=== PATIENT | male | born 1950 | race Two or more races ===

== ENCOUNTER 2016-11-15 20:04 | Inpatient (IN) | payer MEDICARE, OTHER ==
[~2016-11-15] VITALS: Ht 170.2 cm; Wt 90.7 kg
[~2016-11-15 20:04] MED LIST: ADVAIR 500-501 EACH INH; ASPIR 8181 MG ORAL; ASPIRIN81 MG ORAL; BROMFENAC 0.07%; CARVEDILOL25 MG ORAL; CLONAZEPAM2 MG PO; CLOPIDOGREL75 MG ORAL; DORZOLAMIDE HCL10 M1 OP; FISH OIL300 M1 PO; LISINOPRIL20 MG ORAL; LISINOPRIL5 MG ORAL; LOSARTAN POTASS50 MG ORAL; METOPROLOL TART50 M1 ORAL; NORVASC10 MG ORAL; OXYCODONE HCL10 MG ORAL; PANTOPRAZOLE SO20 MG ORAL; PLAVIX75 MG ORAL; PROTONIX40 MG ORAL; PROVENTIL HFA6.7 G1 IH; RENVELA800 MG ORAL; SENSIPAR90 MG PO; SPIRIVA INHALE1 PUF1 INH
[2016-11-15 20:12] VITALS: BP 145/78
[2016-11-15] MEDS ORDERED: Famotidine 20 MG/ 2ML VIAL IVP ONE (20:15)
[2016-11-15] MEDS ORDERED: Nitroglycerin 2% oint pkt TOPIC ONE (20:15)
[2016-11-15 20:59] LABS: BASOPHILS % (AUTO) 1.3 % (0.0-2.0); EOSINOPHILS % (AUTO) 14.3 % (0.0-3.0); LYMPHOCYTES % (AUTO) 22.1 % (20.0-45.0); MEAN CORPUSCULAR HEMOGLOBIN 29.5 PG (27.0-31.0); MEAN CORPUSCULAR VOLUME 92 FL (80-99); MEAN PLATELET VOLUME 5.7 FL (6.5-10.1); MONOCYTES % (AUTO) 5.8 % (1.0-10.0); NEUTROPHILS % (AUTO) 56.5 % (45.0-75.0); PLATELET COUNT 260 K/UL (150-450); RED BLOOD COUNT 4.16 M/UL (4.70-6.10); RED CELL DISTRIBUTION WIDTH 19.1 % (11.6-14.8); WHITE BLOOD COUNT 6.7 K/UL (4.8-10.8)
[2016-11-15 21:00] LABS: INR 0.9 (0.9-1.1); PROTHROMBIN TIME 9.5 SEC (9.30-11.50)
[2016-11-15 21:08] LABS: ALANINE AMINOTRANSFERASE 9 U/L (3-41); ALBUMIN/GLOBULIN RATIO 1.1 (1.0-2.7); ALCOHOL 107 mg/dL; ANION GAP 20 (5-15); ASPARTATE AMINO TRANSFERASE 14 U/L (5-40); CARBON DIOXIDE 25 mEQ/L (20-30); CHLORIDE 93 mEQ/L (98-107); CREATININE 7.5 mg/dL (0.7-1.2); GLOMERULAR FILTRATION RATE 7.3 mL/min (>60); HEMOLYSIS 3; POTASSIUM 4.7 mEQ/L (3.4-4.9); SODIUM 138 mEQ/L (135-145); TOTAL PROTEIN 8.5 g/dL (6.6-8.7)
[2016-11-15 21:11] LABS: TROPONIN I < 0.30 ng/mL (<=0.30)
[2016-11-15] MEDS ORDERED: Morphine Sulfate 4mg/ml Inj IVP ONE (21:15)
[2016-11-15 22:46] VITALS: BP 119/64
--- NOTE | 2016-11-15 22:53 | Emergency Room Report ---
History of Present Illness General Chief Complaint: Chest Pain Source: Patient Present Illness HPI Patient presents with left-sided chest pain. It's pressure. He states it's been for several days now ever since a revision of his last dialysis fistula in his left upper arm. Denies any cough or fever. Pain is 7/10, constant, radiates to shoulders, pressure. Not take aspirin today (on plavix). EKG field , ST PVCs, no STEMI. He has CAD and post CABG. Recent treadmill 06/2016. Prior stents. Patient with pain from neuropathy. No NVD, dysuria. No rashes. Slight headahce. No change vision. Diabetic on oral meds. Admits to drinking alcohol. Dialysis , , Sat. Allergies: Coded Allergies: ASPIRIN (Verified Allergy, Unknown, 11/15/16) Patient History Past Medical History: see triage record Past Surgical History: CABG, PTCA, other - fistula, metatarsal amputations Social History: Denies: smoking Social History Narrative home Reviewed Nursing Documentation: PMH: Agreed, PSxH: Agreed Nursing Documentation-PMH Hx Cardiac Problems: Yes - Carotid stent Hx Hypertension: Yes Hx COPD: Yes Hx Diabetes: Yes Hx Cancer: No Hx Gastrointestinal Problems: No Hx Dialysis: Yes Hx Neurological Problems: No Hx Peripheral Neuropathy: Yes Review of Systems All Other Systems: negative except mentioned in HPI Physical Exam Vital Signs Date Time Temp Pulse Resp B/P Pulse Ox O2 Delivery O2 Flow Rate FiO2 11/15/16 20:08 98.4 103 18 145/78 98 Room Air Sp02 EP Interpretation: reviewed, normal General Appearance: well appearing, no apparent distress, GCS 15, other - smells of alcohol Head: normocephalic Eyes: bilateral eye PERRL, bilateral eye normal inspection ENT: moist mucus membranes Neck: supple Respiratory: chest non-tender, lungs clear, normal breath sounds Cardiovascular #1: regular rate, rhythm, no edema Cardiovascular #2: 2+ radial (L) - fistula LUE with thrill Gastrointestinal: normal inspection, normal bowel sounds, non tender, no mass, non-distended Musculoskeletal: back normal, gait/station normal, normal range of motion, other - post metatarsal amputations Neurologic: alert, oriented x3, grossly normal Psychiatric: mood/affect normal Skin: normal inspection, warm/dry Medical Decision Making Diagnostic Impression: Primary Impression: ACS (acute coronary syndrome) Additional Impressions: ESRD (end stage renal disease) on dialysis Alcohol intoxication Qualified Codes: F10.129 - Alcohol abuse with intoxication, unspecified ER Course Patient with risk factors for ACS with CP. DDx: ami, acs, chest wall pain, CHF , occult infection amongst others. Immediate evaluation with labs, EKG, CXR. Treatment with aspirin and nitrates. Patient with pain and given analgesics. EKG not normal but not STEMI. CXR as below. Labs with negative troponin. BA + and significant. BNP high, will need dialysis, but NAD. Needs observation for possible ACS. Requiring significant doses of analgesia. Apparent h/o chronic pain. Admit tele Dr. Darden. Laboratory Tests Test 11/15/16 20:30 White Blood Count 6.7 K/UL (4.8-10.8) Red Blood Count 4.16 M/UL (4.70-6.10) L Hemoglobin 12.3 G/DL (14.2-18.0) L Hematocrit 38.4 % (42.0-52.0) L Mean Corpuscular Volume 92 FL (80-99) Mean Corpuscular Hemoglobin 29.5 PG (27.0-31.0) Mean Corpuscular Hemoglobin Concent 32.0 G/DL (32.0-36.0) Red Cell Distribution Width 19.1 % (11.6-14.8) H Platelet Count 260 K/UL (150-450) Mean Platelet Volume 5.7 FL (6.5-10.1) L Neutrophils (%) (Auto) 56.5 % (45.0-75.0) Lymphocytes (%) (Auto) 22.1 % (20.0-45.0) Monocytes (%) (Auto) 5.8 % (1.0-10.0) Eosinophils (%) (Auto) 14.3 % (0.0-3.0) H Basophils (%) (Auto) 1.3 % (0.0-2.0) Prothrombin Time 9.5 SEC (9.30-11.50) Prothrombin Time INR 0.9 (0.9-1.1) PTT 28 SEC (23-33) Sodium Level 138 mEQ/L (135-145) Potassium Level 4.7 mEQ/L (3.4-4.9) Chloride Level 93 mEQ/L (98-107) L Carbon Dioxide Level 25 mEQ/L (20-30) Anion Gap 20 (5-15) H Blood Urea Nitrogen 31 mg/dL (7-23) H Creatinine 7.5 mg/dL (0.7-1.2) H Estimate Glomerular Filtration Rate 7.3 mL/min (>60) Glucose Level 141 mg/dL (74-106) H Calcium Level 9.0 mg/dL (8.6-10.2) Total Bilirubin 0.3 mg/dL (0.0-1.2) Aspartate Amino Transferase (AST) 14 U/L (5-40) Alanine Aminotransferase (ALT) 9 U/L (3-41) Alkaline Phosphatase 124 U/L (40-129) Total Creatine Kinase 70 U/L (38-174) Troponin I < 0.30 ng/mL (<=0.30) Pro-B-Type Natriuretic Peptide 6369 pg/mL (0-125) H Total Protein 8.5 g/dL (6.6-8.7) Albumin 4.5 g/dL (3.5-5.2) Globulin 4.0 g/dL Albumin/Globulin Ratio 1.1 (1.0-2.7) Serum Alcohol 107 mg/dL EKG Diagnostic Results Rate: tachycardiac ST Segments: no acute changes - NSSTTW changes ASA given to the pt in ED: Yes Rhythm Strip Diag. Results EP Interpretation: yes Rhythm: no PVC's, no ectopy, other - ST Chest X-Ray Diagnostic Results EP Interpretation: Yes Findings: no pneumothorax, other - pulm HTN and possible L effusion Number of Views: 1 Last Vital Signs Date Time Temp Pulse Resp B/P Pulse Ox O2 Delivery O2 Flow Rate FiO2 11/16/16 04:13 97.9 99 20 152/87 97 Room Air Status: improved Disposition: ADMITTED INPATIENT Condition: Serious Referrals: Baldev Darden MD (PCP) Robert Barone M.D. Nov 15, 2016 22:53
[2016-11-15] MEDS ORDERED: HYDROmorphone 1mg/ml Carpuject IVP ONE (23:00)
[2016-11-16] VITALS: BP 156/91
[2016-11-16] MEDS ORDERED: LIPITOR80 MG ORAL (02:09)
[2016-11-16] MEDS ORDERED: VITAMIN D400 UNI2 PO (02:09)
[2016-11-16] MEDS: Hydromorphone 0.5mg/0.5ml inj IVP PRN ×2 (03:44→08:53)
[2016-11-16 04:13] VITALS: BP 152/87
[2016-11-16] MEDS: NovoLOG Insulin Flexpen SUBQ SCH ×4 (06:22→21:00)
[2016-11-16] MEDS: Heparin 5000 units/ml inj SUBQ SCH ×3 (06:23→21:16)
[2016-11-16 07:29] LABS: ALBUMIN/GLOBULIN RATIO 1.2 (1.0-2.7); CALCIUM 8.6 mg/dL (8.6-10.2); CREATININE 8.5 mg/dL (0.7-1.2); GLOMERULAR FILTRATION RATE 6.3 mL/min (>60); MAGNESIUM 2.2 mg/dL (1.7-2.5); TOTAL PROTEIN 6.8 g/dL (6.6-8.7)
[2016-11-16 07:40] LABS: BASOPHILS % (AUTO) 1.3 % (0.0-2.0); EOSINOPHILS % (AUTO) 14.4 % (0.0-3.0); LYMPHOCYTES % (AUTO) 21.5 % (20.0-45.0); MEAN CORPUSCULAR HEMOGLOBIN 29.7 PG (27.0-31.0); MEAN CORPUSCULAR HGB CONC 32.9 G/DL (32.0-36.0); MEAN CORPUSCULAR VOLUME 90 FL (80-99); MEAN PLATELET VOLUME 5.9 FL (6.5-10.1); MONOCYTES % (AUTO) 7.5 % (1.0-10.0); NEUTROPHILS % (AUTO) 55.3 % (45.0-75.0); PLATELET COUNT 256 K/UL (150-450); RED CELL DISTRIBUTION WIDTH 19.2 % (11.6-14.8); WHITE BLOOD COUNT 6.4 K/UL (4.8-10.8)
[2016-11-16 07:43] LABS: TROPONIN I < 0.30 ng/mL (<=0.30)
[2016-11-16 07:59] LABS: POTASSIUM 6.9 mEQ/L (3.4-4.9)
[2016-11-16] MEDS ORDERED: Sodium Polystyrene Sulfonate 15gm Powder ORAL ONE (08:30)
[2016-11-16] MEDS: Losartan 25mg tab ORAL SCH (08:54)
[2016-11-16] MEDS: Carvedilol 25mg Tab ORAL SCH (08:54)
[2016-11-16] MEDS: Metoprolol 50mg tab ORAL SCH ×2 (08:54→18:51)
[2016-11-16] MEDS ORDERED: Losartan 50mg tab ORAL SCH (09:00)
[2016-11-16] MEDS ORDERED: Sensipar 30mg Tab ORAL SCH ×2 (09:00)
[2016-11-16 09:30] VITALS: BP 184/93
--- NOTE | 2016-11-16 11:24 | History & Physical ---
History and Physical History & Physicial Dictated for Int Med-Dr Darden no. [id number]. VINCENT ROBERSON Nov 16, 2016 11:24
--- NOTE | 2016-11-16 11:52 | Diagnostic Imaging Report ---
Indication: Chest pain Technique: One view of the chest Comparison: 06/15/2016 Findings: Power pack again overlies the heart, demonstrated on prior CT represent a subcutaneous power pack. There is now a left-sided pleural effusion, [id number]. No definite congestion or infiltrate. Right pleural space is clear. The heart is borderline enlarged. Evidence of prior CABG Impression: Left pleural effusion, new since 06/15/2016 Other findings as noted This represents a discrepancy from the ER preliminary report. Discrepant findings were phoned to Dr. Darden at the time of interpretation
--- NOTE | 2016-11-16 11:54 | Consultation ---
Consult Note Consult Note 66 YO M with significant cardiac history BIBEMS Patient presents with left-sided chest pain. It's pressure. He states it's been for several days now ever since a revision of his last dialysis fistula in his left upper arm. Denies any cough or fever. i was asked to evaluate the patient at the request of Dr Darden for dialysis management PH: 1. Coronary artery disease, status post stent placement in 2013 and coronary artery bypass graft in 2015. 2. Diabetes type 2. 3. Hypertension. 4. End-stage renal disease, on hemodialysis every Wednesday, , and Wednesday. The patient's last dialysis was 06/13/16 5. Diabetic peripheral neuropathy. 6. Peripheral vascular disease. 7. Diabetic nephropathy. Patient interviewed, Examined, Labs reviewed . Assessment/Plan ESRD with high K ACS Plan: Dialysis [facility]A for high K Per cardiology GUNNER BARRERA Nov 16, 2016 11:54
--- NOTE | 2016-11-16 12:14 | Cardiology Report ---
APPROVED REPORT EKG Measurement Heart [id number] [id number] Sinus tachycardia Anteroseptal infarct, age undetermined Abnormal ECG
[2016-11-16 13:01] VITALS: BP 123/50
--- NOTE | 2016-11-16 14:02 | Cardiac Electrophysiology PN ---
Subjective Subjective [id number]. CP in a patient with CABG and no ischemia on stress test 06/2016. Repeat stress test. Objective Last 24 Hour Vital Signs Date Time Temp Pulse Resp B/P Pulse Ox O2 Delivery O2 Flow Rate FiO2 11/16/16 13:01 97.2 98 18 123/50 96 Room Air 11/16/16 13:00 Room Air 11/16/16 12:00 102 11/16/16 10:02 Room Air 11/16/16 09:30 98.0 96 20 184/93 Room Air 11/16/16 08:54 153/85 11/16/16 08:54 94 153/85 11/16/16 08:54 94 153/85 11/16/16 08:54 94 153/85 11/16/16 08:53 96 18 99 Room Air 21 11/16/16 08:53 96 18 99 Room Air 21 11/16/16 08:00 99 11/16/16 04:13 97.9 99 20 152/87 97 Room Air 11/16/16 03:55 99 11/16/16 00:13 99 11/16/16 00:00 98.1 103 20 156/91 95 Room Air 11/15/16 23:15 98.4 100 22 119/64 98 Room Air 11/15/16 22:46 98.4 100 22 119/64 98 Room Air 11/15/16 21:59 98.4 11/15/16 20:41 121/56 11/15/16 20:12 103 18 Room Air 11/15/16 20:12 98.4 97 18 145/78 98 Room Air 11/15/16 20:08 98.4 103 18 145/78 98 Room Air Intake and Output 11/15/16 11/16/16 19:00 07:00 Intake Total 140 ml Balance 140 ml Intake Oral 140 ml Laboratory Tests Test 11/15/16 20:30 11/16/16 05:15 White Blood Count 6.7 K/UL (4.8-10.8) 6.4 K/UL (4.8-10.8) Red Blood Count 4.16 M/UL (4.70-6.10) L 4.00 M/UL (4.70-6.10) L Hemoglobin 12.3 G/DL (14.2-18.0) L 11.9 G/DL (14.2-18.0) L Hematocrit 38.4 % (42.0-52.0) L 36.1 % (42.0-52.0) L Mean Corpuscular Volume 92 FL (80-99) 90 FL (80-99) Mean Corpuscular Hemoglobin 29.5 PG (27.0-31.0) 29.7 PG (27.0-31.0) Mean Corpuscular Hemoglobin Concent 32.0 G/DL (32.0-36.0) 32.9 G/DL (32.0-36.0) Red Cell Distribution Width 19.1 % (11.6-14.8) H 19.2 % (11.6-14.8) H Platelet Count 260 K/UL (150-450) 256 K/UL (150-450) Mean Platelet Volume 5.7 FL (6.5-10.1) L 5.9 FL (6.5-10.1) L Neutrophils (%) (Auto) 56.5 % (45.0-75.0) 55.3 % (45.0-75.0) Lymphocytes (%) (Auto) 22.1 % (20.0-45.0) 21.5 % (20.0-45.0) Monocytes (%) (Auto) 5.8 % (1.0-10.0) 7.5 % (1.0-10.0) Eosinophils (%) (Auto) 14.3 % (0.0-3.0) H 14.4 % (0.0-3.0) H Basophils (%) (Auto) 1.3 % (0.0-2.0) 1.3 % (0.0-2.0) Prothrombin Time 9.5 SEC (9.30-11.50) Prothromb Time International Ratio 0.9 (0.9-1.1) Activated Partial Thromboplast Time 28 SEC (23-33) Sodium Level 138 mEQ/L (135-145) 140 mEQ/L (135-145) Potassium Level 4.7 mEQ/L (3.4-4.9) 6.9 mEQ/L (3.4-4.9) *H Chloride Level 93 mEQ/L (98-107) L 97 mEQ/L (98-107) L Carbon Dioxide Level 25 mEQ/L (20-30) 26 mEQ/L (20-30) Anion Gap 20 (5-15) H 17 (5-15) H Blood Urea Nitrogen 31 mg/dL (7-23) H 39 mg/dL (7-23) H Creatinine 7.5 mg/dL (0.7-1.2) H 8.5 mg/dL (0.7-1.2) H Estimat Glomerular Filtration Rate 7.3 mL/min (>60) 6.3 mL/min (>60) Glucose Level 141 mg/dL (74-106) H 110 mg/dL (74-106) H Calcium Level 9.0 mg/dL (8.6-10.2) 8.6 mg/dL (8.6-10.2) Total Bilirubin 0.3 mg/dL (0.0-1.2) 0.3 mg/dL (0.0-1.2) Aspartate Amino Transf (AST/SGOT) 14 U/L (5-40) 11 U/L (5-40) Alanine Aminotransferase (ALT/SGPT) 9 U/L (3-41) 5 U/L (3-41) Alkaline Phosphatase 124 U/L (40-129) 114 U/L (40-129) Total Creatine Kinase 70 U/L (38-174) Troponin I < 0.30 ng/mL (<=0.30) < 0.30 ng/mL (<=0.30) Pro-B-Type Natriuretic Peptide 6369 pg/mL (0-125) H Total Protein 8.5 g/dL (6.6-8.7) 6.8 g/dL (6.6-8.7) Albumin 4.5 g/dL (3.5-5.2) 3.8 g/dL (3.5-5.2) Globulin 4.0 g/dL 3.0 g/dL Albumin/Globulin Ratio 1.1 (1.0-2.7) 1.2 (1.0-2.7) Serum Alcohol 107 mg/dL Phosphorus Level 5.0 mg/dL (2.5-4.8) H Magnesium Level 2.2 mg/dL (1.7-2.5) LUISA JHAVERI Nov 16, 2016 14:02
[2016-11-16 14:59] LABS: CALCIUM 8.4 mg/dL (8.6-10.2); CREATININE 5.2 mg/dL (0.7-1.2); GLOMERULAR FILTRATION RATE 11.2 mL/min (>60); POTASSIUM 3.8 mEQ/L (3.4-4.9)
--- NOTE | 2016-11-16 15:10 | Consultation ---
History of Present Illness General Date patient seen: Nov 16, 2016 Chief Complaint: Chest Pain Referring physician: Dr. Marie Reason for Consultation: Pleural effusion Present Illness HPI 66 year old male with hx of HTN, DM, ESRF, on HD T, ,, patient [place] [facility] [place] with cc of left-sided chest pain. It's pressure like . He states it's been for several days now ever since a revision of his last dialysis fistula in his left upper arm. Denies any cough or fever. Her initial cxr showed left pleural effusion. I was asked to evaluate this finding. Allergies: Coded Allergies: ASPIRIN (Verified Allergy, Unknown, 11/15/16) Medication History Scheduled Amlodipine Besylate (Norvasc), 10 MG ORAL DAILY, (Reported) Atorvastatin (Lipitor), 40 MG ORAL BEDTIME, (Reported) Carvedilol* (Carvedilol*), 25 MG ORAL DAILY, (Reported) Clonazepam (Clonazepam), 2 MG PO TID, (Reported) Clopidogrel Bisulfate* (Plavix*), 75 MG ORAL DAILY, (Reported) Losartan Potassium* (Losartan Potassium*), 50 MG ORAL DAILY, (Reported) Metoprolol Tartrate* (Metoprolol Tartrate*), 50 MG ORAL BID, (Reported) Pantoprazole* (Protonix*), 40 MG ORAL DAILY, (Reported) Sevelamer Carbonate (Renvela), 800 MG ORAL THREE TIMES A DAY, (Reported) Tiotropium [place] (Spiriva), 1 PUFF INH DAILY, (Reported) Miscellaneous Medications Cholecalciferol (Vitamin D3) (Vitamin D), 400 UNIT PO, (Reported) Cinacalcet Hcl (Sensipar), 90 MG PO, (Reported) Discontinued Medications Albuterol Sulfate (Proventil Hfa), 6.7 GM IH PRN, (Reported) Discontinued Reason: MD discontinued med Aspirin* (Aspirin*), 81 MG ORAL DAILY, (Reported) Discontinued Reason: MD discontinued med Aspirin* (Aspir 81*), 81 MG ORAL DAILY, (Reported) Discontinued Reason: MD discontinued med Clopidogrel* (Clopidogrel*), 75 MG ORAL DAILY, (Reported) Discontinued Reason: MD discontinued med Dorzolamide Hcl (Dorzolamide Hcl), 10 ML OP, (Reported) Discontinued Reason: MD discontinued med Fluticasone/Salmeterol (Advair 500-50 Diskus), 1 PUFF INH BID, (Reported) Discontinued Reason: MD discontinued med Lisinopril (Lisinopril*), 40 MG ORAL DAILY, (Reported) Discontinued Reason: MD discontinued med Lisinopril (Lisinopril*), 5 MG ORAL DAILY, (Reported) Discontinued Reason: MD discontinued med [place]-3 Fatty Acids (Fish Oil), 800 MG PO BID, (Reported) Discontinued Reason: MD discontinued med Oxycodone Hcl* (Oxycodone Hcl*), 10 MG ORAL BID, (Reported) Discontinued Reason: MD discontinued med Pantoprazole (Pantoprazole), 40 MG ORAL BID, (Reported) Discontinued Reason: MD discontinued med [Prolensa 0.07% Opth], (Reported) Discontinued Reason: MD discontinued med Patient History Healthcare decision maker Resuscitation status Full Code Advanced Directive on File Past Medical/Surgical History Past Medical/Surgical History: (1) Diabetic peripheral neuropathy (2) End stage renal failure on dialysis (3) Chest pain (4) Anemia (5) Diabetes mellitus (6) Hemodialysis patient Review of Systems Cardiovascular: Reports: chest pain All Other Systems: negative except mentioned in HPI Physical Exam General Appearance: WD/WN Lines, tubes and drains: peripheral, dialysis access HEENT: normocephalic, atraumatic Neck: non-tender, supple Respiratory/Chest: chest wall non-tender, lungs clear Cardiovascular/Chest: normal peripheral pulses, normal rate Abdomen: normal bowel sounds, non tender Genitourinary/Rectal: normal genital exam Extremities: normal range of motion, non-tender 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 Last 24 Hour Vital Signs Date Time Temp Pulse Resp B/P Pulse Ox O2 Delivery O2 Flow Rate FiO2 11/16/16 13:01 97.2 98 18 123/50 96 Room Air 11/16/16 13:00 Room Air 11/16/16 12:00 102 11/16/16 10:02 Room Air 11/16/16 09:30 98.0 96 20 184/93 Room Air 11/16/16 08:54 153/85 11/16/16 08:54 94 153/85 11/16/16 08:54 94 153/85 11/16/16 08:54 94 153/85 11/16/16 08:53 96 18 99 Room Air 21 11/16/16 08:53 96 18 99 Room Air 21 11/16/16 08:00 99 11/16/16 04:13 97.9 99 20 152/87 97 Room Air 11/16/16 03:55 99 11/16/16 00:13 99 11/16/16 00:00 98.1 103 20 156/91 95 Room Air 11/15/16 23:15 98.4 100 22 119/64 98 Room Air 11/15/16 22:46 98.4 100 22 119/64 98 Room Air 11/15/16 21:59 98.4 11/15/16 20:41 121/56 11/15/16 20:12 103 18 Room Air 11/15/16 20:12 98.4 97 18 145/78 98 Room Air 11/15/16 20:08 98.4 103 18 145/78 98 Room Air Intake and Output 11/15/16 11/16/16 19:00 07:00 Intake Total 140 ml Balance 140 ml Intake Oral 140 ml Laboratory Tests Test 11/15/16 20:30 11/16/16 05:15 11/16/16 14:30 White Blood Count 6.7 K/UL (4.8-10.8) 6.4 K/UL (4.8-10.8) Red Blood Count 4.16 M/UL (4.70-6.10) L 4.00 M/UL (4.70-6.10) L Hemoglobin 12.3 G/DL (14.2-18.0) L 11.9 G/DL (14.2-18.0) L Hematocrit 38.4 % (42.0-52.0) L 36.1 % (42.0-52.0) L Mean Corpuscular Volume 92 FL (80-99) 90 FL (80-99) Mean Corpuscular Hemoglobin 29.5 PG (27.0-31.0) 29.7 PG (27.0-31.0) Mean Corpuscular Hemoglobin Concent 32.0 G/DL (32.0-36.0) 32.9 G/DL (32.0-36.0) Red Cell Distribution Width 19.1 % (11.6-14.8) H 19.2 % (11.6-14.8) H Platelet Count 260 K/UL (150-450) 256 K/UL (150-450) Mean Platelet Volume 5.7 FL (6.5-10.1) L 5.9 FL (6.5-10.1) L Neutrophils (%) (Auto) 56.5 % (45.0-75.0) 55.3 % (45.0-75.0) Lymphocytes (%) (Auto) 22.1 % (20.0-45.0) 21.5 % (20.0-45.0) Monocytes (%) (Auto) 5.8 % (1.0-10.0) 7.5 % (1.0-10.0) Eosinophils (%) (Auto) 14.3 % (0.0-3.0) H 14.4 % (0.0-3.0) H Basophils (%) (Auto) 1.3 % (0.0-2.0) 1.3 % (0.0-2.0) Prothrombin Time 9.5 SEC (9.30-11.50) Prothromb Time International Ratio 0.9 (0.9-1.1) Activated Partial Thromboplast Time 28 SEC (23-33) Sodium Level 138 mEQ/L (135-145) 140 mEQ/L (135-145) 140 mEQ/L (135-145) Potassium Level 4.7 mEQ/L (3.4-4.9) 6.9 mEQ/L (3.4-4.9) *H 3.8 mEQ/L (3.4-4.9) Chloride Level 93 mEQ/L (98-107) L 97 mEQ/L (98-107) L 92 mEQ/L (98-107) L Carbon Dioxide Level 25 mEQ/L (20-30) 26 mEQ/L (20-30) 33 mEQ/L (20-30) H Anion Gap 20 (5-15) H 17 (5-15) H 15 (5-15) Blood Urea Nitrogen 31 mg/dL (7-23) H 39 mg/dL (7-23) H 19 mg/dL (7-23) Creatinine 7.5 mg/dL (0.7-1.2) H 8.5 mg/dL (0.7-1.2) H 5.2 mg/dL (0.7-1.2) H Estimat Glomerular Filtration Rate 7.3 mL/min (>60) 6.3 mL/min (>60) 11.2 mL/min (>60) Glucose Level 141 mg/dL (74-106) H 110 mg/dL (74-106) H 100 mg/dL (74-106) Calcium Level 9.0 mg/dL (8.6-10.2) 8.6 mg/dL (8.6-10.2) 8.4 mg/dL (8.6-10.2) L Total Bilirubin 0.3 mg/dL (0.0-1.2) 0.3 mg/dL (0.0-1.2) Aspartate Amino Transf (AST/SGOT) 14 U/L (5-40) 11 U/L (5-40) Alanine Aminotransferase (ALT/SGPT) 9 U/L (3-41) 5 U/L (3-41) Alkaline Phosphatase 124 U/L (40-129) 114 U/L (40-129) Total Creatine Kinase 70 U/L (38-174) Troponin I < 0.30 ng/mL (<=0.30) < 0.30 ng/mL (<=0.30) Pro-B-Type Natriuretic Peptide 6369 pg/mL (0-125) H Total Protein 8.5 g/dL (6.6-8.7) 6.8 g/dL (6.6-8.7) Albumin 4.5 g/dL (3.5-5.2) 3.8 g/dL (3.5-5.2) Globulin 4.0 g/dL 3.0 g/dL Albumin/Globulin Ratio 1.1 (1.0-2.7) 1.2 (1.0-2.7) Serum Alcohol 107 mg/dL Phosphorus Level 5.0 mg/dL (2.5-4.8) H Magnesium Level 2.2 mg/dL (1.7-2.5) Height (Feet): 5 Height (Inches): 7.00 Weight (Pounds): 200 Medications Current Medications Medications (Trade) Dose Ordered Sig/Krissy Route PRN Reason Start Time Stop Time Status Last Admin Dose Admin Amlodipine Besylate (Norvasc) 10 mg DAILY ORAL 11/16/16 09:00 12/16/16 08:59 Atorvastatin Calcium (Lipitor) 40 mg BEDTIME ORAL 11/16/16 21:00 12/16/16 20:59 Carvedilol (Coreg) 25 mg DAILY ORAL 11/16/16 09:00 12/16/16 08:59 Clonazepam (KlonoPIN) 2 mg TID ORAL 11/16/16 09:00 11/23/16 08:59 11/16/16 13:08 Clopidogrel Bisulfate (Plavix) 75 mg DAILY ORAL 11/16/16 09:00 12/16/16 08:59 11/16/16 08:52 Dextrose (Dextrose 50%) STAT PRN IV Hypoglycemia 11/16/16 02:00 12/16/16 01:59 Heparin Sodium (Porcine) (Heparin 5000 units/ml) 5,000 units EVERY 8 HOURS SUBQ 11/16/16 06:00 12/16/16 05:59 11/16/16 13:12 Hydromorphone HCl (Dilaudid) 2 mg Q4H PRN IVP PAIN 4-10 11/16/16 12:00 11/23/16 11:59 11/16/16 12:05 Insulin Aspart (NovoLOG) BEFORE MEALS AND HS SUBQ 11/16/16 06:30 12/16/16 06:29 11/16/16 12:11 Losartan Potassium (Cozaar) 25 mg DAILY ORAL 11/16/16 09:00 12/16/16 08:59 Metoprolol Tartrate (Lopressor) 50 mg BID ORAL 11/16/16 09:00 12/16/16 08:59 Pantoprazole (Protonix) 40 mg EVERY 12 HOURS ORAL 11/16/16 09:00 12/16/16 08:59 11/16/16 08:52 Sevelamer Carbonate (Renvela) 2,400 mg THREE TIMES A DAY ORAL 11/16/16 09:00 12/16/16 08:59 11/16/16 13:08 Tiotropium [place] (Spiriva Inhaler) 1 puff DAILY INH 11/16/16 09:00 12/16/16 08:59 11/16/16 08:53 Vitamin D (Vitamin D) 1,000 intlu DAILY ORAL 11/17/16 09:00 12/17/16 08:59 Assessment/Plan Problem List: (1) Pleural effusion ICD Codes: J90 - Pleural effusion, not elsewhere classified SNOMED: 91136260 (2) Acute coronary syndrome ICD Codes: I24.9 - Acute ischemic heart disease, unspecified SNOMED: 995017660 (3) End stage renal failure on dialysis ICD Codes: N18.6 - End stage renal disease; Z99.2 - Dependence on renal dialysis SNOMED: 474699463 (4) Diabetes mellitus ICD Codes: E11.9 - Type 2 diabetes mellitus without complications SNOMED: 69881090 (5) HTN (hypertension) ICD Codes: I10 - Essential (primary) hypertension SNOMED: 48982419 Qualifiers: Qualified Codes: I10 - Essential (primary) hypertension Assessment/Plan serial ekg, troponin, echo symptomatic treatment pleural effusion is most likely secondary to fluid overload, there is no leukocytosis, fever or any other sing of infection or inflammation. suggest to remove more fluid during Hd. F/u cxr in a few days. JUAN SPENCE Nov 16, 2016 15:10
[2016-11-16 16:00] VITALS: BP 156/73
--- NOTE | 2016-11-16 20:39 | History and Physical Report ---
DATE OF ADMISSION: 11/15/2016 CHIEF COMPLAINT: The patient is a 66-year-old male with history of coronary artery disease, who presents with chief complaint of left-sided chest pain. HISTORY OF PRESENT ILLNESS: Began on 11/13/2016. The patient began to experience left-sided chest pain. There is no radiation to the jaw or to the shoulder. The patient has a history of coronary artery disease, status post coronary artery bypass graft. The patient's initial troponin level was within normal limits. The patient is admitted for chest pain to rule out acute coronary syndrome. Of note, the patient's BNP was found to be elevated at 6369. PAST MEDICAL HISTORY: Significant for. 1. Coronary artery disease, status post coronary artery bypass graft. 2. Diabetes type 2. 3. Hypertension. 4. End-stage renal disease, on hemodialysis every Wednesday, , and Wednesday. The patient's last dialysis was on 11/13/2016. 5. Hypertension. 6. Diabetic peripheral neuropathy. 7. Peripheral vascular disease. 8. Diabetic nephropathy. PAST SURGICAL HISTORY: Significant for. 1. Coronary artery bypass graft in 2015. 2. Coronary artery stent placement in 2013. 3. Left arteriovenous graft for dialysis. 4. 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 CURRENT MEDICATIONS: 1. Norvasc 10 mg one tablet p.o. daily. 2. Lipitor 40 mg one tablet p.o. q.h.s. 3. Carvedilol 25 mg one tablet p.o. twice daily. 4. Vitamin D3 400 units p.o. daily. 5. Sensipar 90 mg one tablet p.o. daily. 6. Clonazepam 2 mg one tablet p.o. 3 times daily. 7. Plavix 75 mg one tablet p.o. daily. 8. Losartan 50 mg one tablet p.o. daily. 9. Metoprolol 50 mg one tablet p.o. twice daily. 10. Protonix 40 mg one tablet p.o. daily. 11. Renvela 800 mg one tablet p.o. 3 times daily. 12. Spiriva 18 mcg one puff p.o. daily. ALLERGIES: Aspirin. SOCIAL HISTORY: The patient is . The patient is disabled. The patient denies tobacco use having quit in 2014. The patient admits to rare alcohol use. REVIEW OF SYSTEMS: Constitutional: The patient denies weight loss or weight gain. The patient denies fevers or chills. HEENT: The patient denies ear or throat pain. Cardiovascular: The patient complains of chest pain as above. The patient states chest pain is worse with deep inspiration. The patient denies palpitations. Abdomen: The patient denies nausea, vomiting, diarrhea, or constipation. Genitourinary: The patient denies dysuria or increased frequency of urination. Neuromuscular: The patient denies seizures or generalized weakness. PHYSICAL EXAMINATION: VITAL SIGNS: Temperature 97.9 degrees, pulse 99, respiratory rate 20, and blood pressure 152/87. GENERAL: The patient is a well-developed and well-nourished male, who is currently on dialysis. HEENT: Eyes, pupils are equal and responsive to light and accommodation. Extraocular movements are intact. NECK: Supple without lymphadenopathy. CHEST: Lungs are clear to auscultation bilaterally without wheezes or rales. CARDIOVASCULAR: Regular rhythm and rate. S1 and S2 are normal without murmurs, rubs, or gallops. ABDOMEN: Soft, nontender, and nondistended. Positive bowel sounds. No evidence of hepatosplenomegaly. Currently, no rebound or guarding. EXTREMITIES: Presence of bilateral metatarsal amputations. Otherwise, without clubbing, cyanosis, or edema. RECTAL/GENITAL: Refused. NEUROLOGIC: Cranial nerves II through XII are grossly intact without focal deficits. Motor strength is 5/5 bilaterally. Deep tendon reflexes are 2+ plantar. LABORATORY STUDIES: WBC 6.7, hemoglobin 12.2, hematocrit 30.4, and platelets 216,000. Sodium 138, potassium 4.7, chloride 93, CO2 25, BUN 31, creatinine 7.5, and glucose 141. BNP elevated at 6359. Troponin normal at less than 0.3. Chest x-ray is pending. ASSESSMENT: This is a 66-year-old male. 1. Chest pain. 2. Type 2 diabetes. 3. Uncontrolled hypertension. 4. End-stage renal disease. 5. Diabetic nephropathy. 6. Diabetic peripheral vascular disease. TREATMENT: 1. Chest pain. A Cardiology consultation is pending with Dr. Carlos Springer. An echocardiogram is pending. 2. End-stage renal disease. A Nephrology consultation has been obtained with Dr. Jose Flores. The patient is currently on hemodialysis. We will follow recommendation of Nephrology concerning dialysis. The patient's current potassium level is 6.9. The patient is receiving emergent dialysis. 3. Hypertension. Continue Norvasc and Coreg as above. 4. Diabetic peripheral neuropathy. 5. Diabetic peripheral nephropathy. 6. History of peripheral vascular disease, status post amputation bilateral metatarsal feet. Dima Marie M.D. DR: DMITRI JOB#: [id number] CC:
--- NOTE | 2016-11-16 21:59 | Consultation ---
DATE OF CONSULTATION: 11/16/2016 CARDIOLOGY CONSULTATION CONSULTING PHYSICIAN: Carlos Springer M.D. REFERRING PHYSICIAN: Baldev Darden M.D. REASON FOR CONSULTATION: Chest pain in addition with history of coronary artery bypass graft. HISTORY OF PRESENT ILLNESS: The patient is a very pleasant 66-year-old gentleman under my Cardiology care with history of hypertension, diabetes, coronary artery disease, history of stent in 2013, and coronary artery bypass graft in 01/2006 at [facility]. He also and he is on hemodialysis as of diabetic neuropathy. The patient was last evaluated at [facility] with chest pain. When I evaluate him in 06/2016, at that time, the patient underwent echocardiogram showed ejection fraction of 60% to 65% and underwent a nuclear stress test as well. His stress test of 06/17/2016 show no evidence of ischemia and was consistent with an infarct. At the time of my evaluation, the patient denies any chest pain or shortness of breath. PAST MEDICAL HISTORY: 1. Hypertension. 2. Coronary artery disease. 3. History of coronary artery bypass graft. 4. Diabetes. 5. Anemia. 6. End-stage renal disease. 7. History of blood transfusion. FAMILY HISTORY: Noncontributory. SOCIAL HISTORY: Does not smoke or drink alcohol. REVIEW OF SYSTEMS: Review of systems was performed and was negative other than what was mentioned in history of present illness. PHYSICAL EXAMINATION: VITAL SIGNS: Blood pressure is 122/50, pulse 90, respirations 20, and temperature 98.2 degrees. HEAD AND NECK: Showed no JVD. LUNGS: Clear. CARDIOVASCULAR: Shows a regular S1 and S2 with no gallop or murmur. Sternotomy is intact. ABDOMEN: Soft. EXTREMITIES: No pitting edema. LABORATORY DATA: Show white count of 6.4, hemoglobin 11.9, hematocrit of 36.1, and platelet of 256,000. Sodium was 140, potassium 6.9, BUN 39, creatinine 8.5, and glucose of 110. Troponin is negative x2. BNP is 6900. INR is 0.9. D-dimer is 2. ASSESSMENT AND PLAN: 1. Chest pain. The patient has history of coronary artery bypass graft. The patient was also ruled out for myocardial infarction. His EKG shows sinus tachycardia with anteroseptal infarct with no acute ischemic changes. We will reschedule the patient for nuclear stress test for further evaluation and management. We will repeat echocardiogram to make sure he has not developed a pericardial effusion as he is a dialysis patient. 2. Hypertension. Continue Coreg 25 mg b.i.d. and Norvasc 10 mg daily and Lopressor 50 mg b.i.d. and Cozaar 25 mg daily. 3. Hyperkalemia. The patient will be getting hemodialysis. 4. End-stage renal disease, on hemodialysis. 5. Anemia status post blood transfusion on previous admission. Thank you very much, Dr. Darden, for allowing me to participate in the care of this patient. Please do not hesitate to contact me for any questions regarding my evaluation. Carlos Springer M.D. DR: NUSRAT JOB#: [id number] CC:
[2016-11-17] VITALS: BP 100/69
[2016-11-17 04:00] VITALS: BP 117/79
[2016-11-17] MEDS: NovoLOG Insulin Flexpen SUBQ SCH ×4 (06:30→21:51)
[2016-11-17] MEDS: Heparin 5000 units/ml inj SUBQ SCH ×3 (06:53→21:52)
[2016-11-17 08:02] LABS: BASOPHILS % (AUTO) 1.2 % (0.0-2.0); EOSINOPHILS % (AUTO) 15.5 % (0.0-3.0); LYMPHOCYTES % (AUTO) 22.6 % (20.0-45.0); MEAN CORPUSCULAR HEMOGLOBIN 29.6 PG (27.0-31.0); MEAN CORPUSCULAR HGB CONC 31.6 G/DL (32.0-36.0); MEAN CORPUSCULAR VOLUME 94 FL (80-99); MEAN PLATELET VOLUME 5.8 FL (6.5-10.1); MONOCYTES % (AUTO) 5.2 % (1.0-10.0); NEUTROPHILS % (AUTO) 55.6 % (45.0-75.0); PLATELET COUNT 206 K/UL (150-450); RED BLOOD COUNT 3.88 M/UL (4.70-6.10); RED CELL DISTRIBUTION WIDTH 18.9 % (11.6-14.8)
[2016-11-17 08:25] LABS: CALCIUM 9.1 mg/dL (8.6-10.2); CREATININE 6.9 mg/dL (0.7-1.2); GLOMERULAR FILTRATION RATE 8.1 mL/min (>60); POTASSIUM 4.5 mEQ/L (3.4-4.9); TROPONIN I < 0.30 ng/mL (<=0.30)
[2016-11-17 08:41] VITALS: BP 140/70
[2016-11-17] MEDS: Vitamin D 1000 IU Tab ORAL SCH (08:57)
[2016-11-17] MEDS: Metoprolol 50mg tab ORAL SCH (08:58)
[2016-11-17] MEDS: Losartan 25mg tab ORAL SCH (08:58)
[2016-11-17] MEDS: Carvedilol 25mg Tab ORAL SCH ×2 (08:59→17:24)
[2016-11-17 11:46] VITALS: BP 133/47
--- NOTE | 2016-11-17 12:09 | General Progress Note ---
Assessment/Plan Status: stable Assessment/Plan status: ESRD with high K ACS ETOH abuse HTN Plan: last dialysed yesterday 11/16 Dialysis in am-11/18 Per cardiology Subjective ROS Limited/Unobtainable: No Constitutional: Reports: malaise Allergies: Coded Allergies: ASPIRIN (Verified Allergy, Unknown, 11/15/16) Objective Last 24 Hour Vital Signs Date Time Temp Pulse Resp B/P Pulse Ox O2 Delivery O2 Flow Rate FiO2 11/17/16 11:46 97.5 90 18 133/47 97 Room Air 11/17/16 09:07 94 19 95 Room Air 21 11/17/16 09:07 94 18 95 Room Air 21 11/17/16 08:59 90 140/70 11/17/16 08:58 140/70 11/17/16 08:58 90 140/70 11/17/16 08:58 90 140/70 11/17/16 08:41 97.7 90 18 140/70 97 Room Air 11/17/16 08:00 91 11/17/16 04:00 98.4 96 18 117/79 96 Room Air 11/17/16 04:00 92 11/17/16 00:00 98.4 92 18 100/69 95 Room Air 11/17/16 00:00 91 11/16/16 20:00 104 11/16/16 18:51 95 156/73 11/16/16 16:00 97.9 95 18 156/73 96 Room Air 11/16/16 16:00 97 11/16/16 13:01 97.2 98 18 123/50 96 Room Air 11/16/16 13:00 Room Air Intake and Output 11/16/16 11/17/16 19:00 07:00 Output Total 2300 ml Balance -2300 ml Output Hemodialysis UF 2300 ml Laboratory Tests 11/16/16 14:30: Sodium Level 140, Potassium Level 3.8, Chloride Level 92L, Carbon Dioxide Level 33H, Anion Gap 15, Blood Urea Nitrogen 19, Creatinine 5.2H, Estimat Glomerular Filtration Rate 11.2, Glucose Level 100, Calcium Level 8.4L 11/17/16 06:30: Sodium Level 141, Potassium Level 4.5, Chloride Level 93L, Carbon Dioxide Level 33H, Anion Gap 15, Blood Urea Nitrogen 27H, Creatinine 6.9H, Estimat Glomerular Filtration Rate 8.1, Glucose Level 93, Calcium Level 9.1, White Blood Count 5.0 , Red Blood Count 3.88L, Hemoglobin 11.5L, Hematocrit 36.4L, Mean Corpuscular Volume 94, Mean Corpuscular Hemoglobin 29.6, Mean Corpuscular Hemoglobin Concent 31.6L, Red Cell Distribution Width 18.9H, Platelet Count 206, Mean Platelet Volume 5.8L, Neutrophils (%) (Auto) 55.6, Lymphocytes (%) (Auto) 22.6, Monocytes (%) (Auto) 5.2, Eosinophils (%) (Auto) 15.5H, Basophils (%) (Auto) 1.2 , Troponin I < 0.30, Pro-B-Type Natriuretic Peptide 6860H Height (Feet): 5 Height (Inches): 7.00 Weight (Pounds): 200 General Appearance: no apparent distress Objective PE not changed GUNNER BARRERA Nov 17, 2016 12:09
[2016-11-17 12:34] LABS: BILIRUBIN,DIRECT 0.1 mg/dL (0.1-0.3); PHOSPHORUS 5.8 mg/dL (2.5-4.8); TOTAL PROTEIN 7.7 g/dL (6.6-8.7)
--- NOTE | 2016-11-17 12:51 | Cardiology Report ---
APPROVED REPORT EXAM: Two-dimensional and M-mode echocardiogram with Doppler and color Doppler. INDICATION Chest Pain M-Mode DIMENSIONS IVSd1.6 (0.7-1.1cm)Left Atrium (MM)4.5 (1.6-4.0cm) LVDd3.8 (3.5-5.6cm)Aortic Root3.5 (2.0-3.7cm) PWd1.0 (0.7-1.1cm)Aortic Cusp Exc.2.0 (1.5-2.0cm) LVDs2.0 (2.5-4.0cm) PWs2.2 cm Technically difficult study due to poor acoustic windows. Study quality precludes accurate assessment of regional wall motion. Normal left ventricular chamber size, systolic function and wall motion to extent visualized. Left ventricular ejection fraction estimated to be 50-55 %. Mild left ventricular hypertrophy. No evidence of pericardial effusion. All other cardiac chamber sizes are within normal limits. Mild focal aortic valve sclerosis with adequate cusp excursion. Mildly thickened mitral valve leaflets with normal excursion. Mild mitral annulus and aortic root calcification. Pulmonic valve not well visualized. Normal tricuspid valve structure. IVC dilated at 1.8 cm with physiologic collapse. A color flow and spectral Doppler study was performed and revealed: No aortic regurgitation. Trace mitral regurgitation. Mitral diastolic velocities suggest reduced left ventricular relaxation (Grade I). Trace tricuspid regurgitation. Tricuspid systolic velocities suggests peak right ventricular systolic pressure of 13 mmHg. No pulmonic regurgitation present.
--- NOTE | 2016-11-17 14:35 | Diagnostic Imaging Report ---
Indications: 66-year-old male inpatient presents with chest pain. Technique: The examination was supervised by Dr. Archer. Baseline electrocardiogram was recorded. Dobutamine was administered the patient intravenously per standard protocol for a duration of 12 minutes, exceeding target stress level. Continuous electrocardiography, heart rate, blood pressure monitoring performed. Immediate SPECT imaging of the left ventricular myocardium was performed in multiple planes with the patient in supine position, following intravenous administration of 8.5 mCi 99 M technetium-sestaMIBI. Cinegraphic images were generated for wall motion analysis. Left ventricular ejection fraction was calculated. Similar imaging was performed at rest immediately prior with intravenous administration of 8 mCi 99 M technetium-sestaMIBI. Findings: Comparison: None. Post stress and rest images demonstrate decreased perfusion throughout the septum, most prominent in its apical aspect, without significant improvement on rest images.. Cinegraphic images inadequately reconstructed--wall motion cannot be assessed Ejection fraction is estimated at 58%. The patient developed no acute complaints but ST segment elevation in lead V1 during dobutamine stress. Supervising facilities administrator's conclusions are that clinical response to exercise stress is nonischemic while electrocardiographic response is equivocal. IMPRESSION: No evidence of chemically induced left ventricular myocardial ischemia. Apparent fixed decreased perfusion throughout septum may represent septal thickening or prior infarct. LVEF within normal limits This partially correlates with supervising facilities administrator's conclusions.
--- NOTE | 2016-11-17 14:59 | Pulmonology Progress Note ---
Assessment/Plan Problems: (1) Pleural effusion (2) Acute coronary syndrome (3) End stage renal failure on dialysis (4) Diabetes mellitus (5) HTN (hypertension) Assessment/Plan HD by nephrology check echo keep teli as per cardio tolerating diet sliding scale Subjective Interval Events: no more chest pain, doing better Allergies: Coded Allergies: ASPIRIN (Verified Allergy, Unknown, 11/15/16) Objective Last 24 Hour Vital Signs Date Time Temp Pulse Resp B/P Pulse Ox O2 Delivery O2 Flow Rate FiO2 11/17/16 12:00 93 11/17/16 11:46 97.5 90 18 133/47 97 Room Air 11/17/16 09:07 94 19 95 Room Air 21 11/17/16 09:07 94 18 95 Room Air 21 11/17/16 08:59 90 140/70 11/17/16 08:58 140/70 11/17/16 08:58 90 140/70 11/17/16 08:58 90 140/70 11/17/16 08:41 97.7 90 18 140/70 97 Room Air 11/17/16 08:00 91 11/17/16 04:00 98.4 96 18 117/79 96 Room Air 11/17/16 04:00 92 11/17/16 00:00 98.4 92 18 100/69 95 Room Air 11/17/16 00:00 91 11/16/16 20:00 104 11/16/16 18:51 95 156/73 11/16/16 16:00 97.9 95 18 156/73 96 Room Air 11/16/16 16:00 97 Intake and Output 11/16/16 11/17/16 19:00 07:00 Output Total 2300 ml Balance -2300 ml Output Hemodialysis UF 2300 ml General Appearance: WD/WN HEENT: normocephalic, atraumatic Respiratory/Chest: chest wall non-tender, lungs clear, normal breath sounds Cardiovascular: normal peripheral pulses, normal rate Genitourinary: normal external genitalia Extremities: no cyanosis, no clubbing Skin: no rash Neurologic/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 normal Lymphatic: no neck adenopathy Laboratory Tests 11/17/16 06:30: White Blood Count 5.0, Red Blood Count 3.88L, Hemoglobin 11.5L, Hematocrit 36.4L , Mean Corpuscular Volume 94, Mean Corpuscular Hemoglobin 29.6, Mean Corpuscular Hemoglobin Concent 31.6L, Red Cell Distribution Width 18.9H, Platelet Count 206, Mean Platelet Volume 5.8L, Neutrophils (%) (Auto) 55.6, Lymphocytes (%) (Auto) 22.6, Monocytes (%) (Auto) 5.2, Eosinophils (%) (Auto) 15.5H, Basophils (%) (Auto) 1.2, Sodium Level 141, Potassium Level 4.5, Chloride Level 93L, Carbon Dioxide Level 33H, Anion Gap 15, Blood Urea Nitrogen 27H, Creatinine 6.9H, Estimat Glomerular Filtration Rate 8.1, Glucose Level 93, Uric Acid 5.0, Calcium Level 9.1, Phosphorus Level 5.8H, Total Bilirubin 0.5, Direct Bilirubin 0.1, Aspartate Amino Transf (AST/SGOT) 15, Alanine Aminotransferase (ALT/SGPT) 8, Alkaline Phosphatase 114, Troponin I < 0.30, Pro- B-Type Natriuretic Peptide 6860H, Total Protein 7.7, Albumin 4.1 Current Medications Medications (Trade) Dose Ordered Sig/Krissy Route PRN Reason Start Time Stop Time Status Last Admin Dose Admin Amlodipine Besylate (Norvasc) 10 mg DAILY ORAL 11/16/16 09:00 12/16/16 08:59 11/17/16 08:58 Atorvastatin Calcium (Lipitor) 40 mg BEDTIME ORAL 11/16/16 21:00 12/16/16 20:59 11/16/16 21:14 Carvedilol (Coreg) 25 mg DAILY ORAL 11/16/16 09:00 12/16/16 08:59 Clonazepam (KlonoPIN) 2 mg BEDTIME ORAL 11/18/16 21:00 11/25/16 20:59 Clopidogrel Bisulfate (Plavix) 75 mg DAILY ORAL 11/16/16 09:00 12/16/16 08:59 11/17/16 08:57 Dextrose (Dextrose 50%) STAT PRN IV Hypoglycemia 11/16/16 02:00 12/16/16 01:59 Heparin Sodium (Porcine) (Heparin 5000 units/ml) 5,000 units EVERY 8 HOURS SUBQ 11/16/16 06:00 12/16/16 05:59 11/17/16 14:22 Hydromorphone HCl (Dilaudid) 2 mg Q4H PRN IVP PAIN 4-10 11/16/16 12:00 11/23/16 11:59 11/17/16 13:00 Insulin Aspart (NovoLOG) BEFORE MEALS AND HS SUBQ 11/16/16 06:30 12/16/16 06:29 11/16/16 12:11 Losartan Potassium (Cozaar) 25 mg DAILY ORAL 11/16/16 09:00 12/16/16 08:59 11/17/16 08:58 Metoprolol Tartrate (Lopressor) 50 mg BID ORAL 11/16/16 09:00 12/16/16 08:59 11/16/16 18:51 Pantoprazole (Protonix) 40 mg EVERY 12 HOURS ORAL 11/16/16 09:00 12/16/16 08:59 11/17/16 08:58 Sevelamer Carbonate (Renvela) 2,400 mg THREE TIMES A DAY ORAL 11/16/16 09:00 12/16/16 08:59 11/17/16 13:00 Tiotropium Widen (Spiriva Inhaler) 1 puff DAILY INH 11/16/16 09:00 12/16/16 08:59 11/17/16 09:07 Vitamin D (Vitamin D) 1,000 intlu DAILY ORAL 11/17/16 09:00 12/17/16 08:59 11/17/16 08:57 JUAN SPENCE Nov 17, 2016 14:59
--- NOTE | 2016-11-17 15:38 | Cardiac Electrophysiology PN ---
Assessment/Plan Status Narrative No evidence of chemically induced left ventricular myocardial ischemia. Apparent fixed decreased perfusion throughout septum may represent septal thickening or prior infarct. LVEF within normal limits This partially correlates with supervising data acquisition technician's conclusions. Assessment/Plan 1. Chest pain in a patient with Hx of coronary artery bypass graft. The patient was also ruled out for myocardial infarction. His EKG shows sinus tachycardia with anteroseptal infarct with no acute ischemic changes. Nuclear stress test was done today and showed no ischemia.Echo EF 55%. 2. Hypertension. Continue Coreg 25 mg b.i.d. ,Norvasc 10 mg daily and Cozaar 25 mg daily. DC Lopressor 3. Hyperkalemia. S/P hemodialysis. 4. End-stage renal disease, on hemodialysis. 5. Anemia status post blood transfusion on previous admission. 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 Had nuclear stress test today. Objective Last 24 Hour Vital Signs Date Time Temp Pulse Resp B/P Pulse Ox O2 Delivery O2 Flow Rate FiO2 11/17/16 12:00 93 11/17/16 11:46 97.5 90 18 133/47 97 Room Air 11/17/16 09:07 94 19 95 Room Air 21 11/17/16 09:07 94 18 95 Room Air 21 11/17/16 08:59 90 140/70 11/17/16 08:58 140/70 11/17/16 08:58 90 140/70 11/17/16 08:58 90 140/70 11/17/16 08:41 97.7 90 18 140/70 97 Room Air 11/17/16 08:00 91 11/17/16 04:00 98.4 96 18 117/79 96 Room Air 11/17/16 04:00 92 11/17/16 00:00 98.4 92 18 100/69 95 Room Air 11/17/16 00:00 91 11/16/16 20:00 104 11/16/16 18:51 95 156/73 11/16/16 16:00 97.9 95 18 156/73 96 Room Air 11/16/16 16:00 97 Intake and Output 11/16/16 11/17/16 19:00 07:00 Output Total 2300 ml Balance -2300 ml Output Hemodialysis UF 2300 ml Laboratory Tests Test 11/17/16 06:30 White Blood Count 5.0 K/UL (4.8-10.8) Red Blood Count 3.88 M/UL (4.70-6.10) L Hemoglobin 11.5 G/DL (14.2-18.0) L Hematocrit 36.4 % (42.0-52.0) L Mean Corpuscular Volume 94 FL (80-99) Mean Corpuscular Hemoglobin 29.6 PG (27.0-31.0) Mean Corpuscular Hemoglobin Concent 31.6 G/DL (32.0-36.0) L Red Cell Distribution Width 18.9 % (11.6-14.8) H Platelet Count 206 K/UL (150-450) Mean Platelet Volume 5.8 FL (6.5-10.1) L Neutrophils (%) (Auto) 55.6 % (45.0-75.0) Lymphocytes (%) (Auto) 22.6 % (20.0-45.0) Monocytes (%) (Auto) 5.2 % (1.0-10.0) Eosinophils (%) (Auto) 15.5 % (0.0-3.0) H Basophils (%) (Auto) 1.2 % (0.0-2.0) Sodium Level 141 mEQ/L (135-145) Potassium Level 4.5 mEQ/L (3.4-4.9) Chloride Level 93 mEQ/L (98-107) L Carbon Dioxide Level 33 mEQ/L (20-30) H Anion Gap 15 (5-15) Blood Urea Nitrogen 27 mg/dL (7-23) H Creatinine 6.9 mg/dL (0.7-1.2) H Estimat Glomerular Filtration Rate 8.1 mL/min (>60) Glucose Level 93 mg/dL (74-106) Uric Acid 5.0 mg/dL (3.0-7.5) Calcium Level 9.1 mg/dL (8.6-10.2) Phosphorus Level 5.8 mg/dL (2.5-4.8) H Total Bilirubin 0.5 mg/dL (0.0-1.2) Direct Bilirubin 0.1 mg/dL (0.1-0.3) Aspartate Amino Transf (AST/SGOT) 15 U/L (5-40) Alanine Aminotransferase (ALT/SGPT) 8 U/L (3-41) Alkaline Phosphatase 114 U/L (40-129) Troponin I < 0.30 ng/mL (<=0.30) Pro-B-Type Natriuretic Peptide 6860 pg/mL (0-125) H Total Protein 7.7 g/dL (6.6-8.7) Albumin 4.1 g/dL (3.5-5.2) Objective HEAD AND NECK: Showed no JVD. LUNGS: Clear. CARDIOVASCULAR: Shows a regular S1 and S2 with no gallop or murmur. Sternotomy is intact. ABDOMEN: Soft. EXTREMITIES: No pitting edema. LUISA JHAVERI Nov 17, 2016 15:38
[2016-11-17 16:00] VITALS: BP 114/66
--- NOTE | 2016-11-17 16:45 | Internal Med Progress Note ---
Subjective Date of Service: Nov 17, 2016 Physician Name Dima Roberson Attending Physician Baldev Darden MD Current Medications Medications (Trade) Dose Ordered Sig/Krissy Route PRN Reason Start Time Stop Time Status Last Admin Dose Admin Amlodipine Besylate (Norvasc) 10 mg DAILY ORAL 11/16/16 09:00 12/16/16 08:59 11/17/16 08:58 Atorvastatin Calcium (Lipitor) 40 mg BEDTIME ORAL 11/16/16 21:00 12/16/16 20:59 11/16/16 21:14 Carvedilol (Coreg) 25 mg BID ORAL 11/17/16 18:00 12/17/16 17:59 Clonazepam (KlonoPIN) 2 mg BEDTIME ORAL 11/18/16 21:00 11/25/16 20:59 Clopidogrel Bisulfate (Plavix) 75 mg DAILY ORAL 11/16/16 09:00 12/16/16 08:59 11/17/16 08:57 Dextrose (Dextrose 50%) STAT PRN IV Hypoglycemia 11/16/16 02:00 12/16/16 01:59 Heparin Sodium (Porcine) (Heparin 5000 units/ml) 5,000 units EVERY 8 HOURS SUBQ 11/16/16 06:00 12/16/16 05:59 11/17/16 14:22 Hydromorphone HCl (Dilaudid) 2 mg Q4H PRN IVP PAIN 4-10 11/16/16 12:00 11/23/16 11:59 11/17/16 13:00 Insulin Aspart (NovoLOG) BEFORE MEALS AND HS SUBQ 11/16/16 06:30 12/16/16 06:29 11/16/16 12:11 Losartan Potassium (Cozaar) 25 mg DAILY ORAL 11/16/16 09:00 12/16/16 08:59 11/17/16 08:58 Pantoprazole (Protonix) 40 mg EVERY 12 HOURS ORAL 11/16/16 09:00 12/16/16 08:59 11/17/16 08:58 Sevelamer Carbonate (Renvela) 2,400 mg THREE TIMES A DAY ORAL 11/16/16 09:00 12/16/16 08:59 11/17/16 13:00 Tiotropium [place] (Spiriva Inhaler) 1 puff DAILY INH 11/16/16 09:00 12/16/16 08:59 11/17/16 09:07 Vitamin D (Vitamin D) 1,000 intlu DAILY ORAL 11/17/16 09:00 12/17/16 08:59 11/17/16 08:57 Allergies: Coded Allergies: ASPIRIN (Verified Allergy, Unknown, 11/15/16) ROS Limited/Unobtainable: No Constitutional: Reports: no symptoms HEENT: Reports: no symptoms Cardiovascular: Reports: no symptoms Respiratory: Reports: no symptoms Gastrointestinal/Abdominal: Reports: no symptoms Genitourinary: Reports: no symptoms Neurologic/Psychiatric: Reports: no symptoms Subjective 66 YO M with history of diabetes and end stage renal disease admitted with chest pain. Cover for Int Med - Dr Darden Objective Last Vital Signs Date Time Temp Pulse Resp B/P Pulse Ox O2 Delivery O2 Flow Rate FiO2 11/17/16 16:00 97.0 91 18 114/66 95 Room Air 11/17/16 09:07 21 General Appearance: WD/WN, no apparent distress, alert EENT: PERRL/EOMI, normal ENT inspection Neck: non-tender, normal alignment, supple, normal inspection Cardiovascular: normal peripheral pulses, normal rate, regular rhythm, no gallop/murmur, no JVD Respiratory/Chest: chest wall non-tender, lungs clear, normal breath sounds, no respiratory distress, no accessory muscle use Abdomen: normal bowel sounds, non tender, soft, no organomegaly, no mass Extremities: normal range of motion Neurologic: cube cutter II-XII grossly normal, no motor/sensory deficits Skin: normal pigmentation, warm/dry Laboratory Tests Test 11/17/16 06:30 White Blood Count 5.0 K/UL (4.8-10.8) Red Blood Count 3.88 M/UL (4.70-6.10) L Hemoglobin 11.5 G/DL (14.2-18.0) L Hematocrit 36.4 % (42.0-52.0) L Mean Corpuscular Volume 94 FL (80-99) Mean Corpuscular Hemoglobin 29.6 PG (27.0-31.0) Mean Corpuscular Hemoglobin Concent 31.6 G/DL (32.0-36.0) L Red Cell Distribution Width 18.9 % (11.6-14.8) H Platelet Count 206 K/UL (150-450) Mean Platelet Volume 5.8 FL (6.5-10.1) L Neutrophils (%) (Auto) 55.6 % (45.0-75.0) Lymphocytes (%) (Auto) 22.6 % (20.0-45.0) Monocytes (%) (Auto) 5.2 % (1.0-10.0) Eosinophils (%) (Auto) 15.5 % (0.0-3.0) H Basophils (%) (Auto) 1.2 % (0.0-2.0) Sodium Level 141 mEQ/L (135-145) Potassium Level 4.5 mEQ/L (3.4-4.9) Chloride Level 93 mEQ/L (98-107) L Carbon Dioxide Level 33 mEQ/L (20-30) H Anion Gap 15 (5-15) Blood Urea Nitrogen 27 mg/dL (7-23) H Creatinine 6.9 mg/dL (0.7-1.2) H Estimat Glomerular Filtration Rate 8.1 mL/min (>60) Glucose Level 93 mg/dL (74-106) Uric Acid 5.0 mg/dL (3.0-7.5) Calcium Level 9.1 mg/dL (8.6-10.2) Phosphorus Level 5.8 mg/dL (2.5-4.8) H Total Bilirubin 0.5 mg/dL (0.0-1.2) Direct Bilirubin 0.1 mg/dL (0.1-0.3) Aspartate Amino Transf (AST/SGOT) 15 U/L (5-40) Alanine Aminotransferase (ALT/SGPT) 8 U/L (3-41) Alkaline Phosphatase 114 U/L (40-129) Troponin I < 0.30 ng/mL (<=0.30) Pro-B-Type Natriuretic Peptide 6860 pg/mL (0-125) H Total Protein 7.7 g/dL (6.6-8.7) Albumin 4.1 g/dL (3.5-5.2) Intake and Output 11/16/16 11/17/16 19:00 07:00 Output Total 2300 ml Balance -2300 ml Output Hemodialysis UF 2300 ml Assessment/Plan Problem List: (1) CAD (coronary artery disease) (2) CHF (congestive heart failure), NYHA class II (3) Diabetes mellitus Assessment & Plan: Cont novolog sliding scale. (4) End stage renal failure on dialysis (5) HTN (hypertension) Assessment & Plan: Cont norvasc and coreg. (6) Diabetic peripheral neuropathy (7) PVD (peripheral vascular disease) (8) Chest pain Assessment & Plan: See cardiology note. Await NM myocard perf test result. Status: progressing DIMA ROBERSON Nov 17, 2016 16:45
[2016-11-17 20:00] VITALS: BP 111/62
[2016-11-18] VITALS: BP 102/57
[2016-11-18 04:00] VITALS: BP 114/63
[2016-11-18] MEDS: NovoLOG Insulin Flexpen SUBQ SCH (06:37)
[2016-11-18] MEDS: Heparin 5000 units/ml inj SUBQ SCH (06:38)
[2016-11-18 07:56] LABS: BASOPHILS % (AUTO) 0.7 % (0.0-2.0); EOSINOPHILS % (AUTO) 11.6 % (0.0-3.0); LYMPHOCYTES % (AUTO) 23.2 % (20.0-45.0); MEAN CORPUSCULAR HEMOGLOBIN 29.4 PG (27.0-31.0); MEAN CORPUSCULAR VOLUME 92 FL (80-99); MEAN PLATELET VOLUME 5.8 FL (6.5-10.1); MONOCYTES % (AUTO) 2.8 % (1.0-10.0); NEUTROPHILS % (AUTO) 61.7 % (45.0-75.0); PLATELET COUNT 199 K/UL (150-450); RED BLOOD COUNT 3.62 M/UL (4.70-6.10); RED CELL DISTRIBUTION WIDTH 18.2 % (11.6-14.8); WHITE BLOOD COUNT 4.1 K/UL (4.8-10.8)
[2016-11-18 08:09] LABS: CALCIUM 8.5 mg/dL (8.6-10.2); CREATININE 6.2 mg/dL (0.7-1.2); GLOMERULAR FILTRATION RATE 9.1 mL/min (>60); POTASSIUM 3.5 mEQ/L (3.4-4.9)
[2016-11-18 08:20] VITALS: BP 133/77
[2016-11-18] MEDS: Vitamin D 1000 IU Tab ORAL SCH (08:35)
[2016-11-18] MEDS: Losartan 25mg tab ORAL SCH (09:00)
[2016-11-18] MEDS: Carvedilol 25mg Tab ORAL SCH (09:00)
[2016-11-18] MEDS ORDERED: DOBUTamine 250mg/250ml Premix IV ONE (11:01)
--- NOTE | 2016-11-18 11:16 | Discharge Summary ---
Discharge Summary Hospital Course Date of Admission Nov 15, 2016 at 22:15 Date of Discharge Admitting Diagnosis ACS HPI Forrest Hubbard is a 66 year old male who was admitted on Nov 15, 2016 at 22:15 for Acute Coronary Syndrome Hospital Course Dictated for Int Med-Dr Darden no. [id number]. Discharge Discharge Disposition Patient was discharged to Discharge Diagnoses: VINCENT ROBERSON Nov 18, 2016 11:16
[2016-11-18 11:23] VITALS: BP 115/66
--- NOTE | 2016-11-18 12:39 | General Progress Note ---
Assessment/Plan Status: doing well Status Narrative On HD now tolerating well. Assessment/Plan status: ESRD with high K ACS ETOH abuse HTN Plan: last dialysed yesterday 11/16 Dialysis in am- 11/18 in process Per cardiology Subjective ROS Limited/Unobtainable: No Constitutional: Reports: malaise Allergies: Coded Allergies: ASPIRIN (Verified Allergy, Unknown, 11/15/16) Objective Last 24 Hour Vital Signs Date Time Temp Pulse Resp B/P Pulse Ox O2 Delivery O2 Flow Rate FiO2 11/18/16 11:23 98.1 98 18 115/66 96 Room Air 11/18/16 09:11 97.9 11/18/16 09:00 99 100/75 11/18/16 09:00 100/75 11/18/16 09:00 99 100/75 11/18/16 08:35 Room Air 21 11/18/16 08:31 99 16 98 Room Air 21 11/18/16 08:30 99 18 98 Room Air 21 11/18/16 08:20 97.9 97 18 133/77 100 Room Air 11/18/16 08:00 93 11/18/16 04:30 Room Air 11/18/16 04:00 93 11/18/16 04:00 98.2 86 20 114/63 92 Room Air 11/18/16 00:00 88 11/18/16 00:00 98.4 86 20 102/57 96 Room Air 11/17/16 20:00 91 11/17/16 20:00 97.2 80 16 111/62 94 Room Air 11/17/16 17:24 91 114/66 11/17/16 16:00 97.0 91 18 114/66 95 Room Air 11/17/16 16:00 91 Intake and Output 11/17/16 11/18/16 19:00 07:00 Intake Total 120 ml 180 ml Balance 120 ml 180 ml Intake Oral 120 ml 180 ml # Voids 1 Laboratory Tests 11/18/16 06:15: White Blood Count 4.1L, Red Blood Count 3.62L, Hemoglobin 10.6L, Hematocrit 33.3L, Mean Corpuscular Volume 92, Mean Corpuscular Hemoglobin 29.4, Mean Corpuscular Hemoglobin Concent 32.0, Red Cell Distribution Width 18.2H, Platelet Count 199, Mean Platelet Volume 5.8L, Neutrophils (%) (Auto) 61.7, Lymphocytes (%) (Auto) 23.2, Monocytes (%) (Auto) 2.8, Eosinophils (%) (Auto) 11.6H, Basophils (%) (Auto) 0.7, Sodium Level 138, Potassium Level 3.5, Chloride Level 91L, Carbon Dioxide Level 32H, Anion Gap 15, Blood Urea Nitrogen 29H, Creatinine 6.2H, Estimat Glomerular Filtration Rate 9.1, Glucose Level 116H , Calcium Level 8.5L, Pro-B-Type Natriuretic Peptide 6299H Height (Feet): 5 Height (Inches): 7.00 Weight (Pounds): 200 General Appearance: no apparent distress Objective PE not changed GUNNER BARRERA Nov 18, 2016 12:39
--- NOTE | 2016-11-18 22:29 | Discharge Summary ---
DATE OF ADMISSION: 11/15/2016 DATE OF DISCHARGE: 11/18/2016 ADMITTING DIAGNOSES: 1. Chest pain. 2. Coronary artery disease. 3. Congestive heart failure. 4. Diabetes type 2. 5. Uncontrolled hypertension. 6. End-stage renal disease. 7. Diabetic nephropathy. 8. Diabetic peripheral neuropathy. 9. Diabetic peripheral vascular disease. DISCHARGE DIAGNOSES: 1. Chest pain. 2. Coronary artery disease. 3. Congestive heart failure. 4. Diabetes type 2. 5. Hypertension, uncontrolled. 6. End-stage renal disease. 7. Diabetic nephropathy. 8. Diabetic peripheral neuropathy. 9. Diabetic peripheral vascular disease. HOSPITAL COURSE BY PROBLEM LIST: 1. Chest pain. A Cardiology consultation was obtained with Dr. Carlos Springer. The patient underwent an echocardiogram on 11/16/2016. Echocardiogram revealed a normal ejection fraction of 50% to 55%. The patient underwent a nuclear medicine myocardial perfusion scan on 11/17/2016. This was reported as negative for ischemia. The patient is to follow up with Dr. Carlos Springer in one week. Chest pain is thought to be not due to coronary etiology. 2. Coronary artery disease/congestive heart failure. The patient had an initial BNP elevated. This is thought to be secondary to volume overload. The patient underwent dialysis under the care of Dr. Flores. The patient is to follow up with Dr. Vieira as an outpatient. The patient currently undergoes dialysis every Wednesday, , and Wednesday. 3. Diabetes type 2. The patient remained on a NovoLog sliding scale during the hospitalization. The patient is to continue this as an outpatient. 4. Uncontrolled hypertension. The patient remained on Cozaar 25 mg one tablet p.o. daily and Norvasc 10 mg one tablet p.o. daily. The patient also was placed on Coreg 25 mg one tablet p.o. twice daily. Blood pressure was well controlled during the hospitalization. The patient is to follow up with Dr. Carlos Springer in one week. 5. End-stage renal disease, as above. A Nephrology consultation was obtained with Dr. Flores. The patient underwent dialysis during the hospitalization. The patient is to follow up with his primary smearer, Dr. Vieira as an outpatient. 6. Diabetic nephropathy. 7. Diabetic peripheral neuropathy. 8. Diabetic peripheral vascular disease. DISCHARGE MEDICATIONS: Please refer to discharge medication list. DISCHARGE INSTRUCTIONS: The patient is discharged home today 11/18/2016. Dima Marie M.D. DR: [email or web address] JOB#: [id number] CC:
[2016-11-26] MEDS ORDERED: OXYCODONE HCL15 M1 ORAL (16:29)
[2016-11-26] MEDS ORDERED: NOVOLIN R100 UNIT/1 SUBQ (16:30)
== END 2016-11-18 13:04 | disposition home or self-care (01) | DRG 640 ==
LOC: EDUNIT# 20:04 → EDBD 20:04 → EMR 20:39 → 2E 22:15 → EDBEDREQ 22:58 → EMR 23:30
PROC: 5A1D60Z (ICD-10-PCS; principal; 2016-11-16)
DX: E87.70 Fluid overload, unspecified (principal); N18.6 End stage renal disease; J90 Pleural effusion, not elsewhere classified; E11.21 Type 2 diabetes mellitus with diabetic nephropathy; I12.0 Hypertensive chronic kidney disease with stage 5 chronic kidney disease or end stage renal disease; R07.89 Other chest pain; Z99.2 Dependence on renal dialysis; I25.10 Atherosclerotic heart disease of native coronary artery without angina pectoris; Z95.1 Presence of aortocoronary bypass graft; E11.42 Type 2 diabetes mellitus with diabetic polyneuropathy; I73.9 Peripheral vascular disease, unspecified; I50.9 Heart failure, unspecified; Z95.5 Presence of coronary angioplasty implant and graft; Z88.6 Allergy status to analgesic agent
CPT/HCPCS: 36415; 71010; 78452; 80048; 80053; 80076; 80329; 82550; 82962; 83735; 83880; 84100; 84484; 84550; 85025; 85610; 85730; 87081; 93005; 93017; 93306; 94640; J1815

== ENCOUNTER → 2016-11-27 | Day surgery (SDC) | payer MEDICARE, OTHER ==
--- NOTE | 2016-11-25 16:33 | Pre-Procedure Note/Attestation ---
Pre-Procedure Note/Attestation Complete Prior to Procedure Planned Procedure: right Procedure Narrative: phaco with IOL Indications for Procedure Pre-Operative Diagnosis: cataract Attestation I attest that I discussed the nature of the procedure; its benefits; risks and complications; and alternatives (and the risks and benefits of such alternatives ), prior to the procedure, with the patient (or the patient's legal field service representative). I attest that, if there was a reasonable possibility of needing a blood transfusion, the patient (or the patient's legal field service representative) was given the [facility] standardized written summary, pursuant to the [place] Blood Safety Act ([place] Health and Safety Code # 1645, as amended). I attest that I re-evaluated the patient just prior to the surgery and that there has been no change in the patient's H&P, except as documented below: JENSEN ACNO Nov 25, 2016 16:33
--- NOTE | 2016-11-25 16:34 | Opthalmology H&P ---
Ophthalmology H&P H&P Chief Complaint: decreased vision in right eye HPI Vision Affects Ability to: read, focus/use eyes together, manage personal affairs HPI Narrative blurry vision Exam Visual Acuity: OD: cf OS: 20/160 Tension: OD: 18 OS; 18 Eye Exam: normal OU: anterior chambers, corneas, external exam, levator function, marginal reflex distance, palpebral fissure-width, findings: fundus exam - OU: PDR, lens - OD; ns OS: ns Attestation Attestation The risks and benefits of the surgery as well as alternative procedures were explained to the patient in detail. JENSEN CANO Nov 25, 2016 16:34
[~2016-11-27] VITALS: Ht 170.2 cm; Wt 88.9 kg
[2016-11-27] VITALS (9 sets, daily range): BP systolic 119–162; BP diastolic 72–88
[~2016-11-27] MED LIST changes: +Akten 3.5% 1ml Btl RIGHT EYE ONE; +Alfentanil 2ml Inj ONE; +Atropine Inj 1mg/10ml Syr IV PRN; +BSS 15ml BTL ONE; +BSS 500ml btl ONE; +Bupivacaine 0.75% 30ml vial INJ ONE; +Carbachol 0.01% Op Soln 1.5ml vial ONE; +Dexamethasone 4mg/ml vial ONE; +DiphenhydrAMINE 50mg/ml Inj IVP PRN; +EPINEPHrine 1mg/1ml Amp ONE; +Hydromorphone 0.5mg/0.5ml inj IVP PRN; +Ketorolac 30mg Inj IV PRN; +Ketorolac 60mg Inj IV PRN; +LIPITOR80 MG ORAL; +LORazepam Inj 2mg/ml 1ml IV PRN; +LR 1000ml 1,000 ML IVLG SCH; +Labetalol 5mg/ml 20ml vial IV PRN; +Lidocaine 1% MPF 10mg/ml 5ml ONE; +Lidocaine 2% MPF 5ml Vial INJ ONE; +Lidocaine 4% Amp ONE; +Maxitrol Opth Oint 3.5gm ONE; +Meperidine 25mg/ml Inj IV PRN; +Metoclopramide 10mg/2ml Inj IVP PRN; +Midazolam 2mg/2ml Inj IVP PRN; +Midazolam 2mg/2ml Inj ONE; +NOVOLIN R100 UNIT/1 SUBQ; +NS Irrig 1000ml ONE; +Norco 5mg/325mg tab ORAL PRN; +Norco 7.5mg/325mg tab ORAL PRN; +OXYCODONE HCL15 M1 ORAL; +Oxycodone/Acetaminophen 5-325 ORAL PRN; +Pilocarpine 2% Opth Soln ONE; +Povidone-Iodine 5% opth solution ONE; +Pred Forte 1% Opth Susp 1ml ONE; +Propofol 10mg/ml 20ml IV ONE; +Sodium Hyaluronate 14 mg/ml 0.85ml ONE; +Sterile Water Irrig 1000ml IRRIG ONE; +Tobramycin Op Soln 0.3% ONE; +VITAMIN D400 UNI2 PO; +acetaZOLAMIDE 125mg tab ONE; +fentaNYL 100 mcg/2 mL IV PRN
[2016-11-27] MEDS: Cyclopentolate 1% Opth Sol RIGHT EYE SCH ×3 (06:34→06:56)
[2016-11-27] MEDS: Tropicamide 1% Opth Soln RIGHT EYE SCH ×3 (06:34→06:56)
[2016-11-27] MEDS: Phenylephrine 10% Opth Soln 5ml RIGHT EYE SCH ×3 (06:35→06:56)
--- NOTE | 2016-11-27 07:54 | Anethesia Preoperative Eval ---
Anesthesia Pre-op PMH/ROS General Date of Evaluation: Nov 27, 2016 Time of Evaluation: 07:41 Anesthesiologist: Larissa ASA Score: ASA 3 Mallampati Score Class I : Soft palate, uvula, fauces, pillars visible Class II: Soft palate, uvula, fauces visible Class III: Soft palate, base of uvula visible Class IV: Only hard plate visible Mallampati Classification: Class III Surgeon: Denisse Diagnosis: Cat OS Surgical Procedure: Cat Ext IOL OS Anesthesia History: none Family History: no anesthesia problems Allergies: Coded Allergies: ASPIRIN (Verified Allergy, Unknown, 11/15/16) Medications: see eMAR Past Medical History Cardiovascular: Reports: CAD, HTN, GA, other - HL, PVD, CHF Pulmonary: Reports: COPD Gastrointestinal/Genitourinary: Reports: ESRD - Dialysis, GERD Neurologic/Psychiatric: Reports: depression/anxiety Endocrine: Reports: DM HEENT: Reports: cataract (L), cataract (R) Hematology/Immune: Reports: anemia Other: obesity - BMI 30 PSxH Narrative: CABG, AV Shunt, Toes Amp Anesthesia Pre-op Phys. Exam Physician Exam Last Vital Signs Date Time Temp Pulse Resp B/P Pulse Ox O2 Delivery O2 Flow Rate FiO2 11/27/16 06:41 97.9 83 20 119/72 98 Room Air Constitutional: NAD Neurologic: CN 2-12 intact Cardiovascular: RRR Respiratory: CTA Gastrointestinal: S/NT/ND Airway Exam Mallampati Score: Class III MO: limited ROM: limited Teeth: missing, intact Anesthesia Pre-op A/P Labs Chemistry Test 11/27/16 06:50 Potassium Level 5.0 mEQ/L (3.4-4.9) H Risk Assessment & Plan Assessment: ASA 3 Plan: GA Status Change Before Surgery: No Nilesh Dias MD Nov 27, 2016 07:54
--- NOTE | 2016-11-27 08:13 | Immediate Post-Op Evaluation ---
Immediate Post-Op Evalulation Immediate Post-Op Evalulation Procedure: Cat Ext IOL OD Date of Evaluation: Nov 27, 2016 Time of Evaluation: 09:03 IV Fluids: 200 NS Blood Products: 0 Estimated Blood Loss: 1 Urinary Output: 0 Blood Pressure Systolic: 143 Blood Pressure Diastolic: 78 Pulse Rate: 86 Respiratory Rate: 16 O2 Sat by Pulse Oximetry: 100 Temperature (Fahrenheit): 97.4 Pain Score (1-10): 1 Nausea: No Vomiting: No Complications 0 Patient Status: awake, reacts, patent, extubated, none Hydration Status: adequate Nilesh Dias MD Nov 27, 2016 08:13
--- NOTE | 2016-11-27 08:16 | 48 Hour Post Anesthesia Eval ---
Post Anesthesia Evaluation Procedure: Cat Ext IOL OD Date of Evaluation: Nov 27, 2016 Time of Evaluation: 11:06 Blood Pressure Systolic: 161 0: 87 Pulse Rate: 89 Respiratory Rate: 18 Temperature (Fahrenheit): 98.2 O2 Sat by Pulse Oximetry: 97 Airway: patent Nausea: No Pain Intensity: 1 Hydration Status: adequate Cardiopulmonary Status: Stable Mental Status/LOC: patient returned to baseline Follow-up Care/Observations: 0 Post-Anesthesia Complications: 0 Follow-up care needed: ready to discharge Nilesh Dias MD Nov 27, 2016 08:16
--- NOTE | 2016-11-28 10:12 | Brief Operative Note ---
Immediate Post Operative Note Operative Note Chief Complaint: blurry vision Pre-op Diagnosis: cataract Procedure: phaco with IOL Post-op Diagnosis: pseudophakia Post-op Diagnosis: same as pre-op Findings: consistent w/pre-op dx studies Surgeon: Denisse Anesthesiologist: Goyo Anesthesia: MAC Specimen: none Complications: none Estimated Blood Loss: none Drains: none Implant(s) used?: Yes JENSEN CANO Nov 28, 2016 10:12
--- NOTE | 2016-11-28 10:13 | Operative Note - PDOC ---
Operative Note Operative Note Date of Operation/Procedure: Nov 27, 2016 Chief Complaint: blurry vision Pre-op Diagnosis: cataract Procedure: phaco with IOL Post-op Diagnosis: pseudophakia Post-op Diagnosis: same as pre-op Operative Findings: consistent w/pre-op dx studies Surgeon: Denisse Anesthesiologist: Goyo Anesthesia: MAC Specimen: none Complications: none Estimated Blood Loss: none Drains: none Implant(s) used?: Yes Indications for Procedure cataract Description of Procedure This patient has been complaining visually significant cataract in the affected eye with the best corrected visual acuity under moderate glare conditions worse. The patient complains of difficulties with glare in performing activities of daily living and wants to manage personal affairs with comfort and accuracy and see well enough to move with safety at home and outdoors. ~~~ The risks, benefits and alternatives of the procedure were discussed with the patient in the office prior to scheduling surgery. All questions from the patient were answered after the surgical procedure was explained in detail. The risks of the procedure as explained to the patient include, but are not limited to, pain, infection, bleeding, loss of vision, retinal detachment, need for further surgery, loss of lens nucleus, double vision, etc. Alternative procedures were discussed which include, to do nothing or seek a second opinion. Informed consent for this procedure was obtained from the patient. The patient was referred to a primary care physician for a cardiopulmonary clearance prior to surgery, after proper evaluation was done patient was properly scheduled for outpatient surgery. The patient was brought to the operating room where the anesthesiologist established I.V. lines and cardiac monitoring leads. Mild intravenous sedation was administered.~~ The patient was then prepared with a 5% solution of povidone -iodine to the conjunctival fornix and lashes, and a 10% solution of povidone- iodine to the lids and periorbital skin. The patient was then draped in the usual sterile fashion. A lid speculum was then placed in the operative eye. A keratome blade was then used to create a biplanar incision into the anterior chamber. Viscoelastics was then instilled into the anterior chamber. A capsulorrhexis was then fashioned with an utrata forceps. BSS and a cannula were then used to hydrodissect and hydro delineate the lens. Paracentesis incision was made at 3 o'clock with sharp blade. The phacoemulsification unit, after being properly adjusted~ and tested, was then used to emulsify the nucleus. Residual cortical material was aspirated with the irrigation and aspiration unit. Healon was then instilled into the anterior chamber. The corneal wound was then enlarged to the size of the optic with the willard keratome blade. The intraocular lens was then inspected for right~ power and size~ and thought to be satisfactory. Then the lens was gently placed in the capsular bag. Positioning within the capsular bag was confirmed by direct visualization. Optic centration was accomplished with a Sinskey hook. Viscoelastics~ was removed from the anterior chamber using the irrigation and aspiration unit. The corneal wound was then tested for leaks and none were found. The lid speculum were then removed. Sponge and needle counts were correct. An eye patch and shield were placed over the operative eye. The patient was taken to the recovery room in stable condition. There were no complications. The patient tolerated the procedure well. The patient was then transferred to the ambulatory surgery unit in stable and satisfactory condition , was given detailed written instructions and asked to follow up~ in the office the next day. ~ JENSEN CANO Nov 28, 2016 10:13
== END | disposition home or self-care (01) ==
LOC: SUR 05:44
DX: H26.9 Unspecified cataract (principal); I12.0 Hypertensive chronic kidney disease with stage 5 chronic kidney disease or end stage renal disease; E11.22 Type 2 diabetes mellitus with diabetic chronic kidney disease; N18.6 End stage renal disease; E78.5 Hyperlipidemia, unspecified; I50.9 Heart failure, unspecified; I25.10 Atherosclerotic heart disease of native coronary artery without angina pectoris; I25.2 Old myocardial infarction; I73.9 Peripheral vascular disease, unspecified; K21.9 Gastro-esophageal reflux disease without esophagitis; F32.9 Major depressive disorder, single episode, unspecified; F41.9 Anxiety disorder, unspecified; D64.9 Anemia, unspecified; Z95.1 Presence of aortocoronary bypass graft; E66.9 Obesity, unspecified; Z68.37 Body mass index [BMI] 37.0-37.9, adult; Z88.6 Allergy status to analgesic agent; Z89.429 Acquired absence of other toe(s), unspecified side
CPT/HCPCS: 36415; 66984; 82962; 84132; J0171; J1100; J1170; J2250; J2704; J3370; J3490; V2632; 94003; 94150

== ENCOUNTER 2017-05-11 23:18 | Inpatient (IN) | payer MEDICARE, OTHER ==
[~2017-05-11] VITALS: Ht 170.2 cm; Wt 93.4 kg
[~2017-05-11 23:18] MED LIST changes: -Akten 3.5% 1ml Btl RIGHT EYE ONE; -Alfentanil 2ml Inj ONE; -Atropine Inj 1mg/10ml Syr IV PRN; -BSS 15ml BTL ONE; -BSS 500ml btl ONE; -Bupivacaine 0.75% 30ml vial INJ ONE; -Carbachol 0.01% Op Soln 1.5ml vial ONE; -Dexamethasone 4mg/ml vial ONE; -DiphenhydrAMINE 50mg/ml Inj IVP PRN; -EPINEPHrine 1mg/1ml Amp ONE; -Hydromorphone 0.5mg/0.5ml inj IVP PRN; -Ketorolac 30mg Inj IV PRN; -Ketorolac 60mg Inj IV PRN; -LORazepam Inj 2mg/ml 1ml IV PRN; -LR 1000ml 1,000 ML IVLG SCH; -Labetalol 5mg/ml 20ml vial IV PRN; -Lidocaine 1% MPF 10mg/ml 5ml ONE; -Lidocaine 2% MPF 5ml Vial INJ ONE; -Lidocaine 4% Amp ONE; -Maxitrol Opth Oint 3.5gm ONE; -Meperidine 25mg/ml Inj IV PRN; -Metoclopramide 10mg/2ml Inj IVP PRN; -Midazolam 2mg/2ml Inj IVP PRN; -Midazolam 2mg/2ml Inj ONE; -NS Irrig 1000ml ONE; -Norco 5mg/325mg tab ORAL PRN; -Norco 7.5mg/325mg tab ORAL PRN; -Oxycodone/Acetaminophen 5-325 ORAL PRN; -Pilocarpine 2% Opth Soln ONE; -Povidone-Iodine 5% opth solution ONE; -Pred Forte 1% Opth Susp 1ml ONE; -Propofol 10mg/ml 20ml IV ONE; -Sodium Hyaluronate 14 mg/ml 0.85ml ONE; -Sterile Water Irrig 1000ml IRRIG ONE; -Tobramycin Op Soln 0.3% ONE; -acetaZOLAMIDE 125mg tab ONE; -fentaNYL 100 mcg/2 mL IV PRN
[2017-05-12 02:00] VITALS: BP 164/89
[2017-05-12] MEDS ORDERED: AMLODIPINE BESY10 MG ORAL (02:47)
[2017-05-12] MEDS ORDERED: OXYCODONE HCL30 MG ORAL (02:47)
[2017-05-12] MEDS ORDERED: METOPROLOL SUCC50 MG ORAL (02:47)
[2017-05-12] MEDS ORDERED: VITAMIN D-40400 UNIT ORAL (02:47)
[2017-05-12] MEDS ORDERED: NORCO 5-325 TA1 EACH ORAL (02:47)
[2017-05-12] MEDS ORDERED: XANAX2 MG ORAL (02:47)
[2017-05-12] MEDS ORDERED: SENSIPAR90 MG PO (02:47)
[2017-05-12] MEDS ORDERED: PROAIR HFA8.5 GM INH (02:56)
[2017-05-12] MEDS ORDERED: ADVAIR 100-501 EACH INH (02:56)
[2017-05-12 03:58] VITALS: BP 149/95
[2017-05-12] MEDS ORDERED: ALPRAZolam 0.5mg tab ORAL PRN (04:00)
[2017-05-12] MEDS ORDERED: Mylanta II UD 30ml ORAL PRN (04:00)
[2017-05-12] MEDS: Metoprolol Tartrate 50mg tab ORAL SCH ×3 (04:28→21:14)
[2017-05-12] MEDS: NovoLOG Insulin Flexpen SUBQ SCH ×4 (07:07→21:00)
[2017-05-12 08:09] VITALS: BP 155/90
[2017-05-12] MEDS: Sensipar 30mg Tab ORAL SCH (08:50)
[2017-05-12] MEDS: Docusate 100mg cap ORAL SCH ×2 (08:51→17:26)
[2017-05-12] MEDS: Vitamin D 400 INTLU TAB ORAL SCH (08:51)
[2017-05-12] MEDS: Heparin 5000 units/ml inj SUBQ SCH ×2 (08:54→21:15)
[2017-05-12] MEDS: Advair 100/50 Inhaler - 14 dose INH SCH ×2 (08:57→18:46)
[2017-05-12 09:54] LABS: BASOPHILS % (AUTO) 1.3 % (0.0-2.0); EOSINOPHILS % (AUTO) 16.7 % (0.0-3.0); LYMPHOCYTES % (AUTO) 13.7 % (20.0-45.0); MEAN CORPUSCULAR VOLUME 106 FL (80-99); MEAN PLATELET VOLUME 6.2 FL (6.5-10.1); MONOCYTES % (AUTO) 7.4 % (1.0-10.0); NEUTROPHILS % (AUTO) 60.9 % (45.0-75.0); PLATELET COUNT 306 K/UL (150-450); RED BLOOD COUNT 3.39 M/UL (4.70-6.10); RED CELL DISTRIBUTION WIDTH 16.5 % (11.6-14.8); WHITE BLOOD COUNT 5.4 K/UL (4.8-10.8)
[2017-05-12 10:05] LABS: ALBUMIN/GLOBULIN RATIO 1.1 (1.0-2.7); CALCIUM 8.4 mg/dL (8.6-10.2); CREATININE 6.7 mg/dL (0.7-1.2); GLOMERULAR FILTRATION RATE 8.3 mL/min (>60); POTASSIUM 4.6 mEQ/L (3.4-4.9); TOTAL PROTEIN 7.6 g/dL (6.6-8.7); TROPONIN I < 0.30 ng/mL (<=0.30)
[2017-05-12 10:10] LABS: HEMOGLOBIN A1C 5.3 % (< 6.0)
[2017-05-12 10:16] LABS: THYROID STIMULATING HORMONE 2.03 uIU/mL (0.300-4.500)
[2017-05-12 11:25] VITALS: BP 147/89
--- NOTE | 2017-05-12 12:57 | Diagnostic Imaging Report ---
APPROVED REPORT CPT Code: 75135 Present Symptoms Comments: R/O DVT BILATERAL: Imaging reveals a patent deep venous system bilaterally. There is no evidence of thrombus within the femoral, popliteal or tibial segments. The greater saphenous veins are also within normal limits. Doppler indicates normal spontaneous flow within these segments.
--- NOTE | 2017-05-12 13:26 | Consultation ---
History of Present Illness General Date patient seen: May 12, 2017 Chief Complaint: chest pain/ pleural effusion Referring physician: dr. Almanzar Present Illness HPI 67 year old male with hx of ESRF, HTN, DM, CAD, CABG, presented to [facility] with CC of acute chest pain during HD, and later on after he woke up from sleep. He was initially evaluated in ER at [place] and then transferred [place] [facility] [place]. His CXR at [place] showed loculated effusion. I was asked to evaluate his pleural effusion. Allergies: Coded Allergies: ASPIRIN (Verified Allergy, Unknown, 11/15/16) Medication History Scheduled Albuterol Sulfate* (Proair Hfa*), 1 PUFF INH DAILY, (Reported) Alprazolam* (Xanax*), 2 MG ORAL THREE TIMES A DAY, (Reported) Amlodipine Besylate* (Amlodipine Besylate*), 10 MG ORAL DAILY, (Reported) Atorvastatin (Lipitor), 40 MG ORAL BEDTIME, (Reported) Carvedilol* (Carvedilol*), 25 MG ORAL DAILY, (Reported) Cholecalciferol (Vitamin D3) (Vitamin D-400*), 400 UNITS ORAL DAILY, (Reported) Cinacalcet Hcl (Sensipar), 90 MG PO DAILY, (Reported) Clopidogrel Bisulfate* (Plavix*), 75 MG ORAL DAILY, (Reported) Fluticasone/Salmeterol (Advair 100-50 Diskus), 1 PUFF INH EVERY 12 HOURS, ( Reported) Insulin Regular, Human* (Novolin R*), 0 SUBQ AC, (Reported) Metoprolol Succinate* (Metoprolol Succinate*), 50 MG ORAL BID, (Reported) Pantoprazole* (Protonix*), 40 MG ORAL DAILY, (Reported) Sevelamer Carbonate (Renvela), 800 MG ORAL THREE TIMES A DAY, (Reported) Scheduled PRN Hydrocodone Bit/Acetaminophen 5-325* ([place] 5-325*), 1 TAB ORAL Q6H PRN for For Pain, (Reported) Oxycodone Hcl (Oxycodone Hcl), 30 MG ORAL Q8HR PRN for For Pain, (Reported) Discontinued Medications Cholecalciferol (Vitamin D3) (Vitamin D), 400 UNIT PO, (Reported) Discontinued Reason: Medication dose changed Cinacalcet Hcl (Sensipar), 90 MG PO, (Reported) Discontinued Reason: Medication dose changed Clonazepam (Clonazepam), 2 MG PO TID, (Reported) Discontinued Reason: Pt stopped taking med Oxycodone Hcl* (Oxycodone Hcl*), 15 MG ORAL BID PRN for For Pain, (Reported) Discontinued Reason: Medication dose changed Patient History Healthcare decision maker Resuscitation status Full Code Advanced Directive on File Past Medical/Surgical History Past Medical/Surgical History: (1) Chest pain (2) CAD (coronary artery disease) (3) HTN (hypertension) (4) Hemodialysis patient (5) Anemia (6) Diabetes mellitus Review of Systems All Other Systems: negative except mentioned in HPI Physical Exam General Appearance: WD/WN, no apparent distress Lines, tubes and drains: peripheral, central line Neck: non-tender, normal alignment Respiratory/Chest: chest wall non-tender, lungs clear Cardiovascular/Chest: normal peripheral pulses, normal rate Abdomen: normal bowel sounds Extremities: normal range of motion Last 24 Hour Vital Signs Date Time Temp Pulse Resp B/P Pulse Ox O2 Delivery O2 Flow Rate FiO2 05/12/17 12:00 88 05/12/17 11:25 98.7 94 20 147/89 98 Room Air 05/12/17 08:51 91 155/90 05/12/17 08:51 91 155/90 05/12/17 08:46 91 16 97 Room Air 21 05/12/17 08:45 91 18 97 Room Air 21 05/12/17 08:09 98.5 91 20 155/90 97 Room Air 05/12/17 08:00 89 05/12/17 04:28 114 149/95 05/12/17 04:00 114 05/12/17 03:58 98.8 116 22 149/95 96 Room Air 05/12/17 02:00 98.2 98 20 164/89 Room Air 95.0 Laboratory Tests Test 05/12/17 09:45 White Blood Count 5.4 K/UL (4.8-10.8) Red Blood Count 3.39 M/UL (4.70-6.10) L Hemoglobin 11.5 G/DL (14.2-18.0) L Hematocrit 35.9 % (42.0-52.0) L Mean Corpuscular Volume 106 FL (80-99) H Mean Corpuscular Hemoglobin 34.0 PG (27.0-31.0) H Mean Corpuscular Hemoglobin Concent 32.0 G/DL (32.0-36.0) Red Cell Distribution Width 16.5 % (11.6-14.8) H Platelet Count 306 K/UL (150-450) Mean Platelet Volume 6.2 FL (6.5-10.1) L Neutrophils (%) (Auto) 60.9 % (45.0-75.0) Lymphocytes (%) (Auto) 13.7 % (20.0-45.0) L Monocytes (%) (Auto) 7.4 % (1.0-10.0) Eosinophils (%) (Auto) 16.7 % (0.0-3.0) H Basophils (%) (Auto) 1.3 % (0.0-2.0) Sodium Level 136 mEQ/L (135-145) Potassium Level 4.6 mEQ/L (3.4-4.9) Chloride Level 93 mEQ/L (98-107) L Carbon Dioxide Level 30 mEQ/L (20-30) Anion Gap 13 (5-15) Blood Urea Nitrogen 14 mg/dL (7-23) Creatinine 6.7 mg/dL (0.7-1.2) H Estimat Glomerular Filtration Rate 8.3 mL/min (>60) Glucose Level 94 mg/dL (74-106) Hemoglobin A1c 5.3 % (< 6.0) Calcium Level 8.4 mg/dL (8.6-10.2) L Total Bilirubin 0.6 mg/dL (0.0-1.2) Aspartate Amino Transf (AST/SGOT) 14 U/L (5-40) Alanine Aminotransferase (ALT/SGPT) 7 U/L (3-41) Alkaline Phosphatase 125 U/L (40-129) Troponin I < 0.30 ng/mL (<=0.30) Pro-B-Type Natriuretic Peptide 53779 pg/mL (0-125) H Total Protein 7.6 g/dL (6.6-8.7) Albumin 4.1 g/dL (3.5-5.2) Globulin 3.5 g/dL Albumin/Globulin Ratio 1.1 (1.0-2.7) Triglycerides Level 68 mg/dL (< 150) Cholesterol Level 82 mg/dL (< 200) LDL Cholesterol 26 mg/dL (60-99) L HDL Cholesterol 42 mg/dL (> 60) Cholesterol/HDL Ratio 2.0 (3.3-4.4) L Thyroid Stimulating Hormone (TSH) 2.030 uIU/mL (0.300-4.500) Height (Feet): 5 Height (Inches): 7.00 Weight (Pounds): 206 Medications Current Medications Medications (Trade) Dose Ordered Sig/Krissy Route PRN Reason Start Time Stop Time Status Last Admin Dose Admin Acetaminophen (Tylenol) 650 mg Q4H PRN ORAL Mild Pain/Temp > 100.5 05/12/17 04:00 06/11/17 03:59 Acetaminophen/ Hydrocodone Bitart ([place] 5/325) 1 tab Q6H PRN ORAL For Pain 05/12/17 04:00 05/19/17 03:59 Al Hydroxide/Mg Hydroxide (Mylanta II) 30 ml Q6H PRN ORAL dyspepsia 05/12/17 04:00 06/11/17 03:59 Albuterol Sulfate (Proventil MDI) 1 puff DAILY PRN INH Shortness of Breath 05/12/17 04:00 06/11/17 03:59 Alprazolam (Xanax) 2 mg TID PRN ORAL For Anxiety 05/12/17 04:00 05/19/17 03:59 Amlodipine Besylate (Norvasc) 10 mg DAILY ORAL 05/12/17 09:00 06/11/17 08:59 05/12/17 08:51 Atorvastatin Calcium (Lipitor) 80 mg BEDTIME ORAL 05/12/17 21:00 06/11/17 20:59 Cinacalcet (Sensipar) 90 mg DAILY ORAL 05/12/17 09:00 06/11/17 08:59 05/12/17 08:50 Clopidogrel Bisulfate (Plavix) 75 mg DAILY ORAL 05/12/17 09:00 06/11/17 08:59 05/12/17 08:51 Dextrose (Dextrose 50%) STAT PRN IV Hypoglycemia 05/12/17 04:00 06/11/17 03:59 Docusate Sodium (Colace) 100 mg TWICE A DAY ORAL 05/12/17 09:00 06/11/17 08:59 05/12/17 08:51 Heparin Sodium (Porcine) (Heparin 5000 units/ml) 5,000 units EVERY 12 HOURS SUBQ 05/12/17 09:00 06/11/17 08:59 05/12/17 08:54 Insulin Aspart (NovoLOG) BEFORE MEALS AND HS SUBQ 05/12/17 06:30 06/11/17 06:29 05/12/17 07:07 Metoprolol Tartrate (Lopressor) 50 mg Q12HR ORAL 05/12/17 04:00 06/11/17 03:59 05/12/17 08:51 Salmeterol Xinafoate/ Fluticasone (Advair 100/50 Diskus) 1 puffs TWICE A DAY INH 05/12/17 09:00 06/11/17 08:59 05/12/17 08:57 Sevelamer Carbonate (Renvela) 800 mg THREE TIMES A DAY ORAL 05/12/17 09:00 06/11/17 08:59 05/12/17 12:22 Vitamin D (Vitamin D) 400 intlu DAILY ORAL 05/12/17 09:00 06/11/17 08:59 05/12/17 08:51 Assessment/Plan Problem List: (1) Pleural effusion ICD Codes: J90 - Pleural effusion, not elsewhere classified SNOMED: 60846074 (2) End stage renal failure on dialysis ICD Codes: N18.6 - End stage renal disease; Z99.2 - Dependence on renal dialysis SNOMED: 122816921 (3) Diabetes mellitus ICD Codes: E11.9 - Type 2 diabetes mellitus without complications SNOMED: 29749441 (4) Anemia ICD Codes: D64.9 - Anemia, unspecified SNOMED: 210896694 (5) CAD (coronary artery disease) ICD Codes: I25.10 - Atherosclerotic heart disease of [place] coronary artery without angina pectoris SNOMED: 65628665 Assessment/Plan cxr, old chart and CT reviewed HD nephrology respiratory treatment titrate fio2 to sat of 92%/ dvt prophylaxis. JUAN SPENCE May 12, 2017 13:26
--- NOTE | 2017-05-12 14:50 | Consultation ---
Consult Note Assessment/Plan Renal consult dictated # [id number] LUNA LAGUNAS May 12, 2017 14:50
[2017-05-12] MEDS: Nephrovite tab (Rena-Vite) ORAL SCH (15:00)
[2017-05-12] MEDS ORDERED: Heparin Sod 1000 units/ml 10ml IV PRN (15:00)
--- NOTE | 2017-05-12 15:27 | Cardiac Electrophysiology PN ---
Subjective Subjective [id number] Objective Last 24 Hour Vital Signs Date Time Temp Pulse Resp B/P Pulse Ox O2 Delivery O2 Flow Rate FiO2 05/12/17 12:00 88 05/12/17 11:25 98.7 94 20 147/89 98 Room Air 05/12/17 08:51 91 155/90 05/12/17 08:51 91 155/90 05/12/17 08:46 91 16 97 Room Air 05/12/17 08:45 91 18 97 Room Air 21 05/12/17 08:09 98.5 91 20 155/90 97 Room Air 05/12/17 08:00 89 05/12/17 04:28 114 149/95 05/12/17 04:00 114 05/12/17 03:58 98.8 116 22 149/95 96 Room Air 05/12/17 02:00 98.2 98 20 164/89 Room Air 95.0 Laboratory Tests Test 05/12/17 09:45 White Blood Count 5.4 K/UL (4.8-10.8) Red Blood Count 3.39 M/UL (4.70-6.10) L Hemoglobin 11.5 G/DL (14.2-18.0) L Hematocrit 35.9 % (42.0-52.0) L Mean Corpuscular Volume 106 FL (80-99) H Mean Corpuscular Hemoglobin 34.0 PG (27.0-31.0) H Mean Corpuscular Hemoglobin Concent 32.0 G/DL (32.0-36.0) Red Cell Distribution Width 16.5 % (11.6-14.8) H Platelet Count 306 K/UL (150-450) Mean Platelet Volume 6.2 FL (6.5-10.1) L Neutrophils (%) (Auto) 60.9 % (45.0-75.0) Lymphocytes (%) (Auto) 13.7 % (20.0-45.0) L Monocytes (%) (Auto) 7.4 % (1.0-10.0) Eosinophils (%) (Auto) 16.7 % (0.0-3.0) H Basophils (%) (Auto) 1.3 % (0.0-2.0) Sodium Level 136 mEQ/L (135-145) Potassium Level 4.6 mEQ/L (3.4-4.9) Chloride Level 93 mEQ/L (98-107) L Carbon Dioxide Level 30 mEQ/L (20-30) Anion Gap 13 (5-15) Blood Urea Nitrogen 14 mg/dL (7-23) Creatinine 6.7 mg/dL (0.7-1.2) H Estimat Glomerular Filtration Rate 8.3 mL/min (>60) Glucose Level 94 mg/dL (74-106) Hemoglobin A1c 5.3 % (< 6.0) Calcium Level 8.4 mg/dL (8.6-10.2) L Total Bilirubin 0.6 mg/dL (0.0-1.2) Aspartate Amino Transf (AST/SGOT) 14 U/L (5-40) Alanine Aminotransferase (ALT/SGPT) 7 U/L (3-41) Alkaline Phosphatase 125 U/L (40-129) Troponin I < 0.30 ng/mL (<=0.30) Pro-B-Type Natriuretic Peptide 30381 pg/mL (0-125) H Total Protein 7.6 g/dL (6.6-8.7) Albumin 4.1 g/dL (3.5-5.2) Globulin 3.5 g/dL Albumin/Globulin Ratio 1.1 (1.0-2.7) Triglycerides Level 68 mg/dL (< 150) Cholesterol Level 82 mg/dL (< 200) LDL Cholesterol 26 mg/dL (60-99) L HDL Cholesterol 42 mg/dL (> 60) Cholesterol/HDL Ratio 2.0 (3.3-4.4) L Thyroid Stimulating Hormone (TSH) 2.030 uIU/mL (0.300-4.500) LUISA JHAVERI May 12, 2017 15:27
[2017-05-12 15:42] VITALS: BP 136/74
[2017-05-12] MEDS: Norco 5mg/325mg tab ORAL PRN (17:32)
[2017-05-12 20:00] VITALS: BP 134/84
[2017-05-12] MEDS: Atorvastatin 80mg tab ORAL SCH (21:14)
--- NOTE | 2017-05-12 22:30 | Consultation ---
DATE OF CONSULTATION: NEPHROLOGY CONSULTATION REFERRING PHYSICIAN: Jacques Almanzar M.D. REASON FOR CONSULTATION: End-stage renal disease, requiring hemodialysis. HISTORY OF PRESENT ILLNESS: This is a 67-year-old male with end-stage renal disease, on hemodialysis every Wednesday, , and Wednesday. 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 The patient has been on dialysis for about 14 years. He was initially admitted to [facility] with chest pain during dialysis and subsequently he was transferred to [facility]. PAST MEDICAL HISTORY: History of hypertension, diabetes mellitus, and coronary artery disease status post coronary artery bypass graft. MEDICATIONS: Reviewed in the EMR. ALLERGIES: Reported to aspirin. REVIEW OF SYSTEMS: Noncontributory. PHYSICAL EXAMINATION: GENERAL: The patient is a 67-year-old male, in no acute distress. VITAL SIGNS: Blood pressure is 164/89, pulse 98, respirations 20, and temperature 98.2 degrees. HEENT: [place] conjunctivae. Anicteric sclerae. NECK: Supple. LUNGS: Clear to auscultation. HEART: S1 and S2 without murmurs or rubs. ABDOMEN: Soft and nontender. EXTREMITIES: No cyanosis or edema. LABORATORY AND DIAGNOSTIC DATA: The CBC shows a WBC of 5.4, hemoglobin 11.5, and platelets 306,000. Chemistry panel shows serum sodium 136, potassium 4.6, chloride 93, CO2 30, BUN is 14, creatinine 6.7 and blood sugar is 94. ASSESSMENT: This is a 67-year-old male, who has end-stage renal disease on hemodialysis every Wednesday, , and Wednesday. He was admitted with chest pain. The patient has history of coronary disease and hypertension. PLAN: The patient will be dialyzed tomorrow, labs will be followed and adjust will be made to the patient's medications. Thank you very much, Dr. Almanzar, for this consultation. Juan Recio M.D. DR: FÉLIX JOB#: [id number] CC:
[2017-05-13] VITALS (8 sets, daily range): BP systolic 114–164; BP diastolic 57–92
--- NOTE | 2017-05-13 01:01 | Consultation ---
DATE OF CONSULTATION: 05/12/2017 CARDIOLOGY CONSULTATION REFERRING PHYSICIAN: Jacques Almanzar M.D. REASON FOR CONSULTATION: Evaluation of chest pain, the patient has a history of coronary artery bypass graft. HISTORY OF PRESENT ILLNESS: The patient is a very pleasant 67-year-old gentleman, under my Cardiology care with a history of hypertension, coronary artery disease, history of stent placement in 2013 as well as history of coronary bypass graft in 2005 at [facility]. The patient also has a history of diabetic neuropathy and nephropathy and has been on hemodialysis. The patient was at [facility] about five months ago for recurrence of his chest pain. Stress test in June 2016 showed no evidence of ischemia, it was compatible with old infarct. The patient was admitted and a Cardiology consultation was obtained for further evaluation and management. REVIEW OF SYSTEMS: His review of systems was thoroughly performed and was negative other than what was mentioned in the history of present illness. PAST MEDICAL HISTORY: Include: 1. Hypertension. 2. Diabetes. 3. Hyperlipidemia. 4. Coronary artery bypass graft. 5. History of prior stent placement. 6. End-stage renal disease, on hemodialysis. 7. Anemia. FAMILY HISTORY: Noncontributory. SOCIAL HISTORY: He lives at home. Does not smoke or drink alcohol. PHYSICAL EXAMINATION: VITAL SIGNS: Blood pressure is 147/89, pulse 90, respirations 18, and he is afebrile. HEAD AND NECK: Shows mild JVD. LUNGS: Coarse rhonchi. CARDIOVASCULAR: Shows regular S1 and S2 with no gallop or murmur. Bypass site is intact. EXTREMITIES: A 1+ pitting edema. His dialysis access is in the left arm. LABORATORY DATA: Show white count 5.4, hemoglobin 11.5, hematocrit 35.9, and platelet count of 306,000. Sodium is 136, potassium 4.6, BUN of 14, creatinine 6.7, and glucose of 94. His BNP is 20,000. Troponin is negative. ASSESSMENT AND PLAN: 1. Chest pain. We will completely rule out myocardial infarction protocol. We will schedule the patient for nuclear stress and further evaluate him tomorrow. In view of this patient with a history of coronary artery bypass graft, obviously if the patient's exercise become positive, he would need cardiac catheterization. In the meantime, continue him on Lipitor and Plavix 75 mg daily, Toprol 50 mg b.i.d. 2. Hyperlipidemia, on Lipitor. 3. Hypertension, on Norvasc 10 mg daily and Lopressor 50 mg b.i.d. 4. Chronic obstructive pulmonary disease, on DuoNeb. 5. It is of note that the patient's echocardiogram on 05/12/2017 showed ejection fraction of 55%. Thank very much, Dr. Almanzar for allowing me to participate in the care of this patient. Please do not hesitate to contact me for any questions regarding my evaluation. Carlos Springer M.D. DR: ELAYNE JOB#: [id number] CC:
--- NOTE | 2017-05-13 01:30 | History and Physical Report ---
DATE OF ADMISSION: 05/12/2017 HISTORY OF PRESENT ILLNESS: The patient is an unfortunate 67-year-old gentleman with history of end-stage renal disease, diabetes, CAD, coronary artery bypass graft, and hypertension, who was taken to [facility] with complaints of chest pain occurring during hemodialysis. The patient was evaluated in the ER at [place], chest x-ray was noted to have a loculated effusion. Arrangements were made for him to be transferred to [place] for further care. The patient was admitted to a monitored bed. He denies any headaches, denies any cough, denies any abdominal pain. He does have some dyspnea mostly with exertion. Denies any urinary symptoms. The patient is dialysis dependent. PAST MEDICAL HISTORY: History of end-stage renal disease, on dialysis, history of hypertension, history of diabetes mellitus, history of CAD, history of coronary artery bypass graft, history of renal failure on dialysis, and history of anemia. MEDICATIONS: Medications he is on, please see reconciled medication list. ALLERGIES: No known. SOCIAL HISTORY: Does not smoke. Does not drink any alcohol. PHYSICAL EXAMINATION: GENERAL: He is well developed, well nourished, currently in no apparent distress. VITAL SIGNS: Revealed a blood pressure of 134/84, respirations of 20, pulse oximetry 98% on room air, temperature 98.7, and pulse 89. HEENT: Head is normocephalic and atraumatic. Pupils are equal and reactive to light. Extraocular muscles are intact. Eyes are anicteric. NECK: Supple. No JVP. LUNGS: Clear. HEART: Regular rate and rhythm. ABDOMEN: Soft. Positive bowel sounds. EXTREMITIES: Trace edema. NEUROLOGIC: Alert and oriented. Nonfocal. He does have a dialysis catheter. No sign of infection. PSYCHIATRIC: Normal mood and affect. LABORATORY AND DIAGNOSTIC DATA: Labs reveal a white count of 5.4, hemoglobin 11.5, hematocrit 35.9, and platelet count of 306,000, MCV is 106, which is high. Sodium 136, potassium 4.6, chloride 93, BUN of 14, and creatinine 0.7. BNP is 20,906. Troponin less than 0.3. TSH is normal. EKG noted. Chest x-ray reviewed from [place]. ASSESSMENT AND PLAN: The patient is an unfortunate 67-year-old male with history of coronary artery disease, coronary artery bypass graft, hypertension, hyperlipidemia, diabetes, and end-stage renal disease, on dialysis, who was taken for chest pain to [facility] and was transferred for further evaluation. He does have an effusion, which is loculated based on the chest x-ray. The patient will be admitted, and we will obtain a 2D echo, obtain further troponins, and obtain lower extremity Dopplers for further evaluation. I have asked Cardiology evaluation from Dr. Springer to see him. I have also asked Pulmonary, Dr. Killian to see him for loculated effusion. Consider obtaining CT scan. The patient also will be seen by Dr. Juan Recio to arrange dialysis. The patient should be on DVT and ulcer prophylaxes. Jacques Almanzar M.D. DR: PETER JOB#: [id number] CC:
[2017-05-13] MEDS: HYDROmorphone 1mg/ml Carpuject IVP PRN ×4 (02:07→18:55)
[2017-05-13 05:58] LABS: BASOPHILS % (AUTO) 1.3 % (0.0-2.0); EOSINOPHILS % (AUTO) 18.5 % (0.0-3.0); MEAN CORPUSCULAR HEMOGLOBIN 35.6 PG (27.0-31.0); MEAN CORPUSCULAR HGB CONC 33.6 G/DL (32.0-36.0); MEAN CORPUSCULAR VOLUME 106 FL (80-99); MEAN PLATELET VOLUME 5.5 FL (6.5-10.1); MONOCYTES % (AUTO) 6.4 % (1.0-10.0); NEUTROPHILS % (AUTO) 54.9 % (45.0-75.0); PLATELET COUNT 283 K/UL (150-450); RED BLOOD COUNT 3.14 M/UL (4.70-6.10); RED CELL DISTRIBUTION WIDTH 16.6 % (11.6-14.8); WHITE BLOOD COUNT 5.2 K/UL (4.8-10.8)
[2017-05-13 06:08] LABS: TROPONIN I < 0.30 ng/mL (<=0.30)
[2017-05-13 06:17] LABS: CALCIUM 7.6 mg/dL (8.6-10.2); CREATININE 8.6 mg/dL (0.7-1.2); GLOMERULAR FILTRATION RATE 6.2 mL/min (>60); PHOSPHORUS 4.2 mg/dL (2.5-4.8); POTASSIUM 4.5 mEQ/L (3.4-4.9)
[2017-05-13] MEDS: NovoLOG Insulin Flexpen SUBQ SCH ×4 (06:30→20:59)
[2017-05-13 06:43] LABS: CHOLESTEROL/HDL RATIO 2.3 (3.3-4.4)
[2017-05-13 06:54] LABS: THYROID STIMULATING HORMONE 2.11 uIU/mL (0.300-4.500)
[2017-05-13] MEDS: Advair 100/50 Inhaler - 14 dose INH SCH ×2 (08:04→19:31)
[2017-05-13] MEDS: Metoprolol Tartrate 50mg tab ORAL SCH ×2 (08:20→20:56)
--- NOTE | 2017-05-13 09:08 | Cardiac Electrophysiology PN ---
Assessment/Plan Assessment/Plan 1. Chest pain in a patient with hx of CABG. Ruled out for myocardial infarction. Nuclear stress test pending today. Continue on Lipitor and Plavix 75 mg daily, Toprol 50 mg b.i.d. Echocardiogram on 05/12/2017 showed ejection fraction of 55%. 2. Hyperlipidemia, on Lipitor. 3. Hypertension, on Norvasc 10 mg daily and Lopressor 50 mg b.i.d. and HD. 4. Chronic obstructive pulmonary disease, on DuoNeb. SWETHA RN Subjective Subjective Comfortable getting dialysis. No chest pain or SOB. Objective Last 24 Hour Vital Signs Date Time Temp Pulse Resp B/P Pulse Ox O2 Delivery O2 Flow Rate FiO2 05/13/17 08:31 84 20 96 Room Air 21 05/13/17 08:31 84 20 96 Room Air 21 05/13/17 08:21 93 114/58 05/13/17 08:20 93 114/58 05/13/17 08:00 97.2 93 20 114/58 95 Room Air 05/13/17 05:10 Room Air 05/13/17 05:00 97.3 89 20 134/57 99 Room Air 05/13/17 04:00 90 05/13/17 04:00 97.4 91 20 159/84 96 Room Air 05/13/17 00:00 86 05/13/17 00:00 98.1 88 20 164/84 98 Room Air 95.0 21 05/12/17 21:14 87 134/84 05/12/17 20:00 98.7 87 20 134/84 98 Room Air 05/12/17 20:00 89 05/12/17 18:48 89 20 96 Room Air 05/12/17 18:47 89 20 95 Room Air 05/12/17 16:00 91 05/12/17 15:42 98.7 87 20 136/74 100 Room Air 05/12/17 12:00 88 05/12/17 11:25 98.7 94 20 147/89 98 Room Air Intake and Output 05/12/17 05/13/17 19:00 07:00 Intake Total 690 ml Balance 690 ml Intake Oral 690 ml Laboratory Tests Test 05/12/17 09:45 05/13/17 05:25 White Blood Count 5.4 K/UL (4.8-10.8) 5.2 K/UL (4.8-10.8) Red Blood Count 3.39 M/UL (4.70-6.10) L 3.14 M/UL (4.70-6.10) L Hemoglobin 11.5 G/DL (14.2-18.0) L 11.2 G/DL (14.2-18.0) L Hematocrit 35.9 % (42.0-52.0) L 33.2 % (42.0-52.0) L Mean Corpuscular Volume 106 FL (80-99) H 106 FL (80-99) H Mean Corpuscular Hemoglobin 34.0 PG (27.0-31.0) H 35.6 PG (27.0-31.0) H Mean Corpuscular Hemoglobin Concent 32.0 G/DL (32.0-36.0) 33.6 G/DL (32.0-36.0) Red Cell Distribution Width 16.5 % (11.6-14.8) H 16.6 % (11.6-14.8) H Platelet Count 306 K/UL (150-450) 283 K/UL (150-450) Mean Platelet Volume 6.2 FL (6.5-10.1) L 5.5 FL (6.5-10.1) L Neutrophils (%) (Auto) 60.9 % (45.0-75.0) 54.9 % (45.0-75.0) Lymphocytes (%) (Auto) 13.7 % (20.0-45.0) L 19.0 % (20.0-45.0) L Monocytes (%) (Auto) 7.4 % (1.0-10.0) 6.4 % (1.0-10.0) Eosinophils (%) (Auto) 16.7 % (0.0-3.0) H 18.5 % (0.0-3.0) H Basophils (%) (Auto) 1.3 % (0.0-2.0) 1.3 % (0.0-2.0) Sodium Level 136 mEQ/L (135-145) 134 mEQ/L (135-145) L Potassium Level 4.6 mEQ/L (3.4-4.9) 4.5 mEQ/L (3.4-4.9) Chloride Level 93 mEQ/L (98-107) L 92 mEQ/L (98-107) L Carbon Dioxide Level 30 mEQ/L (20-30) 25 mEQ/L (20-30) Anion Gap 13 (5-15) 17 (5-15) H Blood Urea Nitrogen 14 mg/dL (7-23) 20 mg/dL (7-23) Creatinine 6.7 mg/dL (0.7-1.2) H 8.6 mg/dL (0.7-1.2) H Estimat Glomerular Filtration Rate 8.3 mL/min (>60) 6.2 mL/min (>60) Glucose Level 94 mg/dL (74-106) 96 mg/dL (74-106) Hemoglobin A1c 5.3 % (< 6.0) Calcium Level 8.4 mg/dL (8.6-10.2) L 7.6 mg/dL (8.6-10.2) L Total Bilirubin 0.6 mg/dL (0.0-1.2) Aspartate Amino Transf (AST/SGOT) 14 U/L (5-40) Alanine Aminotransferase (ALT/SGPT) 7 U/L (3-41) Alkaline Phosphatase 125 U/L (40-129) Troponin I < 0.30 ng/mL (<=0.30) < 0.30 ng/mL (<=0.30) Pro-B-Type Natriuretic Peptide 50005 pg/mL (0-125) H Total Protein 7.6 g/dL (6.6-8.7) Albumin 4.1 g/dL (3.5-5.2) Globulin 3.5 g/dL Albumin/Globulin Ratio 1.1 (1.0-2.7) Triglycerides Level 68 mg/dL (< 150) 107 mg/dL (< 150) Cholesterol Level 82 mg/dL (< 200) 86 mg/dL (< 200) LDL Cholesterol 26 mg/dL (60-99) L 27 mg/dL (60-99) L HDL Cholesterol 42 mg/dL (> 60) 38 mg/dL (> 60) Cholesterol/HDL Ratio 2.0 (3.3-4.4) L 2.3 (3.3-4.4) L Thyroid Stimulating Hormone (TSH) 2.030 uIU/mL (0.300-4.500) 2.110 uIU/mL (0.300-4.500) Phosphorus Level 4.2 mg/dL (2.5-4.8) Free Thyroxine 1.30 ng/dL (0.86-1.85) Objective HEAD AND NECK: Shows mild JVD. LUNGS: Coarse rhonchi. CARDIOVASCULAR: Shows regular S1 and S2 with no gallop or murmur. Bypass site is intact. EXTREMITIES: A 1+ pitting edema. His dialysis access is in the left arm. LUISA JHAVERI May 13, 2017 09:08
[2017-05-13] MEDS: Vitamin D 400 INTLU TAB ORAL SCH (09:30)
[2017-05-13] MEDS: Nephrovite tab (Rena-Vite) ORAL SCH (09:30)
[2017-05-13] MEDS: Docusate 100mg cap ORAL SCH ×2 (09:30→17:28)
[2017-05-13] MEDS: Heparin 5000 units/ml inj SUBQ SCH ×2 (09:31→20:06)
[2017-05-13] MEDS: Sensipar 30mg Tab ORAL SCH (10:03)
[2017-05-13] MEDS ORDERED: Adenosine Inj IVP ONE (12:00)
--- NOTE | 2017-05-13 13:18 | Pulmonology Progress Note ---
Assessment/Plan Problems: (1) Pleural effusion (2) End stage renal failure on dialysis (3) Diabetes mellitus (4) Anemia (5) CAD (coronary artery disease) Assessment/Plan stress test was non ischemic cxr, US of chest pending HD by nephrology symptomatic treatment respiratory treatment all notes and meds reviewed. Subjective ROS Limited/Unobtainable: No Interval Events: stress test is done, Allergies: Coded Allergies: ASPIRIN (Verified Allergy, Unknown, 11/15/16) Objective Last 24 Hour Vital Signs Date Time Temp Pulse Resp B/P Pulse Ox O2 Delivery O2 Flow Rate FiO2 05/13/17 12:09 93 05/13/17 09:16 Room Air 05/13/17 09:14 97.0 93 18 124/63 98 Room Air 05/13/17 08:31 84 20 96 Room Air 05/13/17 08:31 84 20 96 Room Air 21 05/13/17 08:21 93 114/58 05/13/17 08:20 93 114/58 05/13/17 08:00 95 05/13/17 08:00 97.2 93 20 114/58 95 Room Air 05/13/17 05:10 Room Air 05/13/17 05:00 97.3 89 20 134/57 99 Room Air 05/13/17 04:00 90 05/13/17 04:00 97.4 91 20 159/84 96 Room Air 05/13/17 00:00 86 05/13/17 00:00 98.1 88 20 164/84 98 Room Air 95.0 21 05/12/17 21:14 87 134/84 05/12/17 20:00 98.7 87 20 134/84 98 Room Air 05/12/17 20:00 89 05/12/17 18:48 89 20 96 Room Air 21 05/12/17 18:47 89 20 95 Room Air 05/12/17 16:00 91 05/12/17 15:42 98.7 87 20 136/74 100 Room Air Intake and Output 05/12/17 05/13/17 19:00 07:00 Intake Total 690 ml Balance 690 ml Intake Oral 690 ml General Appearance: WD/WN HEENT: normocephalic, atraumatic Respiratory/Chest: chest wall non-tender, lungs clear, normal breath sounds Cardiovascular: normal peripheral pulses, normal rate Genitourinary: normal external genitalia Extremities: no cyanosis Neurologic/Psychiatric: 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 II-XII grossly normal, no motor/sensory deficits Laboratory Tests 05/13/17 05:25: White Blood Count 5.2, Red Blood Count 3.14L, Hemoglobin 11.2L, Hematocrit 33.2L , Mean Corpuscular Volume 106H, Mean Corpuscular Hemoglobin 35.6H, Mean Corpuscular Hemoglobin Concent 33.6, Red Cell Distribution Width 16.6H, Platelet Count 283, Mean Platelet Volume 5.5L, Neutrophils (%) (Auto) 54.9, Lymphocytes (%) (Auto) 19.0L, Monocytes (%) (Auto) 6.4, Eosinophils (%) (Auto) 18.5H, Basophils (%) (Auto) 1.3, Sodium Level 134L, Potassium Level 4.5, Chloride Level 92L, Carbon Dioxide Level 25, Anion Gap 17H, Blood Urea Nitrogen 20, Creatinine 8.6H, Estimat Glomerular Filtration Rate 6.2, Glucose Level 96, Calcium Level 7.6L, Phosphorus Level 4.2, Troponin I < 0.30, Triglycerides Level 107, Cholesterol Level 86, LDL Cholesterol 27L, HDL Cholesterol 38, Cholesterol/HDL Ratio 2.3L, Thyroid Stimulating Hormone (TSH) 2.110, Free Thyroxine 1.30 Current Medications Medications (Trade) Dose Ordered Sig/Krissy Route PRN Reason Start Time Stop Time Status Last Admin Dose Admin Acetaminophen (Tylenol) 650 mg Q4H PRN ORAL Mild Pain/Temp > 100.5 05/12/17 04:00 06/11/17 03:59 Acetaminophen/ Hydrocodone Bitart ([place] 5/325) 1 tab Q6H PRN ORAL For Pain 05/12/17 04:00 05/19/17 03:59 05/12/17 17:32 Al Hydroxide/Mg Hydroxide (Mylanta II) 30 ml Q6H PRN ORAL dyspepsia 05/12/17 04:00 06/11/17 03:59 Albuterol Sulfate (Proventil MDI) 1 puff DAILY PRN INH Shortness of Breath 05/12/17 04:00 06/11/17 03:59 Alprazolam (Xanax) 2 mg TID PRN ORAL For Anxiety 05/12/17 04:00 05/19/17 03:59 Amlodipine Besylate (Norvasc) 10 mg DAILY ORAL 05/12/17 09:00 06/11/17 08:59 05/12/17 08:51 Atorvastatin Calcium (Lipitor) 80 mg BEDTIME ORAL 05/12/17 21:00 06/11/17 20:59 05/12/17 21:14 Cinacalcet (Sensipar) 90 mg DAILY ORAL 05/12/17 09:00 06/11/17 08:59 05/13/17 10:03 Clopidogrel Bisulfate (Plavix) 75 mg DAILY ORAL 05/12/17 09:00 06/11/17 08:59 05/13/17 09:30 Dextrose (Dextrose 50%) STAT PRN IV Hypoglycemia 05/12/17 04:00 06/11/17 03:59 Diphenhydramine HCl (Benadryl) 25 mg Q4H PRN ORAL Itching 05/13/17 09:30 06/12/17 09:29 05/13/17 09:30 Docusate Sodium (Colace) 100 mg TWICE A DAY ORAL 05/12/17 09:00 06/11/17 08:59 05/13/17 09:30 Heparin Sodium (Porcine) (Heparin 5000 units/ml) 5,000 units EVERY 12 HOURS SUBQ 05/12/17 09:00 06/11/17 08:59 05/13/17 09:31 Heparin Sodium (Porcine) (Heparin Sod 1000 units/ml 10ml) 2,000 unit ONCE PRN IV FOR HD USE ONLY 05/12/17 15:00 05/13/17 23:59 Hydromorphone HCl (Dilaudid) 1 mg Q4H PRN IVP Severe Pain (Pain Scale 7-10) 05/12/17 21:45 05/19/17 21:44 05/13/17 07:45 Insulin Aspart (NovoLOG) BEFORE MEALS AND HS SUBQ 05/12/17 06:30 06/11/17 06:29 05/12/17 07:07 Metoprolol Tartrate (Lopressor) 50 mg Q12HR ORAL 05/12/17 04:00 06/11/17 03:59 05/12/17 21:14 Salmeterol Xinafoate/ Fluticasone (Advair 100/50 Diskus) 1 puffs TWICE A DAY INH 05/12/17 09:00 06/11/17 08:59 05/13/17 08:04 Sevelamer Carbonate (Renvela) 800 mg THREE TIMES A DAY ORAL 05/12/17 09:00 06/11/17 08:59 05/13/17 09:30 Sodium Chloride (Sodium Chloride 1000ml bag) 1,000 ml @ 500 mls/hr Q2H PRN IVLG sbp<90 during hd 05/12/17 15:00 05/13/17 23:59 Vitamin B Complex/ Vit C/Folic Acid 1 tab 1 tab DAILY ORAL 05/12/17 15:00 06/11/17 14:59 05/13/17 09:30 Vitamin D (Vitamin D) 400 intlu DAILY ORAL 05/12/17 09:00 06/11/17 08:59 05/13/17 09:30 JUAN SPENCE May 13, 2017 13:18
--- NOTE | 2017-05-13 14:55 | Diagnostic Imaging Report ---
Indication: Dyspnea Comparison: 09/14/17 A single view chest radiograph was obtained. Findings: Sternotomy is noted. There is pleural thickening on the left side which was noted on the prior study as well. No definite infiltrate seen. Impression: No change. No acute findings appreciated. Pleural thickening on the left lung base
--- NOTE | 2017-05-13 15:47 | Diagnostic Imaging Report ---
Indication: chest pain Technique: The study was conducted under the supervision of a casino banker. Adenosine infusion followed by intravenous administration of 31.8 mCi of technetium 99m Myoview was performed. Three plane SPECT imaging of the heart was then performed. A resting study was performed as part of the one-day protocol with 10 mCi of technetium 99m myoview injected intravenously at that time. Three plane SPECT imaging of the heart was obtained. Comparison: None Clinical data: 1. Clinical response: Non ischemic 2. Electrocardiographic response: Non ischemic Findings: The myocardial perfusion scan demonstrates reversible perfusion defect involving the anterior wall suspicious for ischemia. Please correlate clinically. In addition there appears to be a septal defect that is fixed. LVEF estimated at 56%. Impression: Suspect myocardial ischemia involving the anterior wall. Fixed septal defect likely myocardial infarct. LVEF 56% Findings were discussed with the nurse on 2 E. 05/13/17 @2:57pm, who is in the process of contacting the casino banker for the patient.
[2017-05-13] MEDS: Atorvastatin 80mg tab ORAL SCH (20:56)
--- NOTE | 2017-05-13 23:21 | General Progress Note ---
Assessment/Plan Assessment/Plan chest pain loculated effusion renal failure getting stress test check echol check cxr pulmonary fup dialysis dependent dvt and ulce prophylaxis dc planning to snf, rclb Subjective Allergies: Coded Allergies: ASPIRIN (Verified Allergy, Unknown, 11/15/16) Subjective no chest pain or sob Objective Last 24 Hour Vital Signs Date Time Temp Pulse Resp B/P Pulse Ox O2 Delivery O2 Flow Rate FiO2 05/13/17 20:56 103 137/87 05/13/17 20:00 106 05/13/17 19:59 98.6 103 21 137/87 95 Room Air 05/13/17 19:31 104 20 95 Room Air 21 05/13/17 19:31 104 20 95 Room Air 21 05/13/17 16:36 97.6 99 19 151/92 94 Room Air 05/13/17 16:00 96 05/13/17 12:15 98.9 92 20 132/79 100 Room Air 05/13/17 12:09 93 05/13/17 12:00 98 05/13/17 09:16 Room Air 05/13/17 09:14 97.0 93 18 124/63 98 Room Air 05/13/17 08:31 84 20 96 Room Air 21 05/13/17 08:31 84 20 96 Room Air 21 05/13/17 08:21 93 114/58 05/13/17 08:20 93 114/58 05/13/17 08:00 95 05/13/17 08:00 97.2 93 20 114/58 95 Room Air 05/13/17 05:10 Room Air 05/13/17 05:00 97.3 89 20 134/57 99 Room Air 05/13/17 04:00 90 05/13/17 04:00 97.4 91 20 159/84 96 Room Air 05/13/17 00:00 86 05/13/17 00:00 98.1 88 20 164/84 98 Room Air 95.0 21 Intake and Output 05/12/17 05/13/17 19:00 07:00 Intake Total 690 ml Balance 690 ml Intake Oral 690 ml Laboratory Tests 05/13/17 05:25: White Blood Count 5.2, Red Blood Count 3.14L, Hemoglobin 11.2L, Hematocrit 33.2L , Mean Corpuscular Volume 106H, Mean Corpuscular Hemoglobin 35.6H, Mean Corpuscular Hemoglobin Concent 33.6, Red Cell Distribution Width 16.6H, Platelet Count 283, Mean Platelet Volume 5.5L, Neutrophils (%) (Auto) 54.9, Lymphocytes (%) (Auto) 19.0L, Monocytes (%) (Auto) 6.4, Eosinophils (%) (Auto) 18.5H, Basophils (%) (Auto) 1.3, Sodium Level 134L, Potassium Level 4.5, Chloride Level 92L, Carbon Dioxide Level 25, Anion Gap 17H, Blood Urea Nitrogen 20, Creatinine 8.6H, Estimat Glomerular Filtration Rate 6.2, Glucose Level 96, Calcium Level 7.6L, Phosphorus Level 4.2, Troponin I < 0.30, Triglycerides Level 107, Cholesterol Level 86, LDL Cholesterol 27L, HDL Cholesterol 38, Cholesterol/HDL Ratio 2.3L, Thyroid Stimulating Hormone (TSH) 2.110, Free Thyroxine 1.30 Height (Feet): 5 Height (Inches): 7.00 Weight (Pounds): 206 General Appearance: WD/WN, no apparent distress Neck: supple Cardiovascular: normal rate Respiratory/Chest: lungs clear Abdomen: normal bowel sounds, soft Edema: no edema noted Arm (L), no edema noted Arm (R), no edema noted Leg (L), no edema noted Leg (R), no edema noted Pedal (L), no edema noted Pedal (R), no edema noted Generalized MANISH CARRASQUILLO May 13, 2017 23:21
[2017-05-14] VITALS (7 sets, daily range): BP systolic 116–158; BP diastolic 63–88
[2017-05-14] MEDS: NovoLOG Insulin Flexpen SUBQ SCH ×4 (06:30→21:00)
[2017-05-14] MEDS: Advair 100/50 Inhaler - 14 dose INH SCH ×2 (08:36→19:25)
[2017-05-14] MEDS: Norco 5mg/325mg tab ORAL PRN (08:55)
[2017-05-14] MEDS: Docusate 100mg cap ORAL SCH ×2 (08:56→17:27)
[2017-05-14] MEDS: Vitamin D 400 INTLU TAB ORAL SCH (08:58)
[2017-05-14] MEDS: Metoprolol Tartrate 50mg tab ORAL SCH ×2 (08:58→21:19)
[2017-05-14] MEDS: Nephrovite tab (Rena-Vite) ORAL SCH (08:58)
[2017-05-14] MEDS: Sensipar 30mg Tab ORAL SCH (09:01)
[2017-05-14] MEDS: Heparin 5000 units/ml inj SUBQ SCH ×2 (09:03→21:20)
[2017-05-14] MEDS: HYDROmorphone 1mg/ml Carpuject IVP PRN ×2 (11:04→20:01)
--- NOTE | 2017-05-14 11:10 | General Progress Note ---
Assessment/Plan Problem List: (1) End stage renal failure on dialysis ICD Codes: N18.6 - End stage renal disease; Z99.2 - Dependence on renal dialysis SNOMED: 102441133 (2) HTN (hypertension) ICD Codes: I10 - Essential (primary) hypertension SNOMED: 63595714 (3) Chest pain ICD Codes: R07.9 - Chest pain, unspecified SNOMED: 25567382 (4) Diabetes mellitus ICD Codes: E11.9 - Type 2 diabetes mellitus without complications SNOMED: 71213003 (5) CHF (congestive heart failure), NYHA class II ICD Codes: I50.9 - Heart failure, unspecified SNOMED: 851464135, 350390122 (6) PVD (peripheral vascular disease) ICD Codes: I73.9 - Peripheral vascular disease, unspecified SNOMED: 274027544 (7) Diabetic peripheral neuropathy ICD Codes: E11.42 - Type 2 diabetes mellitus with diabetic polyneuropathy SNOMED: 91269624, 024922491 Assessment/Plan Hs as tolerated will follow Subjective Date patient seen: May 13, 2017 Allergies: Coded Allergies: ASPIRIN (Verified Allergy, Unknown, 11/15/16) Subjective late entry pt was seen yesterday Objective Last 24 Hour Vital Signs Date Time Temp Pulse Resp B/P Pulse Ox O2 Delivery O2 Flow Rate FiO2 05/14/17 08:58 93 158/88 05/14/17 08:57 93 158/88 05/14/17 08:41 88 18 98 Room Air 05/14/17 08:39 89 18 98 Room Air 05/14/17 08:00 97.5 93 21 158/88 99 Room Air 05/14/17 04:00 89 05/14/17 03:55 98.3 91 19 130/78 95 Room Air 05/14/17 00:02 98.3 86 20 131/76 96 Room Air 05/14/17 00:00 84 05/13/17 20:56 103 137/87 05/13/17 20:00 106 05/13/17 19:59 98.6 103 21 137/87 95 Room Air 05/13/17 19:31 104 20 95 Room Air 21 05/13/17 19:31 104 20 95 Room Air 21 05/13/17 16:36 97.6 99 19 151/92 94 Room Air 05/13/17 16:00 96 8/10/17 12:15 98.9 92 20 132/79 100 Room Air 05/13/17 12:09 93 05/13/17 12:00 98 Intake and Output 05/13/17 05/14/17 19:00 07:00 Intake Total 340 ml Output Total 1700 ml Balance -1360 ml Intake Oral 340 ml Output Hemodialysis UF 1700 ml # Voids 1 # Bowel Movements 1 Height (Feet): 5 Height (Inches): 7.00 Weight (Pounds): 206 Cardiovascular: normal rate Respiratory/Chest: lungs clear LUNA LAGUNAS May 14, 2017 11:10
--- NOTE | 2017-05-14 11:12 | Nephrology Progress Note ---
Assessment/Plan Problem List: (1) End stage renal failure on dialysis (2) HTN (hypertension) (3) Chest pain (4) Diabetes mellitus (5) CHF (congestive heart failure), NYHA class II (6) PVD (peripheral vascular disease) (7) Diabetic peripheral neuropathy Plan HD in AM follow labs Subjective Subjective C/O eye itching Objective Objective Last 24 Hour Vital Signs Date Time Temp Pulse Resp B/P Pulse Ox O2 Delivery O2 Flow Rate FiO2 05/14/17 08:58 93 158/88 05/14/17 08:57 93 158/88 05/14/17 08:41 88 18 98 Room Air 21 05/14/17 08:39 89 18 98 Room Air 21 05/14/17 08:00 97.5 93 21 158/88 99 Room Air 05/14/17 04:00 89 05/14/17 03:55 98.3 91 19 130/78 95 Room Air 05/14/17 00:02 98.3 86 20 131/76 96 Room Air 05/14/17 00:00 84 05/13/17 20:56 103 137/87 05/13/17 20:00 106 05/13/17 19:59 98.6 103 21 137/87 95 Room Air 05/13/17 19:31 104 20 95 Room Air 21 05/13/17 19:31 104 20 95 Room Air 21 05/13/17 16:36 97.6 99 19 151/92 94 Room Air 05/13/17 16:00 96 05/13/17 12:15 98.9 92 20 132/79 100 Room Air 05/13/17 12:09 93 05/13/17 12:00 98 Intake and Output 05/13/17 05/14/17 19:00 07:00 Intake Total 340 ml Output Total 1700 ml Balance -1360 ml Intake Oral 340 ml Output Hemodialysis UF 1700 ml # Voids 1 # Bowel Movements 1 Height (Feet): 5 Height (Inches): 7.00 Weight (Pounds): 206 Cardiovascular: normal rate Respiratory/Chest: lungs clear Extremities: trace edema LUNA LAGUNAS May 14, 2017 11:11
[2017-05-14] MEDS ORDERED: Ciprofloxacin Opth Soln BOTH EYES SCH (13:00)
--- NOTE | 2017-05-14 13:07 | Pulmonology Progress Note ---
Assessment/Plan Problems: (1) Pleural effusion (2) End stage renal failure on dialysis (3) Diabetes mellitus (4) Anemia (5) CAD (coronary artery disease) Assessment/Plan cxr negative The myocardial perfusion scan demonstrates reversible perfusion defect involving the anterior wall suspicious for ischemia. Please correlate clinically. In addition there appears to be a septal defect that is fixed. LVEF estimated at 56%. HD by nephrology symptomatic treatment respiratory treatment all notes and meds reviewed. awaiting transfer to [facility] Subjective ROS Limited/Unobtainable: No Constitutional: Reports: no symptoms HEENT: Repors: no symptoms Respiratory: Reports: no symptoms Allergies: Coded Allergies: ASPIRIN (Verified Allergy, Unknown, 11/15/16) Objective Last 24 Hour Vital Signs Date Time Temp Pulse Resp B/P Pulse Ox O2 Delivery O2 Flow Rate FiO2 05/14/17 12:00 97.3 83 21 133/76 99 Room Air 05/14/17 08:58 93 158/88 05/14/17 08:57 93 158/88 05/14/17 08:41 88 18 98 Room Air 05/14/17 08:39 89 18 98 Room Air 21 05/14/17 08:00 97.5 93 21 158/88 99 Room Air 05/14/17 04:00 89 05/14/17 03:55 98.3 91 19 130/78 95 Room Air 05/14/17 00:02 98.3 86 20 131/76 96 Room Air 05/14/17 00:00 84 05/13/17 20:56 103 137/87 05/13/17 20:00 106 05/13/17 19:59 98.6 103 21 137/87 95 Room Air 05/13/17 19:31 104 20 95 Room Air 21 05/13/17 19:31 104 20 95 Room Air 21 05/13/17 16:36 97.6 99 19 151/92 94 Room Air 05/13/17 16:00 96 Intake and Output 05/13/17 05/14/17 19:00 07:00 Intake Total 340 ml Output Total 1700 ml Balance -1360 ml Intake Oral 340 ml Output Hemodialysis UF 1700 ml # Voids 1 # Bowel Movements 1 General Appearance: WD/WN HEENT: normocephalic, atraumatic Respiratory/Chest: chest wall non-tender, lungs clear Genitourinary: normal external genitalia Extremities: no cyanosis Skin: no rash Microbiology Date/Time Source Procedure Growth Status 05/12/17 04:20 Nasal Nares Left MRSA Culture - Final NO METHICILLIN RESISTANT STAPH AUREUS... Complete 05/12/17 04:20 Rectum VRE Culture - Final NO VANCOMYCIN RESISTANT ENTEROCOCCUS ... Complete Current Medications Medications (Trade) Dose Ordered Sig/Krissy Route PRN Reason Start Time Stop Time Status Last Admin Dose Admin Acetaminophen (Tylenol) 650 mg Q4H PRN ORAL Mild Pain/Temp > 100.5 05/12/17 04:00 06/11/17 03:59 Acetaminophen/ Hydrocodone Bitart ([place] 5/325) 1 tab Q6H PRN ORAL For Pain 05/12/17 04:00 05/19/17 03:59 05/14/17 08:55 Al Hydroxide/Mg Hydroxide (Mylanta II) 30 ml Q6H PRN ORAL dyspepsia 05/12/17 04:00 06/11/17 03:59 Albuterol Sulfate (Proventil MDI) 1 puff DAILY PRN INH Shortness of Breath 05/12/17 04:00 06/11/17 03:59 Alprazolam (Xanax) 2 mg TID PRN ORAL For Anxiety 05/12/17 04:00 05/19/17 03:59 Amlodipine Besylate (Norvasc) 10 mg DAILY ORAL 05/12/17 09:00 06/11/17 08:59 05/14/17 08:57 Atorvastatin Calcium (Lipitor) 80 mg BEDTIME ORAL 05/12/17 21:00 06/11/17 20:59 05/13/17 20:56 Cinacalcet (Sensipar) 90 mg DAILY ORAL 05/12/17 09:00 06/11/17 08:59 05/14/17 09:01 Ciprofloxacin (Ciloxan Opth Soln) 1 drop FOUR TIMES A DAY BOTH EYES 05/14/17 13:00 05/21/17 12:59 UNV Clopidogrel Bisulfate (Plavix) 75 mg DAILY ORAL 05/12/17 09:00 06/11/17 08:59 05/14/17 08:58 Dextrose (Dextrose 50%) STAT PRN IV Hypoglycemia 05/12/17 04:00 06/11/17 03:59 Diphenhydramine HCl (Benadryl) 25 mg Q4H PRN ORAL Itching 05/13/17 09:30 06/12/17 09:29 05/13/17 19:48 Docusate Sodium (Colace) 100 mg TWICE A DAY ORAL 05/12/17 09:00 06/11/17 08:59 05/14/17 08:56 Heparin Sodium (Porcine) (Heparin 5000 units/ml) 5,000 units EVERY 12 HOURS SUBQ 05/12/17 09:00 06/11/17 08:59 05/14/17 09:03 Hydromorphone HCl (Dilaudid) 1 mg Q4H PRN IVP Severe Pain (Pain Scale 7-10) 05/12/17 21:45 05/19/17 21:44 05/14/17 11:04 Insulin Aspart (NovoLOG) BEFORE MEALS AND HS SUBQ 05/12/17 06:30 06/11/17 06:29 05/12/17 07:07 Metoprolol Tartrate (Lopressor) 50 mg Q12HR ORAL 05/12/17 04:00 06/11/17 03:59 05/14/17 08:58 Salmeterol Xinafoate/ Fluticasone (Advair 100/50 Diskus) 1 puffs TWICE A DAY INH 05/12/17 09:00 06/11/17 08:59 05/14/17 08:36 Sevelamer Carbonate (Renvela) 800 mg THREE TIMES A DAY ORAL 05/12/17 09:00 06/11/17 08:59 05/14/17 08:58 Vitamin B Complex/ Vit C/Folic Acid (Nephrovite) 1 tab DAILY ORAL 05/12/17 15:00 06/11/17 14:59 05/14/17 08:58 Vitamin D (Vitamin D) 400 intlu DAILY ORAL 05/12/17 09:00 06/11/17 08:59 05/14/17 08:58 JUAN SPENCE May 14, 2017 13:07
--- NOTE | 2017-05-14 14:57 | Cardiac Electrophysiology PN ---
Assessment/Plan Status Narrative Findings: The myocardial perfusion scan demonstrates reversible perfusion defect involving the anterior wall suspicious for ischemia. Please correlate clinically. In addition there appears to be a septal defect that is fixed. LVEF estimated at 56%. Assessment/Plan 1. Chest pain in a patient with hx of CABG. Ruled out for myocardial infarction. Nuclear stress test showed anterior wall ischemia. Continue on Lipitor and Plavix 75 mg daily, Toprol 50 mg b.i.d. Echocardiogram on 05/12/2017 showed ejection fraction of 55%.Will transfer to [facility] for cardiac cath. 2. Hyperlipidemia, on Lipitor. 3. Hypertension, on Norvasc 10 mg daily,Lopressor 50 mg b.i.d. and HD. 4. Chronic obstructive pulmonary disease, on DuoNeb. SWETHA BECKER and [facility] transfer Ctr and Dr. Almanzar Subjective Subjective Comfortable with no chest pain or SOB.Stress test was very abnormal. Objective Last 24 Hour Vital Signs Date Time Temp Pulse Resp B/P Pulse Ox O2 Delivery O2 Flow Rate FiO2 05/14/17 12:00 97.3 83 21 133/76 99 Room Air 05/14/17 08:58 93 158/88 05/14/17 08:57 93 158/88 05/14/17 08:41 88 18 98 Room Air 05/14/17 08:39 89 18 98 Room Air 21 05/14/17 08:00 97.5 93 21 158/88 99 Room Air 05/14/17 04:00 89 05/14/17 03:55 98.3 91 19 130/78 95 Room Air 05/14/17 00:02 98.3 86 20 131/76 96 Room Air 05/14/17 00:00 84 05/13/17 20:56 103 137/87 05/13/17 20:00 106 05/13/17 19:59 98.6 103 21 137/87 95 Room Air 05/13/17 19:31 104 20 95 Room Air 21 05/13/17 19:31 104 20 95 Room Air 05/13/17 16:36 97.6 99 19 151/92 94 Room Air 05/13/17 16:00 96 Intake and Output 05/13/17 05/14/17 19:00 07:00 Intake Total 340 ml Output Total 1700 ml Balance -1360 ml Intake Oral 340 ml Output Hemodialysis UF 1700 ml # Voids 1 # Bowel Movements 1 Microbiology Date/Time Source Procedure Growth Status 05/12/17 04:20 Nasal Nares Left MRSA Culture - Final NO METHICILLIN RESISTANT STAPH AUREUS... Complete 05/12/17 04:20 Rectum VRE Culture - Final NO VANCOMYCIN RESISTANT ENTEROCOCCUS ... Complete Objective HEAD AND NECK: Shows mild JVD. LUNGS: Coarse rhonchi. CARDIOVASCULAR: Shows regular S1 and S2 with no gallop or murmur. Bypass site is intact. EXTREMITIES: A 1+ pitting edema. His dialysis access is in the left arm. LUISA JHAVERI May 14, 2017 14:57
[2017-05-14] MEDS: Ciprofloxacin Opth Soln BOTH EYES SCH ×2 (17:26→21:18)
[2017-05-14] MEDS: Albuterol 90mcg Inhaler 8gm INH PRN (19:58)
--- NOTE | 2017-05-14 21:00 | General Progress Note ---
Assessment/Plan Assessment/Plan chest pain loculated effusion renal failure stress test pos dw Dr Springer planning on transfer to [facility] for angiogram echo noted check cxr pulmonary fup dialysis dependent dvt and ulce prophylaxis awaiting tranfer to [facility] as arraged by Dr Springer Subjective Allergies: Coded Allergies: ASPIRIN (Verified Allergy, Unknown, 11/15/16) Subjective no chest pain or sob Objective Last 24 Hour Vital Signs Date Time Temp Pulse Resp B/P Pulse Ox O2 Delivery O2 Flow Rate FiO2 05/14/17 20:00 97.0 78 21 130/67 92 Room Air 05/14/17 19:25 97 18 94 Room Air 05/14/17 19:25 96 18 96 Room Air 21 05/14/17 16:05 89 05/14/17 16:00 97.5 90 22 132/78 99 Room Air 05/14/17 12:00 83 05/14/17 12:00 97.3 83 21 133/76 99 Room Air 05/14/17 08:58 93 158/88 05/14/17 08:57 93 158/88 05/14/17 08:41 88 18 98 Room Air 21 05/14/17 08:39 89 18 98 Room Air 21 05/14/17 08:00 97.5 93 21 158/88 99 Room Air 05/14/17 07:37 90 05/14/17 04:00 89 05/14/17 03:55 98.3 91 19 130/78 95 Room Air 05/14/17 00:02 98.3 86 20 131/76 96 Room Air 05/14/17 00:00 84 Intake and Output 05/13/17 05/14/17 19:00 07:00 Intake Total 340 ml Output Total 1700 ml Balance -1360 ml Intake Oral 340 ml Output Hemodialysis UF 1700 ml # Voids 1 # Bowel Movements 1 Height (Feet): 5 Height (Inches): 7.00 Weight (Pounds): 206 Neck: supple Cardiovascular: regular rhythm Respiratory/Chest: lungs clear Abdomen: soft MANISH CARRASQUILLO May 14, 2017 21:00
[2017-05-14] MEDS: Atorvastatin 80mg tab ORAL SCH (21:19)
[2017-05-15] VITALS (7 sets, daily range): BP systolic 117–143; BP diastolic 65–79
[2017-05-15] MEDS ORDERED: Heparin Sod 1000 units/ml 10ml IV ONE (06:00)
[2017-05-15] MEDS: HYDROmorphone 1mg/ml Carpuject IVP PRN ×2 (06:21→16:30)
[2017-05-15] MEDS: NovoLOG Insulin Flexpen SUBQ SCH ×4 (06:22→20:57)
[2017-05-15] MEDS: Advair 100/50 Inhaler - 14 dose INH SCH ×2 (07:03→19:00)
[2017-05-15] MEDS: Metoprolol Tartrate 50mg tab ORAL SCH ×2 (09:00→21:53)
[2017-05-15 10:14] LABS: MEAN CORPUSCULAR HEMOGLOBIN 33.5 PG (27.0-31.0); MEAN CORPUSCULAR HGB CONC 31.7 G/DL (32.0-36.0); MEAN CORPUSCULAR VOLUME 106 FL (80-99); MEAN PLATELET VOLUME 6.1 FL (6.5-10.1); PLATELET COUNT 294 K/UL (150-450); RED BLOOD COUNT 3.25 M/UL (4.70-6.10); RED CELL DISTRIBUTION WIDTH 16.3 % (11.6-14.8); WHITE BLOOD COUNT 3.3 K/UL (4.8-10.8)
[2017-05-15 10:27] LABS: CALCIUM 7.5 mg/dL (8.6-10.2); CREATININE 7.7 mg/dL (0.7-1.2); GLOMERULAR FILTRATION RATE 7.1 mL/min (>60); POTASSIUM 3.7 mEQ/L (3.4-4.9)
[2017-05-15 11:11] LABS: BAND NEUTROPHILS % (MANUAL) 1 % (0-8); EOSINOPHILS % (MANUAL) 18 % (0-3); LYMPHOCYTES % (MANUAL) 30 % (20-45); NEUTROPHILS % (MANUAL) 49 % (45-75); PLATELET MORPHOLOGY NORMAL; TOTAL CELLS COUNTED 100
[2017-05-15 11:12] LABS: ANISOCYTOSIS 1+; BASOPHILS % (MANUAL) 0 % (0-2); HYPOCHROMASIA 1+; PLATELET ESTIMATE ADEQUATE
[2017-05-15] MEDS: Nephrovite tab (Rena-Vite) ORAL SCH (12:38)
[2017-05-15] MEDS: Vitamin D 400 INTLU TAB ORAL SCH (12:38)
[2017-05-15] MEDS: Docusate 100mg cap ORAL SCH ×2 (12:38→17:33)
[2017-05-15] MEDS: Sensipar 30mg Tab ORAL SCH (12:38)
[2017-05-15] MEDS: Ciprofloxacin Opth Soln BOTH EYES SCH ×4 (12:38→21:53)
[2017-05-15] MEDS: Heparin 5000 units/ml inj SUBQ SCH ×2 (12:42→21:55)
--- NOTE | 2017-05-15 12:42 | Nephrology Progress Note ---
Assessment/Plan Problem List: (1) End stage renal failure on dialysis (2) HTN (hypertension) (3) Chest pain (4) Diabetes mellitus (5) CHF (congestive heart failure), NYHA class II (6) PVD (peripheral vascular disease) (7) Diabetic peripheral neuropathy Plan was dialyzed today Discussed with HD RN. less UF because of drop in BP. transfer to [facility] for cardiac cath. Subjective Subjective was dialyzed today Objective Objective Last 24 Hour Vital Signs Date Time Temp Pulse Resp B/P Pulse Ox O2 Delivery O2 Flow Rate FiO2 05/15/17 11:15 Room Air 05/15/17 08:10 Room Air 05/15/17 08:00 93 05/15/17 07:48 96.1 86 20 136/77 96 Room Air 05/15/17 07:08 84 17 97 Room Air 21 05/15/17 07:07 86 16 97 Room Air 21 05/15/17 04:00 96.3 85 19 135/79 96 Room Air 05/15/17 04:00 83 05/15/17 00:00 98.0 82 20 129/73 96 05/15/17 00:00 82 05/14/17 21:19 78 130/67 05/14/17 20:31 97.5 05/14/17 20:00 90 05/14/17 20:00 97.0 78 21 130/67 92 Room Air 05/14/17 19:25 97 18 94 Room Air 05/14/17 19:25 96 18 96 Room Air 21 05/14/17 16:05 89 05/14/17 16:00 97.5 90 22 132/78 99 Room Air Intake and Output 05/14/17 05/15/17 19:00 07:00 Intake Total 340 ml Balance 340 ml Intake Oral 340 ml # Voids 1 Laboratory Tests 05/15/17 09:00: White Blood Count 3.3L, Red Blood Count 3.25L, Hemoglobin 10.9L, Hematocrit 34.4L, Mean Corpuscular Volume 106H, Mean Corpuscular Hemoglobin 33.5H, Mean Corpuscular Hemoglobin Concent 31.7L, Red Cell Distribution Width 16.3H, Platelet Count 294, Mean Platelet Volume 6.1L, Neutrophils (%) (Auto) , Lymphocytes (%) (Auto) , Monocytes (%) (Auto) , Eosinophils (%) (Auto) , Basophils (%) (Auto) , Differential Total Cells Counted 100, Neutrophils % ( Manual) 49, Lymphocytes % (Manual) 30, Monocytes % (Manual) 2, Eosinophils % ( Manual) 18H, Basophils % (Manual) 0, Band Neutrophils 1, Platelet Estimate Adequate, Platelet Morphology Normal, Hypochromasia 1+, Anisocytosis 1+, Sodium Level 133L, Potassium Level 3.7, Chloride Level 95L, Carbon Dioxide Level 24, Anion Gap 14, Blood Urea Nitrogen 17, Creatinine 7.7H, Estimat Glomerular Filtration Rate 7.1, Glucose Level 124H, Calcium Level 7.5L Height (Feet): 5 Height (Inches): 7.00 Weight (Pounds): 206 Cardiovascular: normal rate Respiratory/Chest: lungs clear Extremities: trace edema LUNA LAGUNAS May 15, 2017 12:42
--- NOTE | 2017-05-15 14:16 | Cardiac Electrophysiology PN ---
Assessment/Plan Status Narrative Findings: The myocardial perfusion scan demonstrates reversible perfusion defect involving the anterior wall suspicious for ischemia. Please correlate clinically. In addition there appears to be a septal defect that is fixed. LVEF estimated at 56%. Assessment/Plan 1. Chest pain in a patient with hx of CABG. Ruled out for myocardial infarction. Nuclear stress test showed anterior wall ischemia. Awaiting transfer to [facility] for cardiac cath by Dr Naylor.Continue Lipitor, Plavix 75 mg daily, Toprol 50 mg b.i.d. Echocardiogram on 05/12/2017 showed ejection fraction of 55%. 2. Hyperlipidemia, on Lipitor. 3. Hypertension, on Norvasc 10 mg daily,Lopressor 50 mg b.i.d. and HD. 4. Chronic obstructive pulmonary disease, on DuoNeb. 5. ESRD. Had dialysis today 05/15/[address] Naylor and [facility] transfer Ctr Subjective Subjective Comfortable with no chest pain or SOB.Still awaiting Transfer to [facility]. Objective Last 24 Hour Vital Signs Date Time Temp Pulse Resp B/P Pulse Ox O2 Delivery O2 Flow Rate FiO2 05/15/17 12:00 97.0 87 20 119/65 96 Room Air 05/15/17 11:15 Room Air 05/15/17 08:10 Room Air 05/15/17 08:00 93 05/15/17 07:48 96.1 86 20 136/77 96 Room Air 05/15/17 07:08 84 17 97 Room Air 21 05/15/17 07:07 86 16 97 Room Air 21 05/15/17 04:00 96.3 85 19 135/79 96 Room Air 05/15/17 04:00 83 05/15/17 00:00 98.0 82 20 129/73 96 05/15/17 00:00 82 05/14/17 21:19 78 130/67 05/14/17 20:31 97.5 05/14/17 20:00 90 05/14/17 20:00 97.0 78 21 130/67 92 Room Air 05/14/17 19:25 97 18 94 Room Air 05/14/17 19:25 96 18 96 Room Air 21 05/14/17 16:05 89 05/14/17 16:00 97.5 90 22 132/78 99 Room Air Intake and Output 05/14/17 05/15/17 19:00 07:00 Intake Total 340 ml Balance 340 ml Intake Oral 340 ml # Voids 1 Laboratory Tests Test 05/15/17 09:00 White Blood Count 3.3 K/UL (4.8-10.8) L Red Blood Count 3.25 M/UL (4.70-6.10) L Hemoglobin 10.9 G/DL (14.2-18.0) L Hematocrit 34.4 % (42.0-52.0) L Mean Corpuscular Volume 106 FL (80-99) H Mean Corpuscular Hemoglobin 33.5 PG (27.0-31.0) H Mean Corpuscular Hemoglobin Concent 31.7 G/DL (32.0-36.0) L Red Cell Distribution Width 16.3 % (11.6-14.8) H Platelet Count 294 K/UL (150-450) Mean Platelet Volume 6.1 FL (6.5-10.1) L Neutrophils (%) (Auto) % (45.0-75.0) Lymphocytes (%) (Auto) % (20.0-45.0) Monocytes (%) (Auto) % (1.0-10.0) Eosinophils (%) (Auto) % (0.0-3.0) Basophils (%) (Auto) % (0.0-2.0) Differential Total Cells Counted 100 Neutrophils % (Manual) 49 % (45-75) Lymphocytes % (Manual) 30 % (20-45) Monocytes % (Manual) 2 % (1-10) Eosinophils % (Manual) 18 % (0-3) H Basophils % (Manual) 0 % (0-2) Band Neutrophils 1 % (0-8) Platelet Estimate Adequate Platelet Morphology Normal Hypochromasia 1+ Anisocytosis 1+ Sodium Level 133 mEQ/L (135-145) L Potassium Level 3.7 mEQ/L (3.4-4.9) Chloride Level 95 mEQ/L (98-107) L Carbon Dioxide Level 24 mEQ/L (20-30) Anion Gap 14 (5-15) Blood Urea Nitrogen 17 mg/dL (7-23) Creatinine 7.7 mg/dL (0.7-1.2) H Estimat Glomerular Filtration Rate 7.1 mL/min (>60) Glucose Level 124 mg/dL (74-106) H Calcium Level 7.5 mg/dL (8.6-10.2) L Objective HEAD AND NECK: Shows mild JVD. LUNGS: Coarse rhonchi. CARDIOVASCULAR: Shows regular S1 and S2 with no gallop or murmur. Bypass site is intact. EXTREMITIES: A 1+ pitting edema. Dialysis access is in the left arm. LUISA JHAVERI May 15, 2017 14:16
--- NOTE | 2017-05-15 15:50 | Pulmonology Progress Note ---
Assessment/Plan Problems: (1) Pleural effusion (2) End stage renal failure on dialysis (3) Diabetes mellitus (4) Anemia (5) CAD (coronary artery disease) Assessment/Plan HD by nephrology symptomatic treatment respiratory treatment all notes and meds reviewed. awaiting transfer to [facility] Subjective ROS Limited/Unobtainable: No Allergies: Coded Allergies: ASPIRIN (Verified Allergy, Unknown, 11/15/16) Objective Last 24 Hour Vital Signs Date Time Temp Pulse Resp B/P Pulse Ox O2 Delivery O2 Flow Rate FiO2 05/15/17 15:46 98.0 98 19 128/72 96 Room Air 05/15/17 12:00 97.0 87 20 119/65 96 Room Air 05/15/17 12:00 96 05/15/17 11:15 Room Air 05/15/17 08:10 Room Air 05/15/17 08:00 93 05/15/17 07:48 96.1 86 20 136/77 96 Room Air 05/15/17 07:08 84 17 97 Room Air 21 05/15/17 07:07 86 16 97 Room Air 21 05/15/17 04:00 96.3 85 19 135/79 96 Room Air 05/15/17 04:00 83 05/15/17 00:00 98.0 82 20 129/73 96 05/15/17 00:00 82 05/14/17 21:19 78 130/67 05/14/17 20:31 97.5 05/14/17 20:00 90 05/14/17 20:00 97.0 78 21 130/67 92 Room Air 05/14/17 19:25 97 18 94 Room Air 05/14/17 19:25 96 18 96 Room Air 21 05/14/17 16:05 89 05/14/17 16:00 97.5 90 22 132/78 99 Room Air Intake and Output 05/14/17 05/15/17 19:00 07:00 Intake Total 340 ml Balance 340 ml Intake Oral 340 ml # Voids 1 Objective General Appearance: WD/WN HEENT: normocephalic, atraumatic Respiratory/Chest: chest wall non-tender, lungs clear Breasts: no masses Cardiovascular: normal peripheral pulses, normal rate Abdomen: normal bowel sounds, soft, non tender Genitourinary: normal external genitalia Extremities: no cyanosis Skin: no rash 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, normal mood/affect Lymphatic: no groin adenopathy Laboratory Tests 05/15/17 09:00: White Blood Count 3.3L, Red Blood Count 3.25L, Hemoglobin 10.9L, Hematocrit 34.4L, Mean Corpuscular Volume 106H, Mean Corpuscular Hemoglobin 33.5H, Mean Corpuscular Hemoglobin Concent 31.7L, Red Cell Distribution Width 16.3H, Platelet Count 294, Mean Platelet Volume 6.1L, Neutrophils (%) (Auto) , Lymphocytes (%) (Auto) , Monocytes (%) (Auto) , Eosinophils (%) (Auto) , Basophils (%) (Auto) , Differential Total Cells Counted 100, Neutrophils % ( Manual) 49, Lymphocytes % (Manual) 30, Monocytes % (Manual) 2, Eosinophils % ( Manual) 18H, Basophils % (Manual) 0, Band Neutrophils 1, Platelet Estimate Adequate, Platelet Morphology Normal, Hypochromasia 1+, Anisocytosis 1+, Sodium Level 133L, Potassium Level 3.7, Chloride Level 95L, Carbon Dioxide Level 24, Anion Gap 14, Blood Urea Nitrogen 17, Creatinine 7.7H, Estimat Glomerular Filtration Rate 7.1, Glucose Level 124H, Calcium Level 7.5L Current Medications Medications (Trade) Dose Ordered Sig/Krissy Route PRN Reason Start Time Stop Time Status Last Admin Dose Admin Acetaminophen (Tylenol) 650 mg Q4H PRN ORAL Mild Pain/Temp > 100.5 05/12/17 04:00 06/11/17 03:59 Acetaminophen/ Hydrocodone Bitart ([place] 5/325) 1 tab Q6H PRN ORAL For Pain 05/12/17 04:00 05/19/17 03:59 05/14/17 08:55 Al Hydroxide/Mg Hydroxide (Mylanta II) 30 ml Q6H PRN ORAL dyspepsia 05/12/17 04:00 06/11/17 03:59 Albuterol Sulfate (Proventil MDI) 1 puff DAILY PRN INH Shortness of Breath 05/12/17 04:00 06/11/17 03:59 05/14/17 19:58 Alprazolam (Xanax) 2 mg TID PRN ORAL For Anxiety 05/12/17 04:00 05/19/17 03:59 Amlodipine Besylate (Norvasc) 10 mg DAILY ORAL 05/12/17 09:00 06/11/17 08:59 05/14/17 08:57 Atorvastatin Calcium (Lipitor) 80 mg BEDTIME ORAL 05/12/17 21:00 06/11/17 20:59 05/14/17 21:19 Cinacalcet (Sensipar) 90 mg DAILY ORAL 05/12/17 09:00 06/11/17 08:59 05/15/17 12:38 Ciprofloxacin 2 drop 2 drop FOUR TIMES A DAY BOTH EYES 05/14/17 18:00 05/21/17 17:59 05/15/17 12:38 Clopidogrel Bisulfate (Plavix) 75 mg DAILY ORAL 05/12/17 09:00 06/11/17 08:59 05/15/17 12:38 Dextrose (Dextrose 50%) STAT PRN IV Hypoglycemia 05/12/17 04:00 06/11/17 03:59 Diphenhydramine HCl (Benadryl) 25 mg Q4H PRN ORAL Itching 05/13/17 09:30 06/12/17 09:29 05/14/17 21:19 Docusate Sodium (Colace) 100 mg TWICE A DAY ORAL 05/12/17 09:00 06/11/17 08:59 05/15/17 12:38 Heparin Sodium (Porcine) (Heparin 5000 units/ml) 5,000 units EVERY 12 HOURS SUBQ 05/12/17 09:00 06/11/17 08:59 05/15/17 12:42 Hydromorphone HCl (Dilaudid) 1 mg Q4H PRN IVP Severe Pain (Pain Scale 7-10) 05/12/17 21:45 05/19/17 21:44 05/15/17 06:21 Insulin Aspart (NovoLOG) BEFORE MEALS AND HS SUBQ 05/12/17 06:30 06/11/17 06:29 05/12/17 07:07 Metoprolol Tartrate (Lopressor) 50 mg Q12HR ORAL 05/12/17 04:00 06/11/17 03:59 05/14/17 21:19 Salmeterol Xinafoate/ Fluticasone (Advair 100/50 Diskus) 1 puffs TWICE A DAY INH 05/12/17 09:00 06/11/17 08:59 05/15/17 07:03 Sevelamer Carbonate (Renvela) 800 mg THREE TIMES A DAY ORAL 05/12/17 09:00 06/11/17 08:59 05/15/17 12:38 Sodium Chloride (Sodium Chloride 1000ml bag) 1,000 ml @ 500 mls/hr Q2H PRN IVLG sbp<90 during hd 05/15/17 06:00 05/15/17 23:59 Vitamin B Complex/ Vit C/Folic Acid (Nephrovite) 1 tab DAILY ORAL 05/12/17 15:00 06/11/17 14:59 05/15/17 12:38 Vitamin D (Vitamin D) 400 intlu DAILY ORAL 05/12/17 09:00 06/11/17 08:59 05/15/17 12:38 JUAN SPENCE May 15, 2017 15:50
[2017-05-15] MEDS: Albuterol 90mcg Inhaler 8gm INH PRN (18:54)
[2017-05-15] MEDS: Atorvastatin 80mg tab ORAL SCH (21:53)
--- NOTE | 2017-05-15 23:56 | General Progress Note ---
Assessment/Plan Assessment/Plan chest pain effusion renal failure stress test pos dw Dr Springer planning on transfer to [facility] for angiogram echo noted dialysis dependent dvt and ulce prophylaxis awaiting transfer to [facility] as arraged by Dr Springer Subjective Allergies: Coded Allergies: ASPIRIN (Verified Allergy, Unknown, 11/15/16) Subjective no chest pain or sob getting dilaysis Objective Last 24 Hour Vital Signs Date Time Temp Pulse Resp B/P Pulse Ox O2 Delivery O2 Flow Rate FiO2 05/15/17 23:52 98.2 85 19 117/71 94 Room Air 05/15/17 21:53 100 143/76 05/15/17 20:01 98.6 96 20 143/76 95 Room Air 05/15/17 20:00 95 05/15/17 18:54 98 18 95 Room Air 21 05/15/17 18:54 97 18 94 Room Air 21 05/15/17 16:00 96 05/15/17 15:46 98.0 98 19 128/72 96 Room Air 05/15/17 12:00 97.0 86 20 119/74 96 Room Air 05/15/17 12:00 96 05/15/17 11:15 Room Air 05/15/17 08:10 Room Air 05/15/17 08:00 93 05/15/17 07:48 96.1 86 20 136/77 96 Room Air 05/15/17 07:08 84 17 97 Room Air 21 05/15/17 07:07 86 16 97 Room Air 21 05/15/17 04:00 96.3 85 19 135/79 96 Room Air 05/15/17 04:00 83 05/15/17 00:00 98.0 82 20 129/73 96 05/15/17 00:00 82 Intake and Output 05/14/17 05/15/17 19:00 07:00 Intake Total 340 ml Balance 340 ml Intake Oral 340 ml # Voids 1 Laboratory Tests 05/15/17 09:00: White Blood Count 3.3L, Red Blood Count 3.25L, Hemoglobin 10.9L, Hematocrit 34.4L, Mean Corpuscular Volume 106H, Mean Corpuscular Hemoglobin 33.5H, Mean Corpuscular Hemoglobin Concent 31.7L, Red Cell Distribution Width 16.3H, Platelet Count 294, Mean Platelet Volume 6.1L, Neutrophils (%) (Auto) , Lymphocytes (%) (Auto) , Monocytes (%) (Auto) , Eosinophils (%) (Auto) , Basophils (%) (Auto) , Differential Total Cells Counted 100, Neutrophils % ( Manual) 49, Lymphocytes % (Manual) 30, Monocytes % (Manual) 2, Eosinophils % ( Manual) 18H, Basophils % (Manual) 0, Band Neutrophils 1, Platelet Estimate Adequate, Platelet Morphology Normal, Hypochromasia 1+, Anisocytosis 1+, Sodium Level 133L, Potassium Level 3.7, Chloride Level 95L, Carbon Dioxide Level 24, Anion Gap 14, Blood Urea Nitrogen 17, Creatinine 7.7H, Estimat Glomerular Filtration Rate 7.1, Glucose Level 124H, Calcium Level 7.5L Height (Feet): 5 Height (Inches): 7.00 Weight (Pounds): 206 General Appearance: WD/WN, no apparent distress Cardiovascular: normal rate Respiratory/Chest: lungs clear Abdomen: soft MANISH CARRASQUILLO May 15, 2017 23:56
[2017-05-16 03:54] VITALS: BP 145/76
[2017-05-16] MEDS: NovoLOG Insulin Flexpen SUBQ SCH ×4 (06:30→21:00)
[2017-05-16 07:30] VITALS: BP 144/77
[2017-05-16] MEDS: Advair 100/50 Inhaler - 14 dose INH SCH ×2 (08:03→20:33)
[2017-05-16] MEDS: Vitamin D 400 INTLU TAB ORAL SCH (09:15)
[2017-05-16] MEDS: Metoprolol Tartrate 50mg tab ORAL SCH ×2 (09:15→21:53)
[2017-05-16] MEDS: Docusate 100mg cap ORAL SCH ×2 (09:15→12:36)
[2017-05-16] MEDS: Nephrovite tab (Rena-Vite) ORAL SCH (09:15)
[2017-05-16] MEDS: Ciprofloxacin Opth Soln BOTH EYES SCH ×4 (09:15→21:52)
[2017-05-16] MEDS: Sensipar 30mg Tab ORAL SCH (09:16)
[2017-05-16] MEDS: Heparin 5000 units/ml inj SUBQ SCH ×2 (09:23→21:00)
--- NOTE | 2017-05-16 10:51 | Pulmonology Progress Note ---
Assessment/Plan Problems: (1) Pleural effusion (2) End stage renal failure on dialysis (3) Diabetes mellitus (4) Anemia (5) CAD (coronary artery disease) Assessment/Plan no new complains HD by nephrology symptomatic treatment respiratory treatment continue current meds all notes and meds reviewed. awaiting transfer to [facility] Subjective Constitutional: Reports: no symptoms HEENT: Repors: no symptoms Respiratory: Reports: no symptoms Cardiovascular: Reports: no symptoms Gastrointestinal/Abdominal: Reports: no symptoms Allergies: Coded Allergies: ASPIRIN (Verified Allergy, Unknown, 11/15/16) Objective Last 24 Hour Vital Signs Date Time Temp Pulse Resp B/P Pulse Ox O2 Delivery O2 Flow Rate FiO2 05/16/17 09:16 91 144/81 05/16/17 09:15 91 144/81 05/16/17 07:56 86 18 96 Room Air 21 05/16/17 07:55 86 16 95 Room Air 21 05/16/17 07:30 97.3 86 20 144/77 96 Room Air 05/16/17 04:00 89 05/16/17 03:54 98.3 81 20 145/76 96 Room Air 05/16/17 00:00 79 05/15/17 23:52 98.2 85 19 117/71 94 Room Air 05/15/17 21:53 100 143/76 05/15/17 20:01 98.6 96 20 143/76 95 Room Air 05/15/17 20:00 95 05/15/17 18:54 98 18 95 Room Air 21 05/15/17 18:54 97 18 94 Room Air 21 05/15/17 16:00 96 05/15/17 15:46 98.0 98 19 128/72 96 Room Air 05/15/17 12:00 97.0 86 20 119/74 96 Room Air 05/15/17 12:00 96 05/15/17 11:15 Room Air Intake and Output 05/15/17 05/16/17 19:00 07:00 Intake Total 320 ml Output Total 1025 ml Balance -705 ml Intake Oral 320 ml Output Hemodialysis UF 1025 ml Objective General Appearance: WD/WN HEENT: normocephalic, atraumatic Respiratory/Chest: chest wall non-tender, lungs clear Breasts: no masses Cardiovascular: normal peripheral pulses, normal rate Abdomen: normal bowel sounds, soft, non tender Genitourinary: normal external genitalia Extremities: no cyanosis Skin: no rash 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, normal mood/affect Lymphatic: no groin adenopathy Current Medications Medications (Trade) Dose Ordered Sig/Krissy Route PRN Reason Start Time Stop Time Status Last Admin Dose Admin Acetaminophen (Tylenol) 650 mg Q4H PRN ORAL Mild Pain/Temp > 100.5 05/12/17 04:00 06/11/17 03:59 Acetaminophen/ Hydrocodone Bitart ([place] 5/325) 1 tab Q6H PRN ORAL For Pain 05/12/17 04:00 05/19/17 03:59 05/14/17 08:55 Al Hydroxide/Mg Hydroxide (Mylanta II) 30 ml Q6H PRN ORAL dyspepsia 05/12/17 04:00 06/11/17 03:59 Albuterol Sulfate (Proventil MDI) 1 puff DAILY PRN INH Shortness of Breath 05/12/17 04:00 06/11/17 03:59 05/15/17 18:54 Alprazolam (Xanax) 2 mg TID PRN ORAL For Anxiety 05/12/17 04:00 05/19/17 03:59 Amlodipine Besylate (Norvasc) 10 mg DAILY ORAL 05/12/17 09:00 06/11/17 08:59 05/16/17 09:16 Atorvastatin Calcium (Lipitor) 80 mg BEDTIME ORAL 05/12/17 21:00 06/11/17 20:59 05/15/17 21:53 Cinacalcet (Sensipar) 90 mg DAILY ORAL 05/12/17 09:00 06/11/17 08:59 05/16/17 09:16 Ciprofloxacin (Ciloxan Opth Soln) 2 drop FOUR TIMES A DAY BOTH EYES 05/14/17 18:00 05/21/17 17:59 05/16/17 09:15 Clopidogrel Bisulfate (Plavix) 75 mg DAILY ORAL 05/12/17 09:00 06/11/17 08:59 05/15/17 12:38 Dextrose (Dextrose 50%) STAT PRN IV Hypoglycemia 05/12/17 04:00 06/11/17 03:59 Diphenhydramine HCl (Benadryl) 25 mg Q4H PRN ORAL Itching 05/13/17 09:30 06/12/17 09:29 05/14/17 21:19 Docusate Sodium (Colace) 100 mg TWICE A DAY ORAL 05/12/17 09:00 06/11/17 08:59 05/16/17 09:15 Heparin Sodium (Porcine) (Heparin 5000 units/ml) 5,000 units EVERY 12 HOURS SUBQ 05/12/17 09:00 06/11/17 08:59 05/16/17 09:23 Hydromorphone HCl (Dilaudid) 1 mg Q4H PRN IVP Severe Pain (Pain Scale 7-10) 05/12/17 21:45 05/19/17 21:44 05/15/17 16:30 Insulin Aspart (NovoLOG) BEFORE MEALS AND HS SUBQ 05/12/17 06:30 06/11/17 06:29 05/12/17 07:07 Metoprolol Tartrate (Lopressor) 50 mg Q12HR ORAL 05/12/17 04:00 06/11/17 03:59 05/16/17 09:15 Salmeterol Xinafoate/ Fluticasone (Advair 100/50 Diskus) 1 puffs TWICE A DAY INH 05/12/17 09:00 06/11/17 08:59 05/16/17 08:03 Sevelamer Carbonate (Renvela) 800 mg THREE TIMES A DAY ORAL 05/12/17 09:00 06/11/17 08:59 05/16/17 09:15 Vitamin B Complex/ Vit C/Folic Acid (Nephrovite) 1 tab DAILY ORAL 05/12/17 15:00 06/11/17 14:59 05/16/17 09:15 Vitamin D (Vitamin D) 400 intlu DAILY ORAL 05/12/17 09:00 06/11/17 08:59 05/16/17 09:15 JUAN SPENCE May 16, 2017 10:50
[2017-05-16 11:30] VITALS: BP 136/83
--- NOTE | 2017-05-16 12:25 | Nephrology Progress Note ---
Assessment/Plan Problem List: (1) End stage renal failure on dialysis (2) HTN (hypertension) (3) Chest pain (4) Diabetes mellitus (5) CHF (congestive heart failure), NYHA class II (6) PVD (peripheral vascular disease) (7) Diabetic peripheral neuropathy Plan Next HD on 05/18 [facility] Subjective Subjective feels ok Objective Objective Last 24 Hour Vital Signs Date Time Temp Pulse Resp B/P Pulse Ox O2 Delivery O2 Flow Rate FiO2 05/16/17 11:30 97.7 81 20 136/83 97 Room Air 05/16/17 09:16 91 144/81 05/16/17 09:15 91 144/81 05/16/17 08:00 86 05/16/17 07:56 86 18 96 Room Air 21 05/16/17 07:55 86 16 95 Room Air 21 05/16/17 07:30 97.3 86 20 144/77 96 Room Air 05/16/17 04:00 89 05/16/17 03:54 98.3 81 20 145/76 96 Room Air 05/16/17 00:00 79 05/15/17 23:52 98.2 85 19 117/71 94 Room Air 05/15/17 21:53 100 143/76 05/15/17 20:01 98.6 96 20 143/76 95 Room Air 05/15/17 20:00 95 05/15/17 18:54 98 18 95 Room Air 21 05/15/17 18:54 97 18 94 Room Air 21 05/15/17 16:00 96 05/15/17 15:46 98.0 98 19 128/72 96 Room Air Intake and Output 05/15/17 05/16/17 19:00 07:00 Intake Total 320 ml Output Total 1025 ml Balance -705 ml Intake Oral 320 ml Output Hemodialysis UF 1025 ml Height (Feet): 5 Height (Inches): 7.00 Weight (Pounds): 206 Cardiovascular: normal rate Respiratory/Chest: lungs clear Extremities: other - no edema LUNA LAGUNAS May 16, 2017 12:25
--- NOTE | 2017-05-16 12:31 | Cardiac Electrophysiology PN ---
Assessment/Plan Status Narrative Findings: The myocardial perfusion scan demonstrates reversible perfusion defect involving the anterior wall suspicious for ischemia. Please correlate clinically. In addition there appears to be a septal defect that is fixed. LVEF estimated at 56%. Assessment/Plan 1. Chest pain in a patient with hx of CABG. Ruled out for myocardial infarction. Nuclear stress test showed anterior wall ischemia. Awaiting transfer to [facility] for cardiac cath by Dr. Naylor. Continue Lipitor, Plavix 75 mg daily, Toprol 50 mg b.i.d. Echo on 05/12/2017 showed EF55%. 2. Hyperlipidemia, on Lipitor. 3. Hypertension, on Norvasc 10 mg daily,Lopressor 50 mg b.i.d. and HD. 4. Chronic obstructive pulmonary disease, on DuoNeb. 5. ESRD. 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 Objective Last 24 Hour Vital Signs Date Time Temp Pulse Resp B/P Pulse Ox O2 Delivery O2 Flow Rate FiO2 05/16/17 11:30 97.7 81 20 136/83 97 Room Air 05/16/17 09:16 91 144/81 05/16/17 09:15 91 144/81 05/16/17 08:00 86 05/16/17 07:56 86 18 96 Room Air 05/16/17 07:55 86 16 95 Room Air 05/16/17 07:30 97.3 86 20 144/77 96 Room Air 05/16/17 04:00 89 05/16/17 03:54 98.3 81 20 145/76 96 Room Air 05/16/17 00:00 79 05/15/17 23:52 98.2 85 19 117/71 94 Room Air 05/15/17 21:53 100 143/76 05/15/17 20:01 98.6 96 20 143/76 95 Room Air 05/15/17 20:00 95 05/15/17 18:54 98 18 95 Room Air 21 05/15/17 18:54 97 18 94 Room Air 21 05/15/17 16:00 96 05/15/17 15:46 98.0 98 19 128/72 96 Room Air Intake and Output 05/15/17 05/16/17 19:00 07:00 Intake Total 320 ml Output Total 1025 ml Balance -705 ml Intake Oral 320 ml Output Hemodialysis UF 1025 ml Objective HEAD AND NECK: Shows mild JVD. LUNGS: Clear CARDIOVASCULAR: Regular S1 and S2 with no gallop or murmur.CABG site is healed EXTREMITIES: A 1+ pitting edema. Dialysis access is in the left arm. LUISA JHAVERI May 16, 2017 12:31
[2017-05-16] MEDS: HYDROmorphone 1mg/ml Carpuject IVP PRN (12:38)
[2017-05-16 15:29] VITALS: BP 109/70
[2017-05-16 19:50] VITALS: BP 120/74
--- NOTE | 2017-05-16 21:04 | General Progress Note ---
Assessment/Plan Assessment/Plan chest pain effusion renal failure stress test pos dw Dr Springer planning on transfer to [facility] for angiogram echo noted dialysis dependent dvt and ulce prophylaxis awaiting transfer to [facility] as arranged by Dr Springer Subjective Allergies: Coded Allergies: ASPIRIN (Verified Allergy, Unknown, 11/15/16) Subjective no chest pain or sob awaiting transfer to [facility] Objective Last 24 Hour Vital Signs Date Time Temp Pulse Resp B/P Pulse Ox O2 Delivery O2 Flow Rate FiO2 05/16/17 20:00 86 05/16/17 19:50 98.6 86 20 120/74 94 Room Air 05/16/17 19:30 87 16 99 Room Air 21 05/16/17 19:30 87 16 97 Room Air 21 05/16/17 16:00 85 05/16/17 15:29 97.7 84 20 109/70 95 Room Air 05/16/17 12:00 76 05/16/17 11:30 97.7 81 20 136/83 97 Room Air 05/16/17 09:16 91 144/81 05/16/17 09:15 91 144/81 05/16/17 08:00 86 05/16/17 07:56 86 18 96 Room Air 21 05/16/17 07:55 86 16 95 Room Air 21 05/16/17 07:30 97.3 86 20 144/77 96 Room Air 05/16/17 04:00 89 05/16/17 03:54 98.3 81 20 145/76 96 Room Air 05/16/17 00:00 79 05/15/17 23:52 98.2 85 19 117/71 94 Room Air 05/15/17 21:53 100 143/76 Intake and Output 05/15/17 05/16/17 19:00 07:00 Intake Total 320 ml Output Total 1025 ml Balance -705 ml Intake Oral 320 ml Output Hemodialysis UF 1025 ml Height (Feet): 5 Height (Inches): 7.00 Weight (Pounds): 206 General Appearance: WD/WN Neck: supple Cardiovascular: normal rate Respiratory/Chest: lungs clear Abdomen: soft 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
[2017-05-16] MEDS: Atorvastatin 80mg tab ORAL SCH (21:52)
[2017-05-16 21:53] VITALS: BP 124/72
--- NOTE | 2017-05-17 08:22 | Discharge Summary ---
Discharge Summary Hospital Course Date of Admission May 12, 2017 at 01:35 Date of Discharge May 16, 2017 at 22:58 Admitting Diagnosis HPI Forrest Hubbard is a 67 year old male who was admitted on May 12, 2017 at 01:35 for Chest Pain Hospital Course dc summary #[id number] Discharge Discharge Disposition Patient was transferred to [facility] for cardiac intervention(cardiac cath) Discharge Diagnoses: Discharge Instructions Discharge Instructions Special Instructions I have been assigned to complete a D/C Summary on this account. I was not involved in the patient management Soraya Torres NP ([place]te[place]) May 17, 2017 08:22
[2017-05-17] MEDS ORDERED: ATORVASTATIN CA80 MG ORAL (08:27)
--- NOTE | 2017-05-17 08:28 | Diagnostic Imaging Report ---
Indication:Abnormal chest x-ray. Technique: Grayscale and duplex Doppler imaging of the chest performed. Comparison: None Findings: The chest was examined bilaterally. There is no pleural effusion demonstrated on either side. Impression: No pleural effusion bilaterally
--- NOTE | 2017-05-17 08:45 | Discharge Summary 2 SIG ---
DATE OF ADMISSION: 05/12/2017 DATE OF DISCHARGE: 05/16/2017 The patient was admitted under Dr. Almanzar. REASON FOR HOSPITALIZATION: The patient is a 67 years old male with past medical history significant for end-stage renal disease, on hemodialysis, coronary artery disease with coronary artery bypass graft, hypertension, diabetes, and hyperlipidemia was initially brought up in [place] with complaint of chest pain, which during hemodialysis. The patient was evaluated in the emergency department in [place] and transferred to [facility] for further management. Chest x-ray revealed pleural effusion. The patient admitted for further management. ADMITTING DIAGNOSES: 1. Chest pain, rule out acute coronary syndrome. 2. Pleural effusion. 3. End-stage renal disease, on hemodialysis. 4. Diabetes. 5. Coronary artery disease with history of coronary artery bypass graft. 6. Hypertension. 7. Hyperlipidemia. HOSPITAL STAY: The patient admitted to telemetry floor. Cardiology, Pulmonology, and Nephrology consult were requested. The patient undergone 2D echo which revealed preserved ejection fraction of 55%, right ventricular systolic pressure of 15 in addition to moderate left ventricular hypertrophy. Serial troponins were negative. EKG revealed no acute ischemic changes. The patient ruled out for acute myocardial infarction by service desk associate per protocol and subsequently the patient undergone nuclear stress test. Nuclear stress test revealed myocardial ischemia involving the anterior wall. Fixed septal defect likely myocardial infarct. Ejection fraction 56%. The patient was placed on waiting list for transfer to [place] to [facility] for cardiac catheterization. Lipid panel was stable. The patient was continued on Plavix, statin, and beta broderick. Blood pressure was controlled with calcium channel broderick and beta broderick. Venous duplex bilateral lower extremity was negative. Blood sugar was managed with sliding scale of insulin and was stable. Hemodialysis was arranged as per Nephrology. Renal parameters and electrolytes were closely monitored. The patient was on DVT and GI prophylaxis. Supplemental oxygen provided as needed to keep pulse oximetry above 92%. Pulmonary toilet provided as needed. Follow up chest x-ray revealed pleural thickening on the left side noted on the prior study. No infiltrate. Transfer was arranged to [facility] for cardiac catheterization on 05/16/2017 and the patient subsequently was transferred for cardiac intervention. FINAL DIAGNOSES: Include: 1. Chest pain related to myocardial ischemia. 2. Myocardial ischemia of anterior wall. 3. Coronary artery disease. 4. History of coronary artery bypass graft. 5. Diabetes mellitus. 6. End-stage renal disease, on hemodialysis. 7. Hypertension. 8. Hyperlipidemia. DISCHARGE MEDICATIONS: See medication reconciliation list. DISCHARGE INSTRUCTIONS: The patient discharged to [facility] for cardiac catheterization and further follow up with the service desk associate and medical doctor at the admitting hospital. Jacques Almanzar M.D. I have been assigned to dictate discharge summary on this account and I was not involved in the patient's management. Soraya [facility] N.PDominique DR: VALENTIN JOB#: [id number] CC:
== END 2017-05-16 22:58 | disposition short-term general hospital (02) | DRG 302 ==
LOC: 2E 05-12 01:35
PROC: 5A1D60Z (ICD-10-PCS; principal; 2017-05-13)
DX: I25.119 Atherosclerotic heart disease of native coronary artery with unspecified angina pectoris (principal); N18.6 End stage renal disease; I12.0 Hypertensive chronic kidney disease with stage 5 chronic kidney disease or end stage renal disease; E11.22 Type 2 diabetes mellitus with diabetic chronic kidney disease; J44.9 Chronic obstructive pulmonary disease, unspecified; D64.9 Anemia, unspecified; Z99.2 Dependence on renal dialysis; Z79.4 Long term (current) use of insulin; Z95.1 Presence of aortocoronary bypass graft; E78.5 Hyperlipidemia, unspecified; Z88.6 Allergy status to analgesic agent; Z95.5 Presence of coronary angioplasty implant and graft; Z79.02 Long term (current) use of antithrombotics/antiplatelets; I73.9 Peripheral vascular disease, unspecified; I50.9 Heart failure, unspecified; E11.42 Type 2 diabetes mellitus with diabetic polyneuropathy
CPT/HCPCS: 36415; 71010; 76604; 78452; 80048; 80053; 80061; 82962; 83036; 83880; 84100; 84439; 84443; 84484; 85007; 85025; 87081; 93017; 93306; 93970; 94640; J1815

== ENCOUNTER 2017-10-31 20:39 | Inpatient (IN) | payer MEDICARE, OTHER ==
[~2017-10-31] VITALS: Ht 170.2 cm; Wt 86.3 kg
[~2017-10-31 20:39] MED LIST changes: +ADVAIR 100-501 EACH INH; +AMLODIPINE BESY10 MG ORAL; +ATORVASTATIN CA80 MG ORAL; +METOPROLOL SUCC50 MG ORAL; +NORCO 5-325 TA1 EACH ORAL; +OXYCODONE HCL30 MG ORAL; +PROAIR HFA8.5 GM INH; +VITAMIN D-40400 UNIT ORAL; +XANAX2 MG ORAL
[2017-11-01] VITALS: BP 140/77
[2017-11-01] MEDS ORDERED: ASPIR 8181 MG ORAL (00:58)
[2017-11-01] MEDS ORDERED: COREG12.5 MG ORAL (00:58)
[2017-11-01] MEDS: NovoLOG Insulin Flexpen SUBQ SCH ×4 (06:18→20:51)
[2017-11-01 08:00] VITALS: BP 151/82
[2017-11-01] MEDS ORDERED: Carvedilol 12.5mg tab ORAL SCH (09:00)
[2017-11-01] MEDS: Aspirin Baby 81mg ORAL SCH (10:01)
[2017-11-01] MEDS: Metoprolol Succinate XL 50mg tab ORAL SCH ×2 (10:02→18:57)
[2017-11-01] MEDS: Heparin 5000 units/ml inj SUBQ SCH ×2 (10:06→20:51)
--- NOTE | 2017-11-01 10:56 | Cardiac Electrophysiology PN ---
Subjective Subjective [id number] Objective Last 24 Hour Vital Signs Date Time Temp Pulse Resp B/P (MAP) Pulse Ox O2 Delivery O2 Flow Rate FiO2 11/01/17 10:02 106 151/82 11/01/17 10:02 106 151/82 11/01/17 10:02 106 151/82 11/01/17 08:00 106 11/01/17 08:00 97.5 105 20 151/82 99 Nasal Cannula 2.0 11/01/17 04:00 108 11/01/17 00:00 98.2 96 20 140/77 100 Nasal Cannula 2.0 11/01/17 00:00 97 Laboratory Tests Test 11/01/17 10:00 White Blood Count Pending Red Blood Count Pending Hemoglobin Pending Hematocrit Pending Mean Corpuscular Volume Pending Mean Corpuscular Hemoglobin Pending Mean Corpuscular Hemoglobin Concent Pending Red Cell Distribution Width Pending Platelet Count Pending Mean Platelet Volume Pending Neutrophils (%) (Auto) Pending Lymphocytes (%) (Auto) Pending Monocytes (%) (Auto) Pending Eosinophils (%) (Auto) Pending Basophils (%) (Auto) Pending Sodium Level Pending Potassium Level Pending Chloride Level Pending Carbon Dioxide Level Pending Blood Urea Nitrogen Pending Creatinine Pending Estimat Glomerular Filtration Rate Pending Glucose Level Pending Calcium Level Pending Phosphorus Level Pending Magnesium Level Pending Troponin I Pending LUISA JHAVERI Nov 01, 2017 10:56
[2017-11-01 11:10] LABS: BASOPHILS % (AUTO) 1.1 % (0.0-2.0); HEMATOCRIT 32.9 % (42.0-52.0); LYMPHOCYTES % (AUTO) 14.1 % (20.0-45.0); MEAN CORPUSCULAR VOLUME 99 FL (80-99); MONOCYTES % (AUTO) 6.1 % (1.0-10.0); NEUTROPHILS % (AUTO) 73.7 % (45.0-75.0); PLATELET COUNT 259 K/UL (150-450); RED BLOOD COUNT 3.33 M/UL (4.70-6.10); RED CELL DISTRIBUTION WIDTH 14.1 % (11.6-14.8); WHITE BLOOD COUNT 5.2 K/UL (4.8-10.8)
[2017-11-01 12:00] VITALS: BP 125/72
[2017-11-01 12:00] LABS: ANION GAP 12 mmol/L (5-15); BLOOD UREA NITROGEN 33 mg/dL (7-18); CALCIUM 7.8 MG/DL (8.5-10.1); CARBON DIOXIDE 26 MMOL/L (21-32); CHLORIDE 97 MMOL/L (98-107); CREATININE 8.1 MG/DL (0.55-1.30); PHOSPHORUS 4.7 MG/DL (2.5-4.9); SODIUM 135 MMOL/L (136-145)
--- NOTE | 2017-11-01 12:23 | Diagnostic Imaging Report ---
Indication: Left hand pain Technique: 3 views left hand Comparison: none Findings: There is an old ununited fracture the distal ulna. No definite acute fractures. No dislocations. Joint spaces are preserved. There are vascular calcifications. Impression: No acute process
--- NOTE | 2017-11-01 12:24 | Diagnostic Imaging Report ---
Indication: Chest pain Technique: One view of the chest Comparison: 05/13/2017 Findings: Lateral pleural thickening on the left is probably chronic. There is evidence of some scalloping of the left hemidiaphragm. No definite acute infiltrates, effusions, or congestion. The heart size is normal. There is evidence of prior CABG Impression: No acute process
--- NOTE | 2017-11-01 13:28 | Consultation ---
History of Present Illness General Date patient seen: Nov 01, 2017 Reason for Consultation: chest pain Present Illness HPI 67 year old male with hx of ESRF, HTN, DM, CAD, CABG, presented to [facility] with CC of acute chest pain. He was initially evaluated in ER at [place] and then transferred to [facility] for further management. Pt still c/o chest pain and asking for Dilaudid. He looks comfortable and in no acute distress. He was at [facility] last year and had cardiac stress studies with imagining done, which were negative. Allergies: Coded Allergies: No Known Allergies (Unverified , 11/01/17) Medication History Scheduled Albuterol Sulfate* (Proair Hfa*), 1 PUFF INH DAILY, (Reported) Amlodipine Besylate* (Amlodipine Besylate*), 10 MG ORAL DAILY, (Reported) Aspirin* (Aspir 81*), 81 MG ORAL DAILY, (Reported) Atorvastatin Calcium* (Lipitor*), 80 MG ORAL BEDTIME Carvedilol (Coreg), 12.5 MG ORAL EVERY 12 HOURS, (Reported) Cholecalciferol (Vitamin D3) (Vitamin D-400*), 400 UNITS ORAL DAILY, (Reported) Cinacalcet Hcl (Sensipar), 90 MG PO DAILY, (Reported) Clopidogrel Bisulfate* (Plavix*), 75 MG ORAL DAILY, (Reported) Fluticasone/Salmeterol (Advair 100-50 Diskus), 1 PUFF INH EVERY 12 HOURS, ( Reported) Insulin Regular, Human* (Novolin R*), 0 SUBQ AC, (Reported) Metoprolol Succinate* (Metoprolol Succinate*), 50 MG ORAL BID, (Reported) Pantoprazole* (Protonix*), 40 MG ORAL DAILY, (Reported) Sevelamer Carbonate (Renvela), 800 MG ORAL THREE TIMES A DAY, (Reported) Scheduled PRN Hydrocodone Bit/Acetaminophen 5-325* (Edgar 5-325*), 1 TAB ORAL Q6H PRN for For Pain, (Reported) Patient History Healthcare decision maker Resuscitation status Full Code Advanced Directive on File Past Medical/Surgical History Past Medical/Surgical History: (1) CHF (congestive heart failure), NYHA class II (2) Diabetic peripheral neuropathy (3) End stage renal failure on dialysis (4) Pleural effusion Review of Systems All Other Systems: negative except mentioned in HPI Physical Exam General Appearance: morbidly obese Lines, tubes and drains: peripheral Neck: non-tender, normal alignment Respiratory/Chest: chest wall non-tender, lungs clear Cardiovascular/Chest: normal peripheral pulses, normal rate Abdomen: normal bowel sounds, soft Extremities: normal range of motion Skin Exam: warm/dry Last 24 Hour Vital Signs Date Time Temp Pulse Resp B/P (MAP) Pulse Ox O2 Delivery O2 Flow Rate FiO2 11/01/17 12:00 97.2 88 20 125/72 97 Nasal Cannula 2.0 11/01/17 10:02 106 151/82 11/01/17 10:02 106 151/82 11/01/17 10:02 106 151/82 11/01/17 08:00 106 11/01/17 08:00 97.5 105 20 151/82 99 Nasal Cannula 2.0 11/01/17 04:00 108 11/01/17 00:00 98.2 96 20 140/77 100 Nasal Cannula 2.0 11/01/17 00:00 97 Laboratory Tests Test 11/01/17 10:00 White Blood Count 5.2 K/UL (4.8-10.8) Red Blood Count 3.33 M/UL (4.70-6.10) L Hemoglobin 11.0 G/DL (14.2-18.0) L Hematocrit 32.9 % (42.0-52.0) L Mean Corpuscular Volume 99 FL (80-99) Mean Corpuscular Hemoglobin 33.0 PG (27.0-31.0) H Mean Corpuscular Hemoglobin Concent 33.4 G/DL (32.0-36.0) Red Cell Distribution Width 14.1 % (11.6-14.8) Platelet Count 259 K/UL (150-450) Mean Platelet Volume 5.5 FL (6.5-10.1) L Neutrophils (%) (Auto) 73.7 % (45.0-75.0) Lymphocytes (%) (Auto) 14.1 % (20.0-45.0) L Monocytes (%) (Auto) 6.1 % (1.0-10.0) Eosinophils (%) (Auto) 5.0 % (0.0-3.0) H Basophils (%) (Auto) 1.1 % (0.0-2.0) Sodium Level 135 MMOL/L (136-145) L Potassium Level 7.0 MMOL/L (3.5-5.1) *H Chloride Level 97 MMOL/L (98-107) L Carbon Dioxide Level 26 MMOL/L (21-32) Anion Gap 12 mmol/L (5-15) Blood Urea Nitrogen 33 mg/dL (7-18) H Creatinine 8.1 MG/DL (0.55-1.30) H Estimat Glomerular Filtration Rate 6.7 mL/min (>60) Glucose Level 101 MG/DL (74-106) Calcium Level 7.8 MG/DL (8.5-10.1) L Phosphorus Level 4.7 MG/DL (2.5-4.9) Magnesium Level 2.0 MG/DL (1.8-2.4) Troponin I 0.006 ng/mL (0.000-0.056) Height (Feet): 5 Height (Inches): 7.00 Weight (Pounds): 204 Medications Current Medications Medications (Trade) Dose Ordered Sig/Krissy Route PRN Reason Start Time Stop Time Status Last Admin Dose Admin Acetaminophen (Tylenol) 650 mg Q4H PRN ORAL Mild Pain/Temp > 100.5 11/01/17 04:00 12/01/17 03:59 11/01/17 06:14 Amlodipine Besylate (Norvasc) 10 mg DAILY ORAL 11/01/17 09:00 12/01/17 08:59 11/01/17 10:02 Aspirin (ASA) 81 mg DAILY ORAL 11/01/17 09:00 12/01/17 08:59 11/01/17 10:01 Atorvastatin Calcium (Lipitor) 80 mg BEDTIME ORAL 11/01/17 21:00 12/01/17 20:59 Clobetasol Propionate (Temovate) 1 applic TWICE A DAY TOPIC 11/01/17 13:30 12/01/17 13:29 Clopidogrel Bisulfate (Plavix) 75 mg DAILY ORAL 11/01/17 09:00 12/01/17 08:59 11/01/17 10:02 Dextrose (Dextrose 50%) STAT PRN IV Hypoglycemia 11/01/17 03:45 12/01/17 03:44 Heparin Sodium (Porcine) (Heparin 5000 units/ml) 5,000 units EVERY 12 HOURS SUBQ 11/01/17 09:00 12/01/17 08:59 11/01/17 10:06 Hydromorphone HCl (Dilaudid) 2 mg Q4H PRN IVP Severe Pain (Pain Scale 7-10) 11/01/17 11:00 11/08/17 10:59 11/01/17 12:51 Insulin Aspart (NovoLOG) BEFORE MEALS AND HS SUBQ 11/01/17 06:30 12/01/17 06:29 Metoprolol Succinate (Toprol XL) 50 mg BID ORAL 11/01/17 09:00 12/01/17 08:59 11/01/17 10:02 Pantoprazole (Protonix) 40 mg DAILY ORAL 11/01/17 09:00 12/01/17 08:59 11/01/17 10:02 Sevelamer Carbonate (Renvela) 800 mg TIAC ORAL 11/01/17 06:30 12/01/17 06:29 11/01/17 12:51 Assessment/Plan Problem List: (1) Chest pain ICD Codes: R07.9 - Chest pain, unspecified SNOMED: 11065860 (2) HTN (hypertension) ICD Codes: I10 - Essential (primary) hypertension SNOMED: 51572305 (3) Anemia ICD Codes: D64.9 - Anemia, unspecified SNOMED: 899247175 (4) Diabetes mellitus ICD Codes: E11.9 - Type 2 diabetes mellitus without complications SNOMED: 01340359 (5) Hemodialysis patient ICD Codes: Z99.2 - Dependence on renal dialysis SNOMED: 378834684, 520412252 Assessment/Plan serial ekg, troponin echo cardio evaluation sliding scale JUAN SPENCE Nov 01, 2017 13:28
[2017-11-01] MEDS ORDERED: Sodium Polystyrene Sulfonate 15gm Powder ORAL ONE (15:00)
[2017-11-01] MEDS: Clobetasol Cream 0.05% 15gm TOPIC SCH ×2 (15:08→19:00)
[2017-11-01] MEDS: Sensipar 30mg Tab ORAL SCH (15:13)
--- NOTE | 2017-11-01 15:22 | Consultation ---
Consult Note Consult Note 67 YO M with significant cardiac history asked to eval for dialysis management 67 year old male with hx of ESRF, HTN, DM, CAD, CABG, presented to [facility] with CC of acute chest pain. He was initially evaluated in ER at [place] and then transferred to [facility] for further management. Pt still c/o chest pain and asking for Dilaudid. He looks comfortable and in no acute distress. He was at [facility] last year and had cardiac stress studies with imagining done, which were negative. i was asked to evaluate the patient at the request of Dr Darden for dialysis management PH: 1. Coronary artery disease, status post stent placement in 2013 and coronary artery bypass graft in 2016. 2. Diabetes type 2. 3. Hypertension. 4. End-stage renal disease, on hemodialysis every Wednesday, , and Wednesday. The patient's last dialysis was 10/30/17 5. Diabetic peripheral neuropathy. 6. Peripheral vascular disease. 7. Diabetic nephropathy. Patient interviewed, Examined, Labs reviewed . Assessment/Plan ESRD with high K ACS Anemia DM HTN Plan: Dialysis GEORGINA for high K, ordered adjust BP and BS Per cardiology GUNNER BARRERA Nov 01, 2017 15:22
[2017-11-01 16:00] VITALS: BP 136/91
--- NOTE | 2017-11-01 16:25 | Diagnostic Imaging Report ---
Indication: Dyspnea, chest pain Technique: One view of the chest Comparison: 2 hours earlier Findings: Left lateral basilar pleural thickening is unchanged. Monitoring device projects over the heart, better visualized than on prior exam. There maybe some atelectasis at the left lung base. Lungs and pleural spaces are otherwise clear. Evidence of prior CABG. Left subclavian venous stent demonstrated. Findings are unchanged Impression: Unchanged, over 2 hours, findings as above.
--- NOTE | 2017-11-01 18:17 | Cardiology Report ---
APPROVED REPORT EXAM: Two-dimensional and M-mode echocardiogram with Doppler and color Doppler. INDICATION Chest Pain M-Mode DIMENSIONS IVSd1.6 (0.7-1.1cm)Left Atrium (MM)3.8 (1.6-4.0cm) LVDd3.7 (3.5-5.6cm)Aortic Root3.2 (2.0-3.7cm) PWd1.3 (0.7-1.1cm)Aortic Cusp Exc.1.6 (1.5-2.0cm) IVSs1.7 cm LVDs2.5 (2.5-4.0cm) PWs1.7 cm Normal left ventricular chamber size, systolic function and wall motion . Left ventricular ejection fraction estimated to 60%. Mild ventricular hypertrophy by 2-D. No evidence of pericardial effusion. All other cardiac chamber sizes are within normal limits. Focal aortic valve sclerosis with adequate cusp excursion. Thickened mitral valve leaflets with normal excursion. Mitral annulus and aortic root calcification. Normal tricuspid valve structure. IVC at size 2.0 with physiological collapse. A color flow and spectral Doppler study was performed and revealed: No aortic insufficiency . Trace mitral regurgitation. Mitral diastolic velocities suggest reduced left ventricular relaxation c/w mild LV diastolic dysfunction (Grade I ). Tricuspid systolic velocities suggests peak right ventricular systolic pressure of 38 mmHg,consistent with mild pulmonary hypertension. Mild tricuspid regurgitation. No pulmonic regurgitation present .
--- NOTE | 2017-11-01 18:30 | History and Physical Report ---
DATE OF ADMISSION: 10/31/2017 CHIEF COMPLAINT: The patient is a 67-year-old male with history of coronary artery disease presents with chief complaint of chest pain. HISTORY OF PRESENT ILLNESS: The patient has a history of coronary artery bypass graft in 2015. The patient was recently discharged from [facility]. The patient also has a history of stent placement in 08/2017. The patient complains of chest pain, which started on 10/30/2017. Chest pain is on and off. Chest pain is left-sided. The patient denies radiation to the jaw or to the shoulder. The patient initially presented to [facility] emergency room. Initial troponin level was negative. The patient is admitted with chest pain to rule out acute coronary syndrome. PAST MEDICAL HISTORY: Significant for 1. End-stage renal disease, on hemodialysis. 2. Hypertension. 3. Diabetes type 2. 4. Coronary artery disease. PAST SURGICAL HISTORY: Significant for 1. Coronary artery bypass graft in 01/2016. 2. Amputation of bilateral toes. 3. Cardiac angioplasty in 08/2017 with one stent placement. CURRENT MEDICATIONS: 1. Metoprolol 50 mg one tablet p.o. twice daily. 2. Norvasc 10 mg one tablet p.o. daily. 3. QVAR one puff p.o. daily twice daily. 4. Albuterol metered dose inhaler two puffs p.o. twice daily. 5. Multivitamin one tablet p.o. daily. 6. [place]-3 fatty acids 300 mg p.o. daily. 7. Plavix 75 mg p.o. daily. 8. Coreg 3.125 mg p.o. twice daily. 9. Lipitor 40 mg p.o. daily. 10. Aspirin 325 mg one tablet p.o. daily. 11. [place] 5/325 mg one tablet p.o. q.6 h. p.r.n. 12. Lisinopril 2.5 mg p.o. daily. ALLERGIES: No known drug allergies. SOCIAL HISTORY: The patient is single and is disabled. 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 The patient denies tobacco use, having quit in 2015. The patient has occasional alcohol use. REVIEW OF SYSTEMS: CONSTITUTIONAL: The patient denies weight loss or weight gain. The patient denies fevers or chills. HEENT: The patient denies ear or throat pain. The patient denies headache. CARDIOVASCULAR: The patient complains of chest pain as above. The patient denies palpitations. ABDOMEN: The patient denies nausea, vomiting, diarrhea, or constipation. CHEST: The patient denies wheeze or shortness of breath. NEUROMUSCULAR: The patient denies seizures or generalized weakness. GENITOURINARY: The patient denies dysuria or increased frequency of urination. PHYSICAL EXAMINATION: GENERAL: The patient is a well-developed and well-nourished male, in no apparent distress. VITAL SIGNS: Temperature 98.2 degrees, respirations 20, pulse 97, and blood pressure 140/77. HEENT: Eyes, pupils equal and responsive to light and accommodation. Extraocular movements are intact. NECK: Supple without lymphadenopathy. CHEST: Lungs are clear to auscultation bilaterally without wheezes or rales. CARDIOVASCULAR: Regular rate. S1 and S2 are normal without murmurs, rubs, or gallops. ABDOMEN: Soft, nontender, and nondistended. Bowel sounds positive. No evidence of hepatosplenomegaly. Currently, no rebound or guarding noted. EXTREMITIES: Negative for clubbing, cyanosis, or edema. RECTAL/GENITAL: Refused. NEUROLOGICAL: Cranial nerves II through XII grossly intact without focal deficits. Motor strength is 5/5 bilaterally. Deep tendon reflexes are 2+ plantar. LABORATORY AND DIAGNOSTIC DATA: Sodium 133, potassium 4.7, chloride 96, CO2 23, BUN 21, creatinine 6.28 and glucose 92. WBC 4.5, hemoglobin 12.4, hematocrit 36.0, and platelets 320,000. Troponin less than 0.04. ASSESSMENT: This is a 67-year-old male 1. Chest pain. 2. Coronary artery disease. 3. End-stage renal disease, on hemodialysis. 4. Diabetes type 2. 5. Hypertension. 6. Anemia of chronic disease. TREATMENT: 1. Chest pain/coronary artery disease. A Cardiology consultation will be obtained with Dr. Carlos Springer. The patient had a workup at [facility] recently. Records will be obtained from [facility]. We will follow recommendations of Dr. Springer concerning need for cardiac stress testing. 2. End-stage renal disease. A Nephrology consultation will be obtained with Dr. Recio. 3. Hypertension. Continue Coreg and Norvasc as above. Continue lisinopril as above. 4. Diabetes type 2. The patient has been placed on a regular insulin sliding scale. Dima Marie M.D. DR: NANDO JOB#: [id number] CC:
[2017-11-01] MEDS: Docusate 100mg cap ORAL SCH (18:54)
[2017-11-01 20:00] VITALS: BP 101/60
--- NOTE | 2017-11-01 20:15 | Consultation ---
DATE OF CONSULTATION: 11/01/2017 CARDIOLOGY CONSULTATION REFERRING PHYSICIAN: Baldev Darden M.D. REASON FOR CONSULTATION: Chest pain. HISTORY OF PRESENT ILLNESS: The patient is a 67-year-old gentleman with history of hypertension, coronary artery disease, history of coronary artery bypass graft as well as history of multiple hospitalization, the most recent one at [facility] from 10/17/2017 through 10/20/2017. The patient underwent EGD with biopsy on 10/19/2017 that showed mild antral gastritis and duodenitis. The patient also has history of diabetes, gastroparesis, end-stage renal disease on hemodialysis as well as history of peripheral vascular disease with history of recurrent syncope underwent implantable loop recorder on 08/28/2017. The patient also has history of percutaneous coronary intervention with 70% to 80% PDA stenosis on 10/10/2016 at [facility] [address] Dr. Naylor. The patient presented to [facility] again complaining of chest pain and then was transferred to [facility] for further evaluation and management. PAST MEDICAL HISTORY: As mentioned above. MEDICATIONS: Discharge medications from [facility] included Norvasc 10 mg daily, aspirin 81 mg daily, Plavix 75 mg daily, Lipitor 80 mg daily, Lopressor 50 mg b.i.d., Sensipar, and Protonix. SOCIAL HISTORY: Lives at home. Does not smoke or drink alcohol. FAMILY HISTORY: Noncontributory. REVIEW OF SYSTEMS: Review of systems was performed and was negative other than what was mentioned in the history of present illness. PHYSICAL EXAMINATION: VITAL SIGNS: Blood pressure is 101/82, pulse 106, respirations 18, and temperature 97.5 degrees. HEAD AND NECK: No JVD. LUNGS: Coarse rhonchi. CARDIOVASCULAR: Regular S1 and S2 with no gallop or murmur. Sternotomy is intact. ABDOMEN: Soft. EXTREMITIES: No pitting edema. LABORATORY AND DIAGNOSTIC DATA: His labs from today, all are pending. ASSESSMENT AND PLAN: 1. Chest pain, the pain is atypical, we completely rule out myocardial infarction protocol. We will repeat the echocardiogram to evaluate for ejection fraction and wall motion abnormality. The patient also has history of coronary bypass graft as well as PDA stent in August 2017 as mentioned above. Continue aspirin 81 mg daily, Plavix 75 mg daily, and Toprol-XL 50 mg b.i.d. We will check lipid panel and start him on Lipitor as he can tolerate. 2. Hypertension. Continue Toprol-XL 50 mg b.i.d. and Norvasc 10 mg daily. I would discontinue Coreg, as the patient will be on Toprol. 3. Diabetes. 4. End-stage renal disease, on hemodialysis. 5. History of recurrent syncope and status post implantable loop recorder with no recent syncopal episodes. We will also repeat the chest x-ray for further evaluation. Thank you very much, Dr. Darden, for allowing me to participate in the care of this patient. Please do not hesitate to contact me for any questions regarding my evaluation. Carlos Springer M.D. DR: MONY JOB#: [id number] CC:
[2017-11-01] MEDS: Atorvastatin 80mg tab ORAL SCH (20:50)
[2017-11-02] VITALS: BP 133/61
--- NOTE | 2017-11-02 02:00 | History and Physical Report ---
DATE OF ADMISSION: 10/31/2017 NOTE: INCOMPLETE DICTATION CHIEF COMPLAINT: The patient is a 67-year-old male who presents with chief complaint of chest pain. HISTORY OF PRESENT ILLNESS: The patient has a long history of coronary artery disease. The patient is status post coronary artery bypass graft in 2015. The patient also had a stent placed at [facility] in July 2017. The patient began to experience chest pain on 10/30/2017. The patient states the chest pain is left-sided. There is no radiation to the jaw or to the shoulder. The patient initially presented to [facility] emergency room. Initial troponin level was negative. The patient transferred to [facility] for insurance purposes. The patient is admitted with chief complaint of chest pain to rule out acute coronary syndrome. PAST MEDICAL HISTORY: Significant for 1. End-stage renal disease on hemodialysis. 2. Hypertension. 3. Diabetes type 2. 4. History of myocardial infarction. 5. Coronary artery disease. 6. Anemia of chronic disease. PAST SURGICAL HISTORY: Significant for 1. Coronary artery bypass graft in 2015. 2. Amputation of the bilateral toes secondary to diabetic peripheral neuropathy. 3. Status post cardiac angioplasty with stent placement at [facility] in July 2017. CURRENT MEDICATIONS: 1. Metoprolol 50 mg one tablet p.o. twice daily. 2. Amlodipine 10 mg one tablet p.o. daily. 3. QVAR inhaled daily. 4. Albuterol metered dose inhaler two puffs p.o. q.i.d. p.r.n. 5. Multivitamin. 6. Fish oil 300 mg one tablet p.o. twice daily. 7. Plavix 75 mg one tablet p.o. daily. 8. Coreg 3.125 mg p.o. twice daily. 9. Lipitor 40 mg p.o. daily. 10. Aspirin 325 mg one tablet p.o. daily. 11. [place] 5/325 mg one tablet p.o. q.4 h. p.r.n. 12. Lisinopril 2.5 mg p.o. daily. ALLERGIES: No known drug allergies. SOCIAL HISTORY: The patient is single, however, has a long-term partner. The patient lives with his adult daughter. The patient denies tobacco use, having quit in 2015. The patient admits to occasional alcohol use. REVIEW OF SYSTEMS: CONSTITUTIONAL: The patient denies weight loss or weight gain. The patient denies fevers or chills. HEENT: The patient denies ear or throat pain. The patient denies headache. CARDIOVASCULAR: The patient complains of chest pain as above. The patient denies palpitations. ABDOMEN: The patient denies nausea, vomiting, diarrhea, or constipation. CHEST: The patient denies wheeze or shortness of breath. NEUROMUSCULAR: The patient denies seizures or generalized weakness. GENITOURINARY: The patient denies dysuria or increased frequency of urination. PHYSICAL EXAMINATION: GENERAL: The patient is a well-developed and well-nourished male, in no apparent distress. VITAL SIGNS: Temperature 98.2 degrees, respirations 20, pulse 97, and blood pressure 140/77. HEENT: Eyes, pupils equal and responsive to light and accommodation. Extraocular movements are intact. NECK: Supple without lymphadenopathy. CHEST: Lungs are clear to auscultation bilaterally without wheezes or rales. CARDIOVASCULAR: Regular rate. S1 and S2 are normal without murmurs, rubs, or gallops. ABDOMEN: Soft, nontender, and nondistended. Positive bowel sounds. No evidence of hepatosplenomegaly. Currently, no rebound or guarding noted. EXTREMITIES: No clubbing, cyanosis, or edema. RECTAL/GENITAL: Refused. NEUROLOGIC: Cranial nerves II through XII are grossly intact without focal deficits. Motor strength is 5/5 bilaterally. Deep tendon reflexes are 2+ plantar. LABORATORY AND DIAGNOSTIC DATA: Laboratory studies from [place] WBC 4.5, hemoglobin 12.4, hematocrit 36.0, and platelets 320,000. Glucose 92, BUN 21, and creatinine 6.28. Troponin less than 0.04. Dima Marie M.D. DR: NANDO JOB#: [id number] CC:
[2017-11-02 04:00] VITALS: BP 109/64
[2017-11-02] MEDS: NovoLOG Insulin Flexpen SUBQ SCH ×4 (06:18→21:00)
[2017-11-02 08:00] VITALS: BP 114/67
[2017-11-02] MEDS: Sensipar 30mg Tab ORAL SCH (08:25)
[2017-11-02] MEDS: Metoprolol Succinate XL 50mg tab ORAL SCH ×2 (08:26→17:28)
[2017-11-02] MEDS: Aspirin Baby 81mg ORAL SCH (08:26)
[2017-11-02] MEDS: Docusate 100mg cap ORAL SCH ×3 (08:26→17:28)
[2017-11-02 08:27] LABS: BASOPHILS % (AUTO) 1.3 % (0.0-2.0); HEMATOCRIT 29.8 % (42.0-52.0); HEMOGLOBIN 10.1 G/DL (14.2-18.0); LYMPHOCYTES % (AUTO) 20.5 % (20.0-45.0); MEAN CORPUSCULAR VOLUME 100 FL (80-99); MONOCYTES % (AUTO) 7.2 % (1.0-10.0); PLATELET COUNT 226 K/UL (150-450); RED BLOOD COUNT 2.99 M/UL (4.70-6.10); RED CELL DISTRIBUTION WIDTH 14.8 % (11.6-14.8); WHITE BLOOD COUNT 3.9 K/UL (4.8-10.8)
[2017-11-02] MEDS: Heparin 5000 units/ml inj SUBQ SCH ×2 (08:29→21:10)
[2017-11-02] MEDS: Clobetasol Cream 0.05% 15gm TOPIC SCH ×4 (08:31→21:08)
[2017-11-02 08:52] LABS: PHOSPHORUS 4.4 MG/DL (2.5-4.9)
[2017-11-02 08:58] LABS: ALANINE AMINOTRANSFERASE 18 U/L (12-78); ALBUMIN 3.6 G/DL (3.4-5.0); ALKALINE PHOSPHATASE 178 U/L (46-116); ANION GAP 12 mmol/L (5-15); ASPARTATE AMINO TRANSFERASE 22 U/L (15-37); BILIRUBIN,TOTAL 0.8 MG/DL (0.2-1.0); BLOOD UREA NITROGEN 17 mg/dL (7-18); CALCIUM 7.6 MG/DL (8.5-10.1); CARBON DIOXIDE 28 MMOL/L (21-32); CHLORIDE 101 MMOL/L (98-107); CHOLESTEROL 94 MG/DL (< 200); CREATININE 6.3 MG/DL (0.55-1.30); HDL CHOLESTEROL 59 MG/DL (40-60); POTASSIUM 4.5 MMOL/L (3.5-5.1); SODIUM 141 MMOL/L (136-145); TRIGLYCERIDES 105 MG/DL (30-150)
[2017-11-02 12:00] VITALS: BP 119/64
--- NOTE | 2017-11-02 12:24 | Pulmonology Progress Note ---
Assessment/Plan Problems: (1) Chest pain (2) HTN (hypertension) (3) Anemia (4) Diabetes mellitus (5) Hemodialysis patient Assessment/Plan f/u cardio recommendations still having chest pain anemia w/u in progress. HD by civil lawyer Subjective ROS Limited/Unobtainable: No Interval Events: still c/o chest pain, on and off Allergies: Coded Allergies: No Known Allergies (Unverified , 11/01/17) Objective Last 24 Hour Vital Signs Date Time Temp Pulse Resp B/P (MAP) Pulse Ox O2 Delivery O2 Flow Rate FiO2 11/02/17 08:26 111 114/67 11/02/17 08:25 111 114/67 11/02/17 08:00 99.0 111 20 114/67 97 Nasal Cannula 2.0 11/02/17 08:00 104 11/02/17 04:00 107 11/02/17 04:00 98.1 106 20 109/64 100 Nasal Cannula 2.0 11/02/17 00:00 104 11/02/17 00:00 97.0 103 20 133/61 96 Nasal Cannula 2.0 11/01/17 20:00 97.5 95 18 101/60 94 11/01/17 20:00 Room Air 11/01/17 20:00 95 11/01/17 19:25 Nasal Cannula 11/01/17 18:57 89 136/91 11/01/17 16:00 89 11/01/17 16:00 98.1 87 18 136/91 96 Room Air 11/01/17 14:55 Nasal Cannula Intake and Output 11/01/17 11/02/17 19:00 07:00 Intake Total 300 ml 100 ml Output Total 2300 ml Balance 300 ml -2200 ml Intake Oral 300 ml 100 ml Output Hemodialysis UF 2300 ml General Appearance: WD/WN HEENT: normocephalic, atraumatic Respiratory/Chest: chest wall non-tender, lungs clear Cardiovascular: normal peripheral pulses, normal rate Abdomen: normal bowel sounds, soft, non tender Genitourinary: normal external genitalia Extremities: no clubbing Skin: no lesions Neurologic/Psychiatric: no motor/sensory deficits Laboratory Tests 11/02/17 05:10: White Blood Count 3.9L, Red Blood Count 2.99L, Hemoglobin 10.1L, Hematocrit 29.8L, Mean Corpuscular Volume 100H, Mean Corpuscular Hemoglobin 33.7H, Mean Corpuscular Hemoglobin Concent 33.8, Red Cell Distribution Width 14.8, Platelet Count 226, Mean Platelet Volume 5.6L, Neutrophils (%) (Auto) 64.0, Lymphocytes ( %) (Auto) 20.5, Monocytes (%) (Auto) 7.2, Eosinophils (%) (Auto) 7.0H, Basophils (%) (Auto) 1.3, Sodium Level 141, Potassium Level 4.5, Chloride Level 101, Carbon Dioxide Level 28, Anion Gap 12, Blood Urea Nitrogen 17, Creatinine 6.3H, Estimat Glomerular Filtration Rate 8.9, Glucose Level 97, Hemoglobin A1c 5.6, Uric Acid 3.1, Calcium Level 7.6L, Phosphorus Level 4.4, Magnesium Level 2.0, Total Bilirubin 0.8, Gamma Glutamyl Transpeptidase 59, Aspartate Amino Transf (AST/SGOT) 22, Alanine Aminotransferase (ALT/SGPT) 18, Alkaline Phosphatase 178H, Troponin I 0.007, Pro-B-Type Natriuretic Peptide 4048H, Total Protein 7.3, Albumin 3.6, Globulin 3.7, Albumin/Globulin Ratio 1.0, Triglycerides Level 105, Cholesterol Level 94, LDL Cholesterol 28, HDL Cholesterol 59, Cholesterol/HDL Ratio 1.6L, Thyroid Stimulating Hormone (TSH) 4.120H Current Medications Medications (Trade) Dose Ordered Sig/Krissy Route PRN Reason Start Time Stop Time Status Last Admin Dose Admin Acetaminophen (Tylenol) 650 mg Q4H PRN ORAL Mild Pain/Temp > 100.5 11/01/17 04:00 12/01/17 03:59 11/01/17 06:14 Amlodipine Besylate (Norvasc) 10 mg DAILY ORAL 11/01/17 09:00 12/01/17 08:59 11/02/17 08:25 Aspirin (ASA) 81 mg DAILY ORAL 11/01/17 09:00 12/01/17 08:59 11/02/17 08:26 Atorvastatin Calcium (Lipitor) 80 mg BEDTIME ORAL 11/01/17 21:00 12/01/17 20:59 11/01/17 20:50 Cinacalcet (Sensipar) 90 mg DAILY ORAL 11/01/17 15:00 12/01/17 14:59 11/02/17 08:25 Clobetasol Propionate (Temovate) 1 applic TWICE A DAY TOPIC 11/01/17 13:30 12/01/17 13:29 11/02/17 08:31 Clopidogrel Bisulfate (Plavix) 75 mg DAILY ORAL 11/01/17 09:00 12/01/17 08:59 11/02/17 08:26 Dextrose (Dextrose 50%) STAT PRN IV Hypoglycemia 11/01/17 03:45 12/01/17 03:44 Diphenhydramine HCl (Benadryl) 25 mg Q8H PRN ORAL Itching 11/01/17 23:00 12/01/17 22:59 11/02/17 00:00 Docusate Sodium (Colace) 100 mg TID ORAL 11/01/17 18:00 12/01/17 17:59 11/02/17 08:26 Heparin Sodium (Porcine) (Heparin 5000 units/ml) 5,000 units EVERY 12 HOURS SUBQ 11/01/17 09:00 12/01/17 08:59 11/02/17 08:29 Hydromorphone HCl (Dilaudid) 2 mg Q4H PRN IVP Severe Pain (Pain Scale 7-10) 11/01/17 11:00 11/08/17 10:59 11/02/17 08:27 Insulin Aspart (NovoLOG) BEFORE MEALS AND HS SUBQ 11/01/17 06:30 12/01/17 06:29 Metoprolol Succinate (Toprol XL) 50 mg BID ORAL 11/01/17 09:00 12/01/17 08:59 11/02/17 08:26 Ondansetron HCl (Zofran) 4 mg Q6H PRN IVP Nausea & Vomiting 11/01/17 13:45 12/01/17 13:44 11/01/17 15:08 Pantoprazole (Protonix) 40 mg DAILY ORAL 11/01/17 09:00 12/01/17 08:59 11/02/17 08:26 Sevelamer Carbonate (Renvela) 800 mg TIAC ORAL 11/01/17 06:30 12/01/17 06:29 11/02/17 06:12 JUAN SPENCE Nov 02, 2017 12:24
--- NOTE | 2017-11-02 13:24 | Consultation ---
Consult Note Assessment/Plan Renal consult dictated # [id number] LUNA LAGUNAS Nov 02, 2017 13:24
[2017-11-02] MEDS: Nephrovite tab (Rena-Vite) ORAL SCH (14:48)
--- NOTE | 2017-11-02 15:12 | Nephrology Progress Note ---
Assessment/Plan Problem List: (1) Hyperkalemia (2) End stage renal failure on dialysis (3) Anemia (4) CAD (coronary artery disease) Assessment ESRD with high K ACS Anemia DM HTN Plan Plan: Dialysis 11/01 for high K, ordered again 11/03 adjust BP and BS Per cardiology Subjective ROS Limited/Unobtainable: No Objective Objective Last 24 Hour Vital Signs Date Time Temp Pulse Resp B/P (MAP) Pulse Ox O2 Delivery O2 Flow Rate FiO2 11/02/17 13:02 99.0 11/02/17 12:00 96 11/02/17 12:00 97.7 98 20 119/64 99 Nasal Cannula 2.0 11/02/17 08:26 111 114/67 11/02/17 08:25 111 114/67 11/02/17 08:00 99.0 111 20 114/67 97 Nasal Cannula 2.0 11/02/17 08:00 104 11/02/17 04:00 107 11/02/17 04:00 98.1 106 20 109/64 100 Nasal Cannula 2.0 11/02/17 00:00 104 11/02/17 00:00 97.0 103 20 133/61 96 Nasal Cannula 2.0 11/01/17 20:00 97.5 95 18 101/60 94 11/01/17 20:00 Room Air 11/01/17 20:00 95 11/01/17 19:25 Nasal Cannula 11/01/17 18:57 89 136/91 11/01/17 16:00 89 11/01/17 16:00 98.1 87 18 136/91 96 Room Air Intake and Output 11/01/17 11/02/17 19:00 07:00 Intake Total 300 ml 100 ml Output Total 2300 ml Balance 300 ml -2200 ml Intake Oral 300 ml 100 ml Output Hemodialysis UF 2300 ml Laboratory Tests 11/02/17 05:10: White Blood Count 3.9L, Red Blood Count 2.99L, Hemoglobin 10.1L, Hematocrit 29.8L, Mean Corpuscular Volume 100H, Mean Corpuscular Hemoglobin 33.7H, Mean Corpuscular Hemoglobin Concent 33.8, Red Cell Distribution Width 14.8, Platelet Count 226, Mean Platelet Volume 5.6L, Neutrophils (%) (Auto) 64.0, Lymphocytes ( %) (Auto) 20.5, Monocytes (%) (Auto) 7.2, Eosinophils (%) (Auto) 7.0H, Basophils (%) (Auto) 1.3, Sodium Level 141, Potassium Level 4.5, Chloride Level 101, Carbon Dioxide Level 28, Anion Gap 12, Blood Urea Nitrogen 17, Creatinine 6.3H, Estimat Glomerular Filtration Rate 8.9, Glucose Level 97, Hemoglobin A1c 5.6, Uric Acid 3.1, Calcium Level 7.6L, Phosphorus Level 4.4, Magnesium Level 2.0, Total Bilirubin 0.8, Gamma Glutamyl Transpeptidase 59, Aspartate Amino Transf (AST/SGOT) 22, Alanine Aminotransferase (ALT/SGPT) 18, Alkaline Phosphatase 178H, Troponin I 0.007, Pro-B-Type Natriuretic Peptide 4048H, Total Protein 7.3, Albumin 3.6, Globulin 3.7, Albumin/Globulin Ratio 1.0, Triglycerides Level 105, Cholesterol Level 94, LDL Cholesterol 28, HDL Cholesterol 59, Cholesterol/HDL Ratio 1.6L, Thyroid Stimulating Hormone (TSH) 4.120H Height (Feet): 5 Height (Inches): 7.00 Weight (Pounds): 191 General Appearance: no apparent distress Cardiovascular: tachycardia Respiratory/Chest: decreased breath sounds Abdomen: soft GUNNER BARRERA Nov 02, 2017 15:12
--- NOTE | 2017-11-02 15:45 | Cardiac Electrophysiology PN ---
Assessment/Plan Assessment/Plan 1. Chest pain, the pain is atypical and completely rule out myocardial infarction. Echocardiogram EF 60%. Also s/p coronary bypass graft as well as PDA stent in August 2017 Continue aspirin 81 mg daily, Plavix 75 mg daily, and Toprol-XL 50 mg b.i.d. 2. Hypertension. Continue Toprol-XL 50 mg b.i.d. and Norvasc 10 mg daily. 3. Diabetes. 4. End-stage renal disease, on hemodialysis. 5. History of recurrent syncope and status post implantable loop recorder with no recent syncopal episodes. We will also repeat the chest x-ray for further evaluation. SWETHA RN Subjective Subjective Feeling better after HD. Objective Last 24 Hour Vital Signs Date Time Temp Pulse Resp B/P (MAP) Pulse Ox O2 Delivery O2 Flow Rate FiO2 11/02/17 13:02 99.0 11/02/17 12:00 96 11/02/17 12:00 97.7 98 20 119/64 99 Nasal Cannula 2.0 11/02/17 08:26 111 114/67 11/02/17 08:25 111 114/67 11/02/17 08:00 99.0 111 20 114/67 97 Nasal Cannula 2.0 11/02/17 08:00 104 11/02/17 04:00 107 11/02/17 04:00 98.1 106 20 109/64 100 Nasal Cannula 2.0 11/02/17 00:00 104 11/02/17 00:00 97.0 103 20 133/61 96 Nasal Cannula 2.0 11/01/17 20:00 97.5 95 18 101/60 94 11/01/17 20:00 Room Air 11/01/17 20:00 95 11/01/17 19:25 Nasal Cannula 11/01/17 18:57 89 136/91 11/01/17 16:00 89 11/01/17 16:00 98.1 87 18 136/91 96 Room Air Intake and Output 11/01/17 11/02/17 19:00 07:00 Intake Total 300 ml 100 ml Output Total 2300 ml Balance 300 ml -2200 ml Intake Oral 300 ml 100 ml Output Hemodialysis UF 2300 ml Laboratory Tests Test 11/02/17 05:10 White Blood Count 3.9 K/UL (4.8-10.8) L Red Blood Count 2.99 M/UL (4.70-6.10) L Hemoglobin 10.1 G/DL (14.2-18.0) L Hematocrit 29.8 % (42.0-52.0) L Mean Corpuscular Volume 100 FL (80-99) H Mean Corpuscular Hemoglobin 33.7 PG (27.0-31.0) H Mean Corpuscular Hemoglobin Concent 33.8 G/DL (32.0-36.0) Red Cell Distribution Width 14.8 % (11.6-14.8) Platelet Count 226 K/UL (150-450) Mean Platelet Volume 5.6 FL (6.5-10.1) L Neutrophils (%) (Auto) 64.0 % (45.0-75.0) Lymphocytes (%) (Auto) 20.5 % (20.0-45.0) Monocytes (%) (Auto) 7.2 % (1.0-10.0) Eosinophils (%) (Auto) 7.0 % (0.0-3.0) H Basophils (%) (Auto) 1.3 % (0.0-2.0) Sodium Level 141 MMOL/L (136-145) Potassium Level 4.5 MMOL/L (3.5-5.1) Chloride Level 101 MMOL/L (98-107) Carbon Dioxide Level 28 MMOL/L (21-32) Anion Gap 12 mmol/L (5-15) Blood Urea Nitrogen 17 mg/dL (7-18) Creatinine 6.3 MG/DL (0.55-1.30) H Estimat Glomerular Filtration Rate 8.9 mL/min (>60) Glucose Level 97 MG/DL (74-106) Hemoglobin A1c 5.6 % (4.3-6.0) Uric Acid 3.1 MG/DL (2.6-7.2) Calcium Level 7.6 MG/DL (8.5-10.1) L Phosphorus Level 4.4 MG/DL (2.5-4.9) Magnesium Level 2.0 MG/DL (1.8-2.4) Total Bilirubin 0.8 MG/DL (0.2-1.0) Gamma Glutamyl Transpeptidase 59 U/L (5-85) Aspartate Amino Transf (AST/SGOT) 22 U/L (15-37) Alanine Aminotransferase (ALT/SGPT) 18 U/L (12-78) Alkaline Phosphatase 178 U/L (46-116) H Troponin I 0.007 ng/mL (0.000-0.056) Pro-B-Type Natriuretic Peptide 4048 pg/mL (0-125) H Total Protein 7.3 G/DL (6.4-8.2) Albumin 3.6 G/DL (3.4-5.0) Globulin 3.7 g/dL Albumin/Globulin Ratio 1.0 (1.0-2.7) Triglycerides Level 105 MG/DL (30-150) Cholesterol Level 94 MG/DL (< 200) LDL Cholesterol 28 mg/dL (<100) HDL Cholesterol 59 MG/DL (40-60) Cholesterol/HDL Ratio 1.6 (3.3-4.4) L Thyroid Stimulating Hormone (TSH) 4.120 uiU/mL (0.358-3.740) Objective HEAD AND NECK: No JVD. LUNGS: Coarse rhonchi. CARDIOVASCULAR: Regular S1 and S2 with no gallop or murmur. Sternotomy is intact. ABDOMEN: Soft. EXTREMITIES: No pitting edema. LUISA JHAVERI Nov 02, 2017 15:45
[2017-11-02 15:59] VITALS: BP 119/65
[2017-11-02] MEDS: DiphenhydrAMINE 50mg/ml Inj IVP PRN (17:28)
--- NOTE | 2017-11-02 18:36 | Internal Med Progress Note ---
Subjective Date of Service: Nov 02, 2017 Physician Name Vincent Roberson Attending Physician Baldev Darden MD Current Medications Medications (Trade) Dose Ordered Sig/Krissy Route PRN Reason Start Time Stop Time Status Last Admin Dose Admin Acetaminophen (Tylenol) 650 mg Q4H PRN ORAL Mild Pain/Temp > 100.5 11/01/17 04:00 12/01/17 03:59 11/01/17 06:14 Amlodipine Besylate (Norvasc) 10 mg DAILY ORAL 11/01/17 09:00 12/01/17 08:59 11/02/17 08:25 Aspirin (ASA) 81 mg DAILY ORAL 11/01/17 09:00 12/01/17 08:59 11/02/17 08:26 Atorvastatin Calcium (Lipitor) 80 mg BEDTIME ORAL 11/01/17 21:00 12/01/17 20:59 11/01/17 20:50 Cinacalcet (Sensipar) 90 mg DAILY ORAL 11/01/17 15:00 12/01/17 14:59 11/02/17 08:25 Clobetasol Propionate (Temovate) 1 applic TWICE A DAY TOPIC 11/01/17 13:30 12/01/17 13:29 11/02/17 14:48 Clopidogrel Bisulfate (Plavix) 75 mg DAILY ORAL 11/01/17 09:00 12/01/17 08:59 11/02/17 08:26 Dextrose (Dextrose 50%) STAT PRN IV Hypoglycemia 11/01/17 03:45 12/01/17 03:44 Diphenhydramine HCl (Benadryl) 25 mg Q6H PRN IVP Itching 11/02/17 17:00 12/02/17 16:59 11/02/17 17:28 Docusate Sodium (Colace) 100 mg TID ORAL 11/01/17 18:00 12/01/17 17:59 11/02/17 17:28 Epoetin Jan (Procrit (for ESRD on dialysis)) 5,000 units WED-WED-WED SUBQ 11/03/17 21:00 12/03/17 20:59 Heparin Sodium (Porcine) (Heparin 5000 units/ml) 5,000 units EVERY 12 HOURS SUBQ 11/01/17 09:00 12/01/17 08:59 11/02/17 08:29 Heparin Sodium (Porcine) (Heparin Sod 1000 units/ml 10ml) 2,000 unit ONCE PRN IV for HD 11/03/17 07:00 11/03/17 23:59 Hydromorphone HCl (Dilaudid) 2 mg Q4H PRN IVP Severe Pain (Pain Scale 7-10) 11/01/17 11:00 11/08/17 10:59 11/02/17 17:01 Insulin Aspart (NovoLOG) BEFORE MEALS AND HS SUBQ 11/01/17 06:30 12/01/17 06:29 Metoprolol Succinate (Toprol XL) 50 mg BID ORAL 11/01/17 09:00 12/01/17 08:59 11/02/17 17:28 Ondansetron HCl (Zofran) 4 mg Q6H PRN IVP Nausea & Vomiting 11/01/17 13:45 12/01/17 13:44 11/01/17 15:08 Pantoprazole (Protonix) 40 mg DAILY ORAL 11/01/17 09:00 12/01/17 08:59 11/02/17 08:26 Sevelamer Carbonate (Renvela) 800 mg TIAC ORAL 11/01/17 06:30 12/01/17 06:29 11/02/17 16:22 Sodium Chloride 1,000 ml @ 500 mls/hr Q2H PRN IVLG sbp<90 during hd 11/03/17 13:24 11/03/17 23:59 Vitamin B Complex/ Vit C/Folic Acid (Nephrovite) 1 tab DAILY ORAL 11/02/17 15:00 12/02/17 14:59 11/02/17 14:48 Allergies: Coded Allergies: No Known Allergies (Unverified , 11/01/17) ROS Limited/Unobtainable: No Constitutional: Reports: no symptoms HEENT: Reports: no symptoms Cardiovascular: Reports: chest pain Respiratory: Reports: no symptoms Gastrointestinal/Abdominal: Reports: no symptoms Genitourinary: Reports: no symptoms Neurologic/Psychiatric: Reports: no symptoms Subjective 67 YO M with a history of coronary bypass admitted with chest pain. Cover for Int Kyle Darden Objective Last Vital Signs Date Time Temp Pulse Resp B/P (MAP) Pulse Ox O2 Delivery O2 Flow Rate FiO2 11/02/17 17:31 97.5 11/02/17 17:28 90 119/65 11/02/17 15:59 20 98 Nasal Cannula 2.0 General Appearance: WD/WN, no apparent distress, alert EENT: PERRL/EOMI, normal ENT inspection Neck: non-tender, normal alignment, supple, normal inspection Cardiovascular: normal peripheral pulses, normal rate, regular rhythm, no gallop/murmur, no JVD Respiratory/Chest: chest wall non-tender, lungs clear, normal breath sounds, no respiratory distress, no accessory muscle use Abdomen: normal bowel sounds, non tender, soft, no organomegaly, no mass Extremities: normal range of motion, non-tender 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0) Monocytes (%) (Auto) 7.2 % (1.0-10.0) Eosinophils (%) (Auto) 7.0 % (0.0-3.0) H Basophils (%) (Auto) 1.3 % (0.0-2.0) Sodium Level 141 MMOL/L (136-145) Potassium Level 4.5 MMOL/L (3.5-5.1) Chloride Level 101 MMOL/L (98-107) Carbon Dioxide Level 28 MMOL/L (21-32) Anion Gap 12 mmol/L (5-15) Blood Urea Nitrogen 17 mg/dL (7-18) Creatinine 6.3 MG/DL (0.55-1.30) H Estimat Glomerular Filtration Rate 8.9 mL/min (>60) Glucose Level 97 MG/DL (74-106) Hemoglobin A1c 5.6 % (4.3-6.0) Uric Acid 3.1 MG/DL (2.6-7.2) Calcium Level 7.6 MG/DL (8.5-10.1) L Phosphorus Level 4.4 MG/DL (2.5-4.9) Magnesium Level 2.0 MG/DL (1.8-2.4) Total Bilirubin 0.8 MG/DL (0.2-1.0) Gamma Glutamyl Transpeptidase 59 U/L (5-85) Aspartate Amino Transf (AST/SGOT) 22 U/L (15-37) Alanine Aminotransferase (ALT/SGPT) 18 U/L (12-78) Alkaline Phosphatase 178 U/L (46-116) H Troponin I 0.007 ng/mL (0.000-0.056) Pro-B-Type Natriuretic Peptide 4048 pg/mL (0-125) H Total Protein 7.3 G/DL (6.4-8.2) Albumin 3.6 G/DL (3.4-5.0) Globulin 3.7 g/dL Albumin/Globulin Ratio 1.0 (1.0-2.7) Triglycerides Level 105 MG/DL (30-150) Cholesterol Level 94 MG/DL (< 200) LDL Cholesterol 28 mg/dL (<100) HDL Cholesterol 59 MG/DL (40-60) Cholesterol/HDL Ratio 1.6 (3.3-4.4) L Thyroid Stimulating Hormone (TSH) 4.120 uiU/mL (0.358-3.740) Intake and Output 11/01/17 11/02/17 19:00 07:00 Intake Total 300 ml 100 ml Output Total 2300 ml Balance 300 ml -2200 ml Intake Oral 300 ml 100 ml Output Hemodialysis UF 2300 ml Assessment/Plan Problem List: (1) Nausea (2) CAD (coronary artery disease) Assessment & Plan: See cardiology note. (3) Chest pain Assessment & Plan: Ruled out for myocardial infarction. See cardiology note. (4) End stage renal failure on dialysis Assessment & Plan: Next hemodialysis 11/03/17-see nephrology note. (5) HTN (hypertension) Assessment & Plan: Continue norvasc and toprolol (6) Diabetes mellitus Assessment & Plan: Continue novolog sliding scale. (7) Anemia VINCENT ROBERSON Nov 02, 2017 18:35
[2017-11-02 20:00] VITALS: BP 117/59
[2017-11-02] MEDS: Atorvastatin 80mg tab ORAL SCH (21:08)
[2017-11-03] VITALS (8 sets, daily range): BP systolic 92–128; BP diastolic 61–76
[2017-11-03] MEDS: DiphenhydrAMINE 50mg/ml Inj IVP PRN ×2 (00:13→08:24)
[2017-11-03] MEDS: NovoLOG Insulin Flexpen SUBQ SCH ×4 (06:30→21:00)
[2017-11-03] MEDS ORDERED: Heparin Sod 1000 units/ml 10ml IV PRN (07:00)
[2017-11-03] MEDS: Aspirin Baby 81mg ORAL SCH (08:23)
[2017-11-03] MEDS: Sensipar 30mg Tab ORAL SCH (08:23)
[2017-11-03] MEDS: Nephrovite tab (Rena-Vite) ORAL SCH (08:23)
[2017-11-03] MEDS: Docusate 100mg cap ORAL SCH ×3 (08:24→18:51)
[2017-11-03] MEDS: Heparin 5000 units/ml inj SUBQ SCH ×2 (08:26→22:06)
[2017-11-03 08:33] LABS: BASOPHILS % (AUTO) 1.1 % (0.0-2.0); EOSINOPHILS % (AUTO) 10.1 % (0.0-3.0); HEMOGLOBIN 9.6 G/DL (14.2-18.0); LYMPHOCYTES % (AUTO) 18.3 % (20.0-45.0); MEAN CORPUSCULAR VOLUME 100 FL (80-99); MONOCYTES % (AUTO) 5.5 % (1.0-10.0); NEUTROPHILS % (AUTO) 65.1 % (45.0-75.0); PLATELET COUNT 213 K/UL (150-450); RED BLOOD COUNT 2.89 M/UL (4.70-6.10); RED CELL DISTRIBUTION WIDTH 14.9 % (11.6-14.8); WHITE BLOOD COUNT 5.1 K/UL (4.8-10.8)
[2017-11-03] MEDS: Metoprolol Succinate XL 50mg tab ORAL SCH ×2 (08:36→18:51)
[2017-11-03 08:39] LABS: INR 0.9 (0.9-1.1)
[2017-11-03 09:18] LABS: ANION GAP 9 mmol/L (5-15); BLOOD UREA NITROGEN 27 mg/dL (7-18); CALCIUM 7.2 MG/DL (8.5-10.1); CARBON DIOXIDE 30 MMOL/L (21-32); CHLORIDE 100 MMOL/L (98-107); CREATININE 8.7 MG/DL (0.55-1.30); POTASSIUM 4.2 MMOL/L (3.5-5.1); SODIUM 139 MMOL/L (136-145)
[2017-11-03 09:24] LABS: LACTATE DEHYDROGENASE 234 U/L (81-234)
[2017-11-03 09:45] LABS: % IRON SATURATION 80 % (15-50); IRON 155 ug/dL (50-175); TOTAL IRON BINDING CAPACITY 194 ug/dL (250-450)
[2017-11-03] MEDS: Clobetasol Cream 0.05% 15gm TOPIC SCH ×2 (10:43→18:57)
--- NOTE | 2017-11-03 13:00 | Nephrology Progress Note ---
Assessment/Plan Problem List: (1) Hyperkalemia (2) End stage renal failure on dialysis (3) Anemia (4) CAD (coronary artery disease) Assessment ESRD with high K ACS Anemia DM HTN Plan Plan: Dialysis 11/01 for high K, ordered again 11/03 adjust BP and BS Per cardiology Subjective ROS Limited/Unobtainable: No Objective Objective Last 24 Hour Vital Signs Date Time Temp Pulse Resp B/P (MAP) Pulse Ox O2 Delivery O2 Flow Rate FiO2 11/03/17 11:12 97.0 11/03/17 08:36 96 120/63 11/03/17 08:36 96 120/63 11/03/17 08:00 97.0 96 16 120/63 92 Room Air 11/03/17 04:00 98.2 101 20 103/61 100 Room Air 11/03/17 04:00 105 11/03/17 00:00 96 11/03/17 00:00 97.9 94 18 118/62 100 Room Air 11/02/17 20:00 97 11/02/17 20:00 98.4 96 18 117/59 97 Room Air 11/02/17 17:28 90 119/65 11/02/17 16:00 91 11/02/17 15:59 97.5 90 20 119/65 98 Nasal Cannula 2.0 Intake and Output 11/02/17 11/03/17 19:00 07:00 Intake Total 240 ml 200 ml Balance 240 ml 200 ml Intake Oral 240 ml 200 ml Laboratory Tests 11/03/17 07:40: White Blood Count 5.1, Red Blood Count 2.89L, Hemoglobin 9.6L, Hematocrit 29.0L , Mean Corpuscular Volume 100H, Mean Corpuscular Hemoglobin 33.1H, Mean Corpuscular Hemoglobin Concent 33.0, Red Cell Distribution Width 14.9H, Platelet Count 213, Mean Platelet Volume 5.6L, Neutrophils (%) (Auto) 65.1, Lymphocytes (%) (Auto) 18.3L, Monocytes (%) (Auto) 5.5, Eosinophils (%) (Auto) 10.1H, Basophils (%) (Auto) 1.1, Differential Total Cells Counted 100, Neutrophils % (Manual) 67, Lymphocytes % (Manual) 16L, Monocytes % (Manual) 4, Eosinophils % (Manual) 12H, Basophils % (Manual) 1, Band Neutrophils 0, Other Cell Type Pathologist comment, Platelet Estimate Adequate, Platelet Morphology Normal, Erythrocyte Sedimentation Rate 58H, Reticulocyte Count 2.2H, Prothrombin Time 9.9, Prothromb Time International Ratio 0.9, Activated Partial Thromboplast Time 27, Sodium Level 139, Potassium Level 4.2, Chloride Level 100 , Carbon Dioxide Level 30, Anion Gap 9, Blood Urea Nitrogen 27H, Creatinine 8.7H , Estimat Glomerular Filtration Rate 6.2, Glucose Level 96, Calcium Level 7.2L, Phosphorus Level 4.0, Iron Level 155, Total Iron Binding Capacity 194L, Percent Iron Saturation 80H, Unsaturated Iron Binding 39L, Lactate Dehydrogenase 234, Vitamin B12 Level 572, Folate 9.3 Height (Feet): 5 Height (Inches): 7.00 Weight (Pounds): 192 General Appearance: no apparent distress Cardiovascular: tachycardia Respiratory/Chest: decreased breath sounds Abdomen: soft Objective PE not changed GUNNER BARRERA Nov 03, 2017 13:00
--- NOTE | 2017-11-03 13:10 | Internal Med Progress Note ---
Subjective Date of Service: Nov 03, 2017 Physician Name Vincent Roberson Attending Physician Baldev Darden MD Current Medications Medications (Trade) Dose Ordered Sig/Krissy Route PRN Reason Start Time Stop Time Status Last Admin Dose Admin Acetaminophen (Tylenol) 650 mg Q4H PRN ORAL Mild Pain/Temp > 100.5 11/01/17 04:00 12/01/17 03:59 11/01/17 06:14 Amlodipine Besylate (Norvasc) 10 mg DAILY ORAL 11/01/17 09:00 12/01/17 08:59 11/02/17 08:25 Aspirin (ASA) 81 mg DAILY ORAL 11/01/17 09:00 12/01/17 08:59 11/03/17 08:23 Atorvastatin Calcium (Lipitor) 80 mg BEDTIME ORAL 11/01/17 21:00 12/01/17 20:59 11/02/17 21:08 Cinacalcet (Sensipar) 90 mg DAILY ORAL 11/01/17 15:00 12/01/17 14:59 11/03/17 08:23 Clobetasol Propionate (Temovate) 1 applic TWICE A DAY TOPIC 11/01/17 13:30 12/01/17 13:29 11/03/17 10:43 Clopidogrel Bisulfate (Plavix) 75 mg DAILY ORAL 11/01/17 09:00 12/01/17 08:59 11/03/17 08:23 Dextrose (Dextrose 50%) STAT PRN IV Hypoglycemia 11/01/17 03:45 12/01/17 03:44 Diphenhydramine HCl (Benadryl) 25 mg Q6H PRN IVP Itching 11/02/17 17:00 12/02/17 16:59 11/03/17 08:24 Docusate Sodium (Colace) 100 mg TID ORAL 11/01/17 18:00 12/01/17 17:59 11/03/17 12:20 Epoetin Jan (Procrit (for ESRD on dialysis)) 5,000 units WED-WED-WED SUBQ 11/03/17 21:00 12/03/17 20:59 Heparin Sodium (Porcine) (Heparin 5000 units/ml) 5,000 units EVERY 12 HOURS SUBQ 11/01/17 09:00 12/01/17 08:59 11/03/17 08:26 Heparin Sodium (Porcine) (Heparin Sod 1000 units/ml 10ml) 2,000 unit ONCE PRN IV for HD 11/03/17 07:00 11/03/17 23:59 Hydromorphone HCl (Dilaudid) 2 mg Q4H PRN IVP Severe Pain (Pain Scale 7-10) 11/01/17 11:00 11/08/17 10:59 11/03/17 10:42 Insulin Aspart (NovoLOG) BEFORE MEALS AND HS SUBQ 11/01/17 06:30 12/01/17 06:29 Metoprolol Succinate (Toprol XL) 50 mg BID ORAL 11/01/17 09:00 12/01/17 08:59 11/02/17 17:28 Ondansetron HCl (Zofran) 4 mg Q6H PRN IVP Nausea & Vomiting 11/01/17 13:45 12/01/17 13:44 11/01/17 15:08 Pantoprazole (Protonix) 40 mg DAILY ORAL 11/01/17 09:00 12/01/17 08:59 11/03/17 08:23 Sevelamer Carbonate (Renvela) 800 mg TIAC ORAL 11/01/17 06:30 12/01/17 06:29 11/03/17 12:20 Sodium Chloride 1,000 ml @ 500 mls/hr Q2H PRN IVLG sbp<90 during hd 11/03/17 13:24 11/03/17 23:59 Vitamin B Complex/ Vit C/Folic Acid (Nephrovite) 1 tab DAILY ORAL 11/02/17 15:00 12/02/17 14:59 11/03/17 08:23 Allergies: Coded Allergies: No Known Allergies (Unverified , 11/01/17) ROS Limited/Unobtainable: No Constitutional: Reports: no symptoms HEENT: Reports: no symptoms Cardiovascular: Reports: chest pain Respiratory: Reports: no symptoms Gastrointestinal/Abdominal: Reports: no symptoms Genitourinary: Reports: no symptoms Neurologic/Psychiatric: Reports: no symptoms Subjective 67 YO M with a history of coronary bypass admitted with chest pain. Cover for Elian Fisher-Dr Darden. Await dialysis today Objective Last Vital Signs Date Time Temp Pulse Resp B/P (MAP) Pulse Ox O2 Delivery O2 Flow Rate FiO2 11/03/17 11:12 97.0 11/03/17 08:36 96 120/63 11/03/17 08:00 16 92 Room Air 11/02/17 15:59 2.0 Laboratory Tests Test 11/03/17 07:40 White Blood Count 5.1 K/UL (4.8-10.8) Red Blood Count 2.89 M/UL (4.70-6.10) L Hemoglobin 9.6 G/DL (14.2-18.0) L Hematocrit 29.0 % (42.0-52.0) L Mean Corpuscular Volume 100 FL (80-99) H Mean Corpuscular Hemoglobin 33.1 PG (27.0-31.0) H Mean Corpuscular Hemoglobin Concent 33.0 G/DL (32.0-36.0) Red Cell Distribution Width 14.9 % (11.6-14.8) H Platelet Count 213 K/UL (150-450) Mean Platelet Volume 5.6 FL (6.5-10.1) L Neutrophils (%) (Auto) 65.1 % (45.0-75.0) Lymphocytes (%) (Auto) 18.3 % (20.0-45.0) L Monocytes (%) (Auto) 5.5 % (1.0-10.0) Eosinophils (%) (Auto) 10.1 % (0.0-3.0) H Basophils (%) (Auto) 1.1 % (0.0-2.0) Differential Total Cells Counted 100 Neutrophils % (Manual) 67 % (45-75) Lymphocytes % (Manual) 16 % (20-45) L Monocytes % (Manual) 4 % (1-10) Eosinophils % (Manual) 12 % (0-3) H Basophils % (Manual) 1 % (0-2) Band Neutrophils 0 % (0-8) Other Cell Type Pathologist comment Platelet Estimate Adequate Platelet Morphology Normal Erythrocyte Sedimentation Rate 58 MM/HR (0-20) H Reticulocyte Count 2.2 % (0.0-2.0) H Prothrombin Time 9.9 SEC (9.30-11.50) Prothromb Time International Ratio 0.9 (0.9-1.1) Activated Partial Thromboplast Time 27 SEC (23-33) Sodium Level 139 MMOL/L (136-145) Potassium Level 4.2 MMOL/L (3.5-5.1) Chloride Level 100 MMOL/L (98-107) Carbon Dioxide Level 30 MMOL/L (21-32) Anion Gap 9 mmol/L (5-15) Blood Urea Nitrogen 27 mg/dL (7-18) H Creatinine 8.7 MG/DL (0.55-1.30) H Estimat Glomerular Filtration Rate 6.2 mL/min (>60) Glucose Level 96 MG/DL (74-106) Calcium Level 7.2 MG/DL (8.5-10.1) L Phosphorus Level 4.0 MG/DL (2.5-4.9) Iron Level 155 ug/dL (50-175) Total Iron Binding Capacity 194 ug/dL (250-450) L Percent Iron Saturation 80 % (15-50) H Unsaturated Iron Binding 39 ug/dL (112-346) L Lactate Dehydrogenase 234 U/L (81-234) Vitamin B12 Level 572 PG/ML (193-986) Folate 9.3 NG/ML (8.6-58.9) Intake and Output 11/02/17 11/03/17 19:00 07:00 Intake Total 240 ml 200 ml Balance 240 ml 200 ml Intake Oral 240 ml 200 ml Objective General Appearance: WD/WN, no apparent distress, alert EENT: PERRL/EOMI, normal ENT inspection Neck: non-tender, normal alignment, supple, normal inspection Cardiovascular: normal peripheral pulses, normal rate, regular rhythm, no gallop/murmur, no JVD Respiratory/Chest: chest wall non-tender, lungs clear, normal breath sounds, no respiratory distress, no accessory muscle use Abdomen: normal bowel sounds, non tender, soft, no organomegaly, no mass Extremities: normal range of motion, non-tender Neurologic: shingle trimmer II-XII 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 (3) Chest pain Assessment & Plan: Ruled out for myocardial infarction. See cardiology note. (4) End stage renal failure on dialysis Assessment & Plan: Hemodialysis today 11/03/17-see nephrology note. (5) HTN (hypertension) Assessment & Plan: Continue norvasc and toprolol (6) Diabetes mellitus Assessment & Plan: Continue novolog sliding scale. (7) Anemia Status: progressing VINCENT ROBERSON Nov 03, 2017 13:10
--- NOTE | 2017-11-03 13:53 | Cardiac Electrophysiology PN ---
Assessment/Plan Assessment/Plan 1. Atypical Chest pain, ruled out for myocardial infarction. EF 60%. Hx of coronary bypass graft. S/P PDA stent in August 2017 Continue aspirin 81 mg daily, Plavix 75 mg daily, and Toprol-XL 50 mg b.i.d. 2. Hypertension. Continue Toprol-XL 50 mg b.i.d. and Norvasc 10 mg daily. 3. Diabetes. 4. End-stage renal disease, on hemodialysis. 5. History of recurrent syncope and status post implantable loop recorder DW RN Subjective Subjective Had HD today. No chest pain. On Abx now. RN at bedside Objective Last 24 Hour Vital Signs Date Time Temp Pulse Resp B/P (MAP) Pulse Ox O2 Delivery O2 Flow Rate FiO2 11/03/17 11:12 97.0 11/03/17 08:36 96 120/63 11/03/17 08:36 96 120/63 11/03/17 08:00 97.0 96 16 120/63 92 Room Air 11/03/17 04:00 98.2 101 20 103/61 100 Room Air 11/03/17 04:00 105 11/03/17 00:00 96 11/03/17 00:00 97.9 94 18 118/62 100 Room Air 11/02/17 20:00 97 11/02/17 20:00 98.4 96 18 117/59 97 Room Air 11/02/17 17:28 90 119/65 11/02/17 16:00 91 11/02/17 15:59 97.5 90 20 119/65 98 Nasal Cannula 2.0 Intake and Output 11/02/17 11/03/17 19:00 07:00 Intake Total 240 ml 200 ml Balance 240 ml 200 ml Intake Oral 240 ml 200 ml Laboratory Tests Test 11/03/17 07:40 White Blood Count 5.1 K/UL (4.8-10.8) Red Blood Count 2.89 M/UL (4.70-6.10) L Hemoglobin 9.6 G/DL (14.2-18.0) L Hematocrit 29.0 % (42.0-52.0) L Mean Corpuscular Volume 100 FL (80-99) H Mean Corpuscular Hemoglobin 33.1 PG (27.0-31.0) H Mean Corpuscular Hemoglobin Concent 33.0 G/DL (32.0-36.0) Red Cell Distribution Width 14.9 % (11.6-14.8) H Platelet Count 213 K/UL (150-450) Mean Platelet Volume 5.6 FL (6.5-10.1) L Neutrophils (%) (Auto) 65.1 % (45.0-75.0) Lymphocytes (%) (Auto) 18.3 % (20.0-45.0) L Monocytes (%) (Auto) 5.5 % (1.0-10.0) Eosinophils (%) (Auto) 10.1 % (0.0-3.0) H Basophils (%) (Auto) 1.1 % (0.0-2.0) Differential Total Cells Counted 100 Neutrophils % (Manual) 67 % (45-75) Lymphocytes % (Manual) 16 % (20-45) L Monocytes % (Manual) 4 % (1-10) Eosinophils % (Manual) 12 % (0-3) H Basophils % (Manual) 1 % (0-2) Band Neutrophils 0 % (0-8) Other Cell Type Pathologist comment Platelet Estimate Adequate Platelet Morphology Normal Erythrocyte Sedimentation Rate 58 MM/HR (0-20) H Reticulocyte Count 2.2 % (0.0-2.0) H Prothrombin Time 9.9 SEC (9.30-11.50) Prothromb Time International Ratio 0.9 (0.9-1.1) Activated Partial Thromboplast Time 27 SEC (23-33) Sodium Level 139 MMOL/L (136-145) Potassium Level 4.2 MMOL/L (3.5-5.1) Chloride Level 100 MMOL/L (98-107) Carbon Dioxide Level 30 MMOL/L (21-32) Anion Gap 9 mmol/L (5-15) Blood Urea Nitrogen 27 mg/dL (7-18) H Creatinine 8.7 MG/DL (0.55-1.30) H Estimat Glomerular Filtration Rate 6.2 mL/min (>60) Glucose Level 96 MG/DL (74-106) Calcium Level 7.2 MG/DL (8.5-10.1) L Phosphorus Level 4.0 MG/DL (2.5-4.9) Iron Level 155 ug/dL (50-175) Total Iron Binding Capacity 194 ug/dL (250-450) L Percent Iron Saturation 80 % (15-50) H Unsaturated Iron Binding 39 ug/dL (112-346) L Lactate Dehydrogenase 234 U/L (81-234) Vitamin B12 Level 572 PG/ML (193-986) Folate 9.3 NG/ML (8.6-58.9) Objective HEAD AND NECK: No JVD. LUNGS: Coarse rhonchi. CARDIOVASCULAR: Regular S1 and S2 with no gallop or murmur. Sternotomy is intact. ABDOMEN: Soft. EXTREMITIES: No pitting edema. LUISA JHAVERI Nov 03, 2017 13:53
--- NOTE | 2017-11-03 14:39 | Pulmonology Progress Note ---
Assessment/Plan Problems: (1) Chest pain (2) HTN (hypertension) (3) Anemia (4) Diabetes mellitus (5) Hemodialysis patient (6) Purulent bronchitis Assessment/Plan f/u cardio recommendations still having chest pain anemia w/u in progress. HD by comber tender Subjective ROS Limited/Unobtainable: No Interval Events: has some yellow phelgmn Allergies: Coded Allergies: No Known Allergies (Unverified , 11/01/17) Objective Last 24 Hour Vital Signs Date Time Temp Pulse Resp B/P (MAP) Pulse Ox O2 Delivery O2 Flow Rate FiO2 11/03/17 12:00 92 11/03/17 12:00 97.9 91 20 125/76 96 Room Air 11/03/17 11:12 97.0 11/03/17 08:36 96 120/63 11/03/17 08:36 96 120/63 11/03/17 08:00 97.0 96 16 120/63 92 Room Air 11/03/17 08:00 98 11/03/17 04:00 98.2 101 20 103/61 100 Room Air 11/03/17 04:00 105 11/03/17 00:00 96 11/03/17 00:00 97.9 94 18 118/62 100 Room Air 11/02/17 20:00 97 11/02/17 20:00 98.4 96 18 117/59 97 Room Air 11/02/17 17:28 90 119/65 11/02/17 16:00 91 11/02/17 15:59 97.5 90 20 119/65 98 Nasal Cannula 2.0 Intake and Output 11/02/17 11/03/17 19:00 07:00 Intake Total 240 ml 200 ml Balance 240 ml 200 ml Intake Oral 240 ml 200 ml Objective General Appearance: WD/WN, Lines, tubes and drains: peripheral HEENT: normocephalic, atraumatic Neck: non-tender, normal alignment Respiratory/Chest: chest wall non-tender, lungs clear Cardiovascular/Chest: normal peripheral pulses, normal rate Abdomen: normal bowel sounds Genitourinary/Rectal: normal genital exam Extremities: normal range of motion, slight edema Laboratory Tests 11/03/17 07:40: White Blood Count 5.1, Red Blood Count 2.89L, Hemoglobin 9.6L, Hematocrit 29.0L , Mean Corpuscular Volume 100H, Mean Corpuscular Hemoglobin 33.1H, Mean Corpuscular Hemoglobin Concent 33.0, Red Cell Distribution Width 14.9H, Platelet Count 213, Mean Platelet Volume 5.6L, Neutrophils (%) (Auto) 65.1, Lymphocytes (%) (Auto) 18.3L, Monocytes (%) (Auto) 5.5, Eosinophils (%) (Auto) 10.1H, Basophils (%) (Auto) 1.1, Differential Total Cells Counted 100, Neutrophils % (Manual) 67, Lymphocytes % (Manual) 16L, Monocytes % (Manual) 4, Eosinophils % (Manual) 12H, Basophils % (Manual) 1, Band Neutrophils 0, Other Cell Type Pathologist comment, Platelet Estimate Adequate, Platelet Morphology Normal, Erythrocyte Sedimentation Rate 58H, Reticulocyte Count 2.2H, Prothrombin Time 9.9, Prothromb Time International Ratio 0.9, Activated Partial Thromboplast Time 27, Sodium Level 139, Potassium Level 4.2, Chloride Level 100 , Carbon Dioxide Level 30, Anion Gap 9, Blood Urea Nitrogen 27H, Creatinine 8.7H , Estimat Glomerular Filtration Rate 6.2, Glucose Level 96, Calcium Level 7.2L, Phosphorus Level 4.0, Iron Level 155, Total Iron Binding Capacity 194L, Percent Iron Saturation 80H, Unsaturated Iron Binding 39L, Lactate Dehydrogenase 234, Vitamin B12 Level 572, Folate 9.3 Current Medications Medications (Trade) Dose Ordered Sig/Krissy Route PRN Reason Start Time Stop Time Status Last Admin Dose Admin Acetaminophen (Tylenol) 650 mg Q4H PRN ORAL Mild Pain/Temp > 100.5 11/01/17 04:00 12/01/17 03:59 11/01/17 06:14 Amlodipine Besylate (Norvasc) 10 mg DAILY ORAL 11/01/17 09:00 12/01/17 08:59 11/02/17 08:25 Aspirin (ASA) 81 mg DAILY ORAL 11/01/17 09:00 12/01/17 08:59 11/03/17 08:23 Atorvastatin Calcium (Lipitor) 80 mg BEDTIME ORAL 11/01/17 21:00 12/01/17 20:59 11/02/17 21:08 Cinacalcet (Sensipar) 90 mg DAILY ORAL 11/01/17 15:00 2/28/18 14:59 11/03/17 08:23 Clobetasol Propionate (Temovate) 1 applic TWICE A DAY TOPIC 11/01/17 13:30 12/01/17 13:29 11/03/17 10:43 Clopidogrel Bisulfate (Plavix) 75 mg DAILY ORAL 11/01/17 09:00 12/01/17 08:59 11/03/17 08:23 Dextrose (Dextrose 50%) STAT PRN IV Hypoglycemia 11/01/17 03:45 12/01/17 03:44 Diphenhydramine HCl (Benadryl) 25 mg Q6H PRN IVP Itching 11/02/17 17:00 12/02/17 16:59 11/03/17 08:24 Docusate Sodium (Colace) 100 mg TID ORAL 11/01/17 18:00 12/01/17 17:59 11/03/17 12:20 Epoetin Jan (Procrit (for ESRD on dialysis)) 5,000 units WED-WED-WED SUBQ 11/03/17 21:00 12/03/17 20:59 Heparin Sodium (Porcine) (Heparin 5000 units/ml) 5,000 units EVERY 12 HOURS SUBQ 11/01/17 09:00 12/01/17 08:59 11/03/17 08:26 Heparin Sodium (Porcine) (Heparin Sod 1000 units/ml 10ml) 2,000 unit ONCE PRN IV for HD 11/03/17 07:00 11/03/17 23:59 Hydromorphone HCl (Dilaudid) 3 mg Q4H PRN IVP Severe Pain (Pain Scale 7-10) 11/03/17 15:00 11/10/17 14:59 Insulin Aspart (NovoLOG) BEFORE MEALS AND HS SUBQ 11/01/17 06:30 12/01/17 06:29 Metoprolol Succinate (Toprol XL) 50 mg BID ORAL 11/01/17 09:00 12/01/17 08:59 11/02/17 17:28 Ondansetron HCl (Zofran) 4 mg Q6H PRN IVP Nausea & Vomiting 11/01/17 13:45 12/01/17 13:44 11/01/17 15:08 Pantoprazole (Protonix) 40 mg DAILY ORAL 11/01/17 09:00 12/01/17 08:59 11/03/17 08:23 Sevelamer Carbonate (Renvela) 800 mg TIAC ORAL 11/01/17 06:30 12/01/17 06:29 11/03/17 12:20 Sodium Chloride 1,000 ml @ 500 mls/hr Q2H PRN IVLG sbp<90 during hd 11/03/17 13:24 11/03/17 23:59 Vitamin B Complex/ Vit C/Folic Acid (Nephrovite) 1 tab DAILY ORAL 11/02/17 15:00 12/02/17 14:59 11/03/17 08:23 JUAN SPENCE Nov 03, 2017 14:39
--- NOTE | 2017-11-03 15:04 | Nephrology Progress Note ---
Assessment/Plan Problem List: (1) End stage renal failure on dialysis (2) CHF (congestive heart failure), NYHA class II (3) PVD (peripheral vascular disease) (4) HTN (hypertension) (5) Diabetes mellitus (6) CAD (coronary artery disease) (7) Chest pain Plan HD as tolerated Discussed with HD wire stockkeeper F/U Subjective Subjective Being dialyzed Objective Objective Last 24 Hour Vital Signs Date Time Temp Pulse Resp B/P (MAP) Pulse Ox O2 Delivery O2 Flow Rate FiO2 11/03/17 12:00 92 11/03/17 12:00 97.9 91 20 125/76 96 Room Air 11/03/17 11:12 97.0 11/03/17 08:36 96 120/63 11/03/17 08:36 96 120/63 11/03/17 08:00 97.0 96 16 120/63 92 Room Air 11/03/17 08:00 98 11/03/17 04:00 98.2 101 20 103/61 100 Room Air 11/03/17 04:00 105 11/03/17 00:00 96 11/03/17 00:00 97.9 94 18 118/62 100 Room Air 11/02/17 20:00 97 11/02/17 20:00 98.4 96 18 117/59 97 Room Air 11/02/17 17:28 90 119/65 11/02/17 16:00 91 11/02/17 15:59 97.5 90 20 119/65 98 Nasal Cannula 2.0 Intake and Output 11/02/17 11/03/17 19:00 07:00 Intake Total 240 ml 200 ml Balance 240 ml 200 ml Intake Oral 240 ml 200 ml Laboratory Tests 11/03/17 07:40: White Blood Count 5.1, Red Blood Count 2.89L, Hemoglobin 9.6L, Hematocrit 29.0L , Mean Corpuscular Volume 100H, Mean Corpuscular Hemoglobin 33.1H, Mean Corpuscular Hemoglobin Concent 33.0, Red Cell Distribution Width 14.9H, Platelet Count 213, Mean Platelet Volume 5.6L, Neutrophils (%) (Auto) 65.1, Lymphocytes (%) (Auto) 18.3L, Monocytes (%) (Auto) 5.5, Eosinophils (%) (Auto) 10.1H, Basophils (%) (Auto) 1.1, Differential Total Cells Counted 100, Neutrophils % (Manual) 67, Lymphocytes % (Manual) 16L, Monocytes % (Manual) 4, Eosinophils % (Manual) 12H, Basophils % (Manual) 1, Band Neutrophils 0, Other Cell Type Pathologist comment, Platelet Estimate Adequate, Platelet Morphology Normal, Erythrocyte Sedimentation Rate 58H, Reticulocyte Count 2.2H, Prothrombin Time 9.9, Prothromb Time International Ratio 0.9, Activated Partial Thromboplast Time 27, Sodium Level 139, Potassium Level 4.2, Chloride Level 100 , Carbon Dioxide Level 30, Anion Gap 9, Blood Urea Nitrogen 27H, Creatinine 8.7H , Estimat Glomerular Filtration Rate 6.2, Glucose Level 96, Calcium Level 7.2L, Phosphorus Level 4.0, Iron Level 155, Total Iron Binding Capacity 194L, Percent Iron Saturation 80H, Unsaturated Iron Binding 39L, Lactate Dehydrogenase 234, Vitamin B12 Level 572, Folate 9.3 Height (Feet): 5 Height (Inches): 7.00 Weight (Pounds): 192 Cardiovascular: normal rate Respiratory/Chest: lungs clear Extremities: other - no edema LUNA LAGUNAS Nov 03, 2017 15:04
--- NOTE | 2017-11-03 19:05 | Cardiology Report ---
APPROVED REPORT EKG Measurement Heart [id number] Sinus tachycardia Possible Anterior infarct, age undetermined Abnormal ECG
[2017-11-03 19:17] LABS: BASOPHILS % (AUTO) 1.1 % (0.0-2.0); EOSINOPHILS % (AUTO) 11.7 % (0.0-3.0); HEMATOCRIT 31.4 % (42.0-52.0); HEMOGLOBIN 10.5 G/DL (14.2-18.0); LYMPHOCYTES % (AUTO) 20.3 % (20.0-45.0); MEAN CORPUSCULAR VOLUME 99 FL (80-99); MONOCYTES % (AUTO) 7.3 % (1.0-10.0); NEUTROPHILS % (AUTO) 59.7 % (45.0-75.0); PLATELET COUNT 202 K/UL (150-450); RED BLOOD COUNT 3.17 M/UL (4.70-6.10); WHITE BLOOD COUNT 4.8 K/UL (4.8-10.8)
[2017-11-03] MEDS ORDERED: Epogen (for ESRD on dialysis) SUBQ SCH (21:00)
[2017-11-03] MEDS: Atorvastatin 80mg tab ORAL SCH (22:04)
[2017-11-04] VITALS: BP 111/68
--- NOTE | 2017-11-04 02:00 | Consultation ---
DATE OF CONSULTATION: NEPHROLOGY CONSULTATION CONSULTING PHYSICIAN: Juan Recio M.D. REFERRING PHYSICIAN: Dima Marie M.D. REASON FOR CONSULTATION: End-stage renal disease, requiring hemodialysis. HISTORY OF PRESENT ILLNESS: This is a 67-year-old male with history of end-stage renal disease, on hemodialysis. The patient is on dialysis every Wednesday, , and Wednesday, but he got an extra dialysis yesterday, which was Wednesday because of hyperkalemia. The patient was admitted yesterday for a chief complaint of chest pain. PAST MEDICAL HISTORY: Includes history of diabetes and diabetic nephropathy, history of congestive heart failure, and coronary artery disease. Apparently, the patient had coronary artery bypass graft, history of transmetatarsal amputation of both lower extremities, history of hypertension, and peripheral vascular disease. The patient had also history of angioplasty and stent of coronary artery in August 2017. MEDICATIONS: Reviewed in the EMR and reconciled. SOCIAL HISTORY: There is history of smoking per old records. No history of alcohol abuse. The patient lives at home. REVIEW OF SYSTEMS: Noncontributory. PHYSICAL EXAMINATION: GENERAL: The patient is a 67-year-old male, in no acute distress. VITAL SIGNS: Blood pressure 114/67, pulse 111, temperature 99, and respiratory rate is 20. HEENT: Pale conjunctivae. Anicteric sclerae. NECK: Supple. LUNGS: Clear to auscultation. HEART: S1, S2 without murmurs or rubs. ABDOMEN: Soft and nontender. EXTREMITIES: No cyanosis or edema. The patient has bilateral transmetatarsal amputation. LABORATORY FINDINGS: The CBC shows a WBC of 3.9, hematocrit is 29.8, hemoglobin is 10.1, and platelets 226,000. Chemistry panel shows a serum sodium 141, potassium 4.5, chloride 101, CO2 28, BUN is 17, creatinine 6.3, and blood sugar is 97. Calcium is 7.6. ASSESSMENT: This is a 67-year-old male, who was admitted with chest pain. He has significant history of coronary artery disease. In terms of his dialysis, he has usually Wednesday, , and Wednesday. Today, will be his dialysis day, however, he was just dialyzed yesterday and his laboratories are reasonable. His blood pressure is controlled. He has anemia from chronic kidney disease. PLAN: The patient will be dialyzed tomorrow and then I will try to get in back to schedule before he is discharged on Wednesday, , and Wednesday. The patient will be on Epogen. Iron panel will be checked to make sure he is not iron deficient. He will be on Nephro-Marquis one a day and Cardiology is following. Thank you very much, Dr. Marie for this consultation. Juan Recio M.D. DR: ISSAC JOB#: [id number] CC:
[2017-11-04 04:00] VITALS: BP 99/57
[2017-11-04] MEDS: NovoLOG Insulin Flexpen SUBQ SCH ×2 (06:30→11:30)
[2017-11-04 08:00] VITALS: BP 94/57
[2017-11-04] MEDS: Heparin 5000 units/ml inj SUBQ SCH (08:43)
[2017-11-04] MEDS: Sensipar 30mg Tab ORAL SCH (08:43)
[2017-11-04] MEDS: Nephrovite tab (Rena-Vite) ORAL SCH (08:43)
[2017-11-04] MEDS: Metoprolol Succinate XL 50mg tab ORAL SCH (08:43)
[2017-11-04] MEDS: Docusate 100mg cap ORAL SCH ×2 (08:44→13:06)
[2017-11-04] MEDS: Aspirin Baby 81mg ORAL SCH (08:44)
[2017-11-04 08:58] LABS: ANION GAP 8 mmol/L (5-15); BLOOD UREA NITROGEN 20 mg/dL (7-18); CALCIUM 7.7 MG/DL (8.5-10.1); CARBON DIOXIDE 34 MMOL/L (21-32); CHLORIDE 96 MMOL/L (98-107); CREATININE 6.7 MG/DL (0.55-1.30); POTASSIUM 3.9 MMOL/L (3.5-5.1); SODIUM 138 MMOL/L (136-145)
[2017-11-04] MEDS: Clobetasol Cream 0.05% 15gm TOPIC SCH (09:59)
--- NOTE | 2017-11-04 10:32 | Cardiac Electrophysiology PN ---
Assessment/Plan Assessment/Plan 1. Atypical Chest pain, ruled out for myocardial infarction. EF 60%. Hx of coronary bypass graft. S/P PDA stent in August 2017 Continue aspirin 81 mg daily, Plavix 75 mg daily, and Toprol-XL 50 mg b.i.d. 2. Hypertension. Continue Toprol-XL 50 mg b.i.d. and Norvasc 10 mg daily. 3. Diabetes. 4. End-stage renal disease, on hemodialysis. 5. History of recurrent syncope and status post implantable loop recorder No arrhythmias on tele DW RN DC planning Subjective Subjective Had HD yesterday. No chest pain or SOB. Objective Last 24 Hour Vital Signs Date Time Temp Pulse Resp B/P (MAP) Pulse Ox O2 Delivery O2 Flow Rate FiO2 11/04/17 08:43 95 99/57 11/04/17 08:43 95 99/57 11/04/17 08:00 96 11/04/17 08:00 97.7 96 20 94/57 Room Air 11/04/17 04:00 95 11/04/17 04:00 98.3 96 20 99/57 Room Air 11/04/17 00:00 99.2 99 20 111/68 Room Air 11/04/17 00:00 104 11/03/17 20:00 107 11/03/17 20:00 97.9 96 20 92/61 Room Air 11/03/17 19:14 99.3 11/03/17 18:51 96 128/75 11/03/17 18:30 Room Air 11/03/17 18:30 99.0 96 20 128/75 Room Air 11/03/17 16:34 99.3 89 20 98/64 96 Room Air 2.0 11/03/17 16:00 89 11/03/17 15:00 99.3 89 20 98/64 Room Air 11/03/17 15:00 Room Air 11/03/17 12:00 92 11/03/17 12:00 97.9 91 20 125/76 96 Room Air 11/03/17 11:12 97.0 Intake and Output 11/03/17 11/04/17 19:00 07:00 Intake Total 360 ml 300 ml Output Total 3294 ml Balance -2934 ml 300 ml Intake Oral 360 ml 300 ml Output Hemodialysis UF 3294 ml Laboratory Tests Test 11/03/17 19:00 11/04/17 06:35 White Blood Count 4.8 K/UL (4.8-10.8) Red Blood Count 3.17 M/UL (4.70-6.10) L Hemoglobin 10.5 G/DL (14.2-18.0) L Hematocrit 31.4 % (42.0-52.0) L Mean Corpuscular Volume 99 FL (80-99) Mean Corpuscular Hemoglobin 33.2 PG (27.0-31.0) H Mean Corpuscular Hemoglobin Concent 33.5 G/DL (32.0-36.0) Red Cell Distribution Width 15.0 % (11.6-14.8) H Platelet Count 202 K/UL (150-450) Mean Platelet Volume 6.3 FL (6.5-10.1) L Neutrophils (%) (Auto) 59.7 % (45.0-75.0) Lymphocytes (%) (Auto) 20.3 % (20.0-45.0) Monocytes (%) (Auto) 7.3 % (1.0-10.0) Eosinophils (%) (Auto) 11.7 % (0.0-3.0) H Basophils (%) (Auto) 1.1 % (0.0-2.0) Sodium Level 138 MMOL/L (136-145) Potassium Level 3.9 MMOL/L (3.5-5.1) Chloride Level 96 MMOL/L (98-107) L Carbon Dioxide Level 34 MMOL/L (21-32) H Anion Gap 8 mmol/L (5-15) Blood Urea Nitrogen 20 mg/dL (7-18) H Creatinine 6.7 MG/DL (0.55-1.30) H Estimat Glomerular Filtration Rate 8.3 mL/min (>60) Glucose Level 90 MG/DL (74-106) Calcium Level 7.7 MG/DL (8.5-10.1) L Pro-B-Type Natriuretic Peptide 4463 pg/mL (0-125) H Objective HEAD AND NECK: No JVD. LUNGS: Coarse rhonchi. CARDIOVASCULAR: Regular S1 and S2 with no gallop or murmur. Sternotomy is intact. ABDOMEN: Soft. EXTREMITIES: No pitting edema. LUISA JHAVERI Nov 04, 2017 10:32
[2017-11-04 12:00] VITALS: BP 85/53
--- NOTE | 2017-11-04 12:53 | Nephrology Progress Note ---
Assessment/Plan Problem List: (1) Hyperkalemia (2) End stage renal failure on dialysis (3) Anemia (4) CAD (coronary artery disease) Assessment ESRD with high K ACS Anemia DM HTN Plan Plan: Dialysis 11/05 adjust BP meds and BS Per cardiology Subjective ROS Limited/Unobtainable: No Constitutional: Reports: malaise Objective Objective Last 24 Hour Vital Signs Date Time Temp Pulse Resp B/P (MAP) Pulse Ox O2 Delivery O2 Flow Rate FiO2 11/04/17 12:00 97.7 96 20 85/53 98 Room Air 11/04/17 08:43 95 99/57 11/04/17 08:43 95 99/57 11/04/17 08:00 96 11/04/17 08:00 97.7 96 20 94/57 Room Air 11/04/17 04:00 95 11/04/17 04:00 98.3 96 20 99/57 Room Air 11/04/17 00:00 99.2 99 20 111/68 Room Air 11/04/17 00:00 104 11/03/17 20:00 107 11/03/17 20:00 97.9 96 20 92/61 Room Air 11/03/17 19:14 99.3 11/03/17 18:51 96 128/75 11/03/17 18:30 Room Air 11/03/17 18:30 99.0 96 20 128/75 Room Air 11/03/17 16:34 99.3 89 20 98/64 96 Room Air 2.0 11/03/17 16:00 89 11/03/17 15:00 99.3 89 20 98/64 Room Air 11/03/17 15:00 Room Air Intake and Output 11/03/17 11/04/17 19:00 07:00 Intake Total 360 ml 300 ml Output Total 3294 ml Balance -2934 ml 300 ml Intake Oral 360 ml 300 ml Output Hemodialysis UF 3294 ml Laboratory Tests 11/03/17 19:00: White Blood Count 4.8, Red Blood Count 3.17L, Hemoglobin 10.5L, Hematocrit 31.4L , Mean Corpuscular Volume 99, Mean Corpuscular Hemoglobin 33.2H, Mean Corpuscular Hemoglobin Concent 33.5, Red Cell Distribution Width 15.0H, Platelet Count 202, Mean Platelet Volume 6.3L, Neutrophils (%) (Auto) 59.7, Lymphocytes (%) (Auto) 20.3, Monocytes (%) (Auto) 7.3, Eosinophils (%) (Auto) 11.7H, Basophils (%) (Auto) 1.1 11/04/17 06:35: Sodium Level 138, Potassium Level 3.9, Chloride Level 96L, Carbon Dioxide Level 34H, Anion Gap 8, Blood Urea Nitrogen 20H, Creatinine 6.7H, Estimat Glomerular Filtration Rate 8.3, Glucose Level 90, Calcium Level 7.7L, Pro-B-Type Natriuretic Peptide 4463H Height (Feet): 5 Height (Inches): 7.00 Weight (Pounds): 190 General Appearance: no apparent distress Respiratory/Chest: decreased breath sounds Abdomen: soft Objective PE not changed GUNNER BARRERA Nov 04, 2017 12:53
[2017-11-04 16:00] VITALS: BP 104/78
--- NOTE | 2017-11-04 17:22 | Pulmonology Progress Note ---
Assessment/Plan Problems: (1) Chest pain (2) HTN (hypertension) (3) Anemia (4) Diabetes mellitus (5) Hemodialysis patient (6) Purulent bronchitis Assessment/Plan f/u cardio recommendations still having chest pain anemia w/u in progress. 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 cleared by guardian family member f/u by primary physician Subjective ROS Limited/Unobtainable: No Constitutional: Reports: no symptoms HEENT: Repors: no symptoms Allergies: Coded Allergies: No Known Allergies (Unverified , 11/01/17) Objective Last 24 Hour Vital Signs Date Time Temp Pulse Resp B/P (MAP) Pulse Ox O2 Delivery O2 Flow Rate FiO2 11/04/17 16:00 98.1 89 20 104/78 98 Room Air 11/04/17 12:00 97.7 96 20 85/53 98 Room Air 11/04/17 08:43 95 99/57 11/04/17 08:43 95 99/57 11/04/17 08:00 96 11/04/17 08:00 97.7 96 20 94/57 Room Air 11/04/17 04:00 95 11/04/17 04:00 98.3 96 20 99/57 Room Air 11/04/17 00:00 99.2 99 20 111/68 Room Air 11/04/17 00:00 104 11/03/17 20:00 107 11/03/17 20:00 97.9 96 20 92/61 Room Air 11/03/17 19:14 99.3 11/03/17 18:51 96 128/75 11/03/17 18:30 Room Air 11/03/17 18:30 99.0 96 20 128/75 Room Air Intake and Output 11/03/17 11/04/17 19:00 07:00 Intake Total 360 ml 300 ml Output Total 3294 ml Balance -2934 ml 300 ml Intake Oral 360 ml 300 ml Output Hemodialysis UF 3294 ml Objective General Appearance: WD/WN, Lines, tubes and drains: peripheral HEENT: normocephalic, atraumatic Neck: non-tender, normal alignment Respiratory/Chest: chest wall non-tender, lungs clear Cardiovascular/Chest: normal peripheral pulses, normal rate Abdomen: normal bowel sounds Genitourinary/Rectal: normal genital exam Extremities: normal range of motion, slight edema Laboratory Tests 11/03/17 19:00: White Blood Count 4.8, Red Blood Count 3.17L, Hemoglobin 10.5L, Hematocrit 31.4L , Mean Corpuscular Volume 99, Mean Corpuscular Hemoglobin 33.2H, Mean Corpuscular Hemoglobin Concent 33.5, Red Cell Distribution Width 15.0H, Platelet Count 202, Mean Platelet Volume 6.3L, Neutrophils (%) (Auto) 59.7, Lymphocytes (%) (Auto) 20.3, Monocytes (%) (Auto) 7.3, Eosinophils (%) (Auto) 11.7H, Basophils (%) (Auto) 1.1 11/04/17 06:35: Sodium Level 138, Potassium Level 3.9, Chloride Level 96L, Carbon Dioxide Level 34H, Anion Gap 8, Blood Urea Nitrogen 20H, Creatinine 6.7H, Estimat Glomerular Filtration Rate 8.3, Glucose Level 90, Calcium Level 7.7L, Pro-B-Type Natriuretic Peptide 4463H Current Medications Medications (Trade) Dose Ordered Sig/Krissy Route PRN Reason Start Time Stop Time Status Last Admin Dose Admin Acetaminophen (Tylenol) 650 mg Q4H PRN ORAL Mild Pain/Temp > 100.5 11/01/17 04:00 12/01/17 03:59 11/01/17 06:14 Amlodipine Besylate (Norvasc) 2.5 mg DAILY ORAL 11/05/17 09:00 12/05/17 08:59 Aspirin (ASA) 81 mg DAILY ORAL 11/01/17 09:00 12/01/17 08:59 11/04/17 08:44 Atorvastatin Calcium (Lipitor) 80 mg BEDTIME ORAL 11/01/17 21:00 12/01/17 20:59 11/03/17 22:04 Cinacalcet (Sensipar) 90 mg DAILY ORAL 11/01/17 15:00 12/01/17 14:59 11/04/17 08:43 Clobetasol Propionate (Temovate) 1 applic TWICE A DAY TOPIC 11/01/17 13:30 12/01/17 13:29 11/04/17 09:59 Clopidogrel Bisulfate (Plavix) 75 mg DAILY ORAL 11/01/17 09:00 12/01/17 08:59 11/04/17 08:44 Dextrose (Dextrose 50%) STAT PRN IV Hypoglycemia 11/01/17 03:45 12/01/17 03:44 Diphenhydramine HCl (Benadryl) 25 mg Q6H PRN IVP Itching 11/02/17 17:00 12/02/17 16:59 11/03/17 08:24 Docusate Sodium (Colace) 100 mg TID ORAL 11/01/17 18:00 12/01/17 17:59 11/04/17 13:06 Epoetin Jan (Procrit (for ESRD on dialysis)) 5,000 units WED-WED-WED SUBQ 11/03/17 21:00 12/03/17 20:59 11/03/17 22:09 Heparin Sodium (Porcine) (Heparin 5000 units/ml) 5,000 units EVERY 12 HOURS SUBQ 11/01/17 09:00 12/01/17 08:59 11/04/17 08:43 Hydromorphone HCl (Dilaudid) 3 mg Q4H PRN IVP Severe Pain (Pain Scale 7-10) 11/03/17 15:00 11/10/17 14:59 11/04/17 06:45 Insulin Aspart (NovoLOG) BEFORE MEALS AND HS SUBQ 11/01/17 06:30 12/01/17 06:29 Levofloxacin 50 ml @ 50 mls/hr Q48H IVPB 11/05/17 16:00 11/12/17 15:59 Metoprolol Tartrate (Lopressor) 50 mg BID ORAL 11/04/17 18:00 12/04/17 17:59 Ondansetron HCl (Zofran) 4 mg Q6H PRN IVP Nausea & Vomiting 11/01/17 13:45 12/01/17 13:44 11/01/17 15:08 Pantoprazole (Protonix) 40 mg DAILY ORAL 11/01/17 09:00 12/01/17 08:59 11/04/17 08:43 Sevelamer Carbonate (Renvela) 800 mg TIAC ORAL 11/01/17 06:30 12/01/17 06:29 11/04/17 13:06 Vitamin B Complex/ Vit C/Folic Acid (Nephrovite) 1 tab DAILY ORAL 11/02/17 15:00 12/02/17 14:59 11/04/17 08:43 JUAN SPENCE 1, 2018 17:22
--- NOTE | 2017-11-04 17:43 | Internal Med Progress Note ---
Subjective Date of Service: Nov 04, 2017 Physician Name Vincent Roberson Attending Physician Baldev Darden MD Current Medications Medications (Trade) Dose Ordered Sig/Krissy Route PRN Reason Start Time Stop Time Status Last Admin Dose Admin Acetaminophen (Tylenol) 650 mg Q4H PRN ORAL Mild Pain/Temp > 100.5 11/01/17 04:00 12/01/17 03:59 11/01/17 06:14 Amlodipine Besylate (Norvasc) 2.5 mg DAILY ORAL 11/05/17 09:00 12/05/17 08:59 Aspirin (ASA) 81 mg DAILY ORAL 11/01/17 09:00 12/01/17 08:59 11/04/17 08:44 Atorvastatin Calcium (Lipitor) 80 mg BEDTIME ORAL 11/01/17 21:00 12/01/17 20:59 11/03/17 22:04 Cinacalcet (Sensipar) 90 mg DAILY ORAL 11/01/17 15:00 12/01/17 14:59 11/04/17 08:43 Clobetasol Propionate (Temovate) 1 applic TWICE A DAY TOPIC 11/01/17 13:30 12/01/17 13:29 11/04/17 09:59 Clopidogrel Bisulfate (Plavix) 75 mg DAILY ORAL 11/01/17 09:00 12/01/17 08:59 11/04/17 08:44 Dextrose (Dextrose 50%) STAT PRN IV Hypoglycemia 11/01/17 03:45 12/01/17 03:44 Diphenhydramine HCl (Benadryl) 25 mg Q6H PRN IVP Itching 11/02/17 17:00 12/02/17 16:59 11/03/17 08:24 Docusate Sodium (Colace) 100 mg TID ORAL 11/01/17 18:00 12/01/17 17:59 11/04/17 13:06 Epoetin Jan (Procrit (for ESRD on dialysis)) 5,000 units WED-WED-WED SUBQ 11/03/17 21:00 12/03/17 20:59 11/03/17 22:09 Heparin Sodium (Porcine) (Heparin 5000 units/ml) 5,000 units EVERY 12 HOURS SUBQ 11/01/17 09:00 12/01/17 08:59 11/04/17 08:43 Hydromorphone HCl (Dilaudid) 3 mg Q4H PRN IVP Severe Pain (Pain Scale 7-10) 11/03/17 15:00 11/10/17 14:59 11/04/17 06:45 Insulin Aspart (NovoLOG) BEFORE MEALS AND HS SUBQ 11/01/17 06:30 12/01/17 06:29 Levofloxacin 50 ml @ 50 mls/hr Q48H IVPB 11/05/17 16:00 11/12/17 15:59 Metoprolol Tartrate (Lopressor) 50 mg BID ORAL 11/04/17 18:00 12/04/17 17:59 Ondansetron HCl (Zofran) 4 mg Q6H PRN IVP Nausea & Vomiting 11/01/17 13:45 12/01/17 13:44 11/01/17 15:08 Pantoprazole (Protonix) 40 mg DAILY ORAL 11/01/17 09:00 12/01/17 08:59 11/04/17 08:43 Sevelamer Carbonate (Renvela) 800 mg TIAC ORAL 11/01/17 06:30 12/01/17 06:29 11/04/17 13:06 Vitamin B Complex/ Vit C/Folic Acid (Nephrovite) 1 tab DAILY ORAL 11/02/17 15:00 12/02/17 14:59 11/04/17 08:43 Allergies: Coded Allergies: No Known Allergies (Unverified , 11/01/17) ROS Limited/Unobtainable: No Constitutional: Reports: no symptoms HEENT: Reports: no symptoms Cardiovascular: Reports: no symptoms Respiratory: Reports: no symptoms Gastrointestinal/Abdominal: Reports: no symptoms Genitourinary: Reports: no symptoms Neurologic/Psychiatric: Reports: no symptoms Subjective 67 YO M with a history of coronary bypass admitted with chest pain. Cover for Int Med-Dr Darden. Await dialysis today Objective Last Vital Signs Date Time Temp Pulse Resp B/P (MAP) Pulse Ox O2 Delivery O2 Flow Rate FiO2 11/04/17 16:00 98.1 89 20 104/78 98 Room Air 11/03/17 16:34 2.0 Laboratory Tests Test 11/03/17 19:00 11/04/17 06:35 White Blood Count 4.8 K/UL (4.8-10.8) Red Blood Count 3.17 M/UL (4.70-6.10) L Hemoglobin 10.5 G/DL (14.2-18.0) L Hematocrit 31.4 % (42.0-52.0) L Mean Corpuscular Volume 99 FL (80-99) Mean Corpuscular Hemoglobin 33.2 PG (27.0-31.0) H Mean Corpuscular Hemoglobin Concent 33.5 G/DL (32.0-36.0) Red Cell Distribution Width 15.0 % (11.6-14.8) H Platelet Count 202 K/UL (150-450) Mean Platelet Volume 6.3 FL (6.5-10.1) L Neutrophils (%) (Auto) 59.7 % (45.0-75.0) Lymphocytes (%) (Auto) 20.3 % (20.0-45.0) Monocytes (%) (Auto) 7.3 % (1.0-10.0) Eosinophils (%) (Auto) 11.7 % (0.0-3.0) H Basophils (%) (Auto) 1.1 % (0.0-2.0) Sodium Level 138 MMOL/L (136-145) Potassium Level 3.9 MMOL/L (3.5-5.1) Chloride Level 96 MMOL/L (98-107) L Carbon Dioxide Level 34 MMOL/L (21-32) H Anion Gap 8 mmol/L (5-15) Blood Urea Nitrogen 20 mg/dL (7-18) H Creatinine 6.7 MG/DL (0.55-1.30) H Estimat Glomerular Filtration Rate 8.3 mL/min (>60) Glucose Level 90 MG/DL (74-106) Calcium Level 7.7 MG/DL (8.5-10.1) L Pro-B-Type Natriuretic Peptide 4463 pg/mL (0-125) H Intake and Output 11/03/17 11/04/17 19:00 07:00 Intake Total 360 ml 300 ml Output Total 3294 ml Balance -2934 ml 300 ml Intake Oral 360 ml 300 ml Output Hemodialysis UF 3294 ml Objective General Appearance: WD/WN, no apparent distress, alert EENT: PERRL/EOMI, normal ENT inspection Neck: non-tender, normal alignment, supple, normal inspection Cardiovascular: normal peripheral pulses, normal rate, regular rhythm, no gallop/murmur, no JVD Respiratory/Chest: chest wall non-tender, lungs clear, normal breath sounds, no respiratory distress, no accessory muscle use Abdomen: normal bowel sounds, non tender, soft, no organomegaly, no mass Extremities: normal range of motion, non-tender 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 (3) Chest pain Assessment & Plan: Ruled out for myocardial infarction. See cardiology note. (4) End stage renal failure on dialysis Assessment & Plan: Hemodialysis today 11/04/17-see nephrology note. (5) HTN (hypertension) Assessment & Plan: Continue norvasc and toprolol (6) Diabetes mellitus Assessment & Plan: Continue novolog sliding scale. (7) Anemia Status: stable Assessment/Plan Discharge home today after dialysis VINCENT ROBERSON Nov 04, 2017 17:43
[2017-11-04] MEDS ORDERED: Tubing IV Secondary IV ONE (17:59)
[2017-11-04] MEDS ORDERED: Metoprolol Tartrate 50mg tab ORAL SCH (18:00)
--- NOTE | 2017-11-05 14:14 | Discharge Summary ---
Discharge Summary Hospital Course Date of Admission Oct 31, 2017 at 22:42 Date of Discharge Nov 04, 2017 at 18:00 Admitting Diagnosis HPI Forrest Hubbard is a 67 year old male who was admitted on Oct 31, 2017 at 22:42 for Chest Pain Hospital Course [id number] Discharge Discharge Disposition Patient was discharged to Home (01) Discharge Diagnoses: Estefanía Rosas NP Nov 05, 2017 14:14
[2017-11-05] MEDS ORDERED: Levofloxacin 250mg/D5W 50ml IVPB SCH (16:00)
--- NOTE | 2017-11-06 04:15 | Discharge Summary 2 SIG ---
DATE OF ADMISSION: 10/31/2017 DATE OF DISCHARGE: 11/04/2017 ATTENDING DOCTOR: Baldev Darden M.D. CONSULTANTS: 1. Abdiaziz Killian M.D. 2. Carlos Springer M.D. 3. Jose Flores M.D. BRIEF HOSPITAL COURSE: The patient is a 67-year-old male, who presented to ED with complaints of chest pain. He has a longstanding history of coronary artery disease, status post coronary artery bypass graft in 2015 and also had a stent placed at [facility] in 07/2017. He began to experience chest pain on 10/30/2017. The pain was located on the left side and there was no radiation to the jaw or to the shoulder. He initially presented to [facility] Emergency Room. Initial troponin was negative. He was transferred to [facility] for insurance purposes. The patient was admitted to the telemetry for evaluation of chest pain to rule out acute coronary syndrome. He has past medical history significant for end-stage renal disease, on hemodialysis, hypertension, diabetes type 2, [place], coronary artery disease, and anemia of chronic disease. He was given aspirin and Plavix and was continued on Toprol-XL 50 mg and Coreg was discontinued. He was given Norvasc and Lipitor. Echocardiogram done showed ejection fraction of 60% with normal left ventricular size, function, and wall motion. He was ruled out for myocardial infarction. He was given inpatient hemodialysis. Potassium on admission was 7.0. He was then started on Epogen and was given Nephro-Marquis daily. Troponins have been negative, and he complained of pain on the left hand. x-ray showed no acute process. Chest x-ray also with no acute process. He was eventually discharged home to follow up with primary physician. FINAL DIAGNOSES: 1. Coronary artery disease, ruled out for myocardial infarction. 2. End-stage renal disease, on hemodialysis. 3. Hypertension. 4. Diabetes mellitus. 5. Anemia of kidney disease. 6. Hyperkalemia. 7. Purulent bronchitis. 8. History of recurrent syncope, status post implantable loop recorder. 9. Peripheral vascular disease. 10. Congestive heart failure NYHA class 2. DISPOSITION: The patient was discharged home. DISCHARGE MEDICATIONS: Refer to medication list. DISCHARGE INSTRUCTIONS: Follow up with PMD in a week. Continue with hemodialysis every Wednesday, , and Wednesday. Abdiaziz Klilian M.D. I have been assigned to dictate discharge summary on this account and I was not involved in the patient's management. Estefanía Rosas N.P. DR: RAJIV JOB#: [id number] CC: ARTI
--- NOTE | 2017-11-08 14:00 | Cardiology Report ---
APPROVED REPORT EKG Measurement Heart [id number] ID [id number] Sinus tachycardia Nonspecific T wave abnormality Abnormal ECG
--- NOTE | 2017-11-17 13:19 | Physician Query ---
--------- THIS DOCUMENT IS A PERMANENT PART OF THE MEDICAL RECORD --------- PLEASE COMPLETE THE DOCUMENT BEFORE SIGNING Dear Dr. SPENCE Date 11/17/17 Hotel Operation Manager/CDS' Name: SHAI DEE, KIRA Exercise your independent professional judgment when responding to query. Questions asked do not imply particular answer is desired or expected. We greatly appreciate your clarification on this issue. Clinical Documentation States: BRIEF HOSPITAL COURSE: The patient is a 67-year-old male, who presented to ED with complaints of chest pain. He has a longstanding history of coronary artery disease, status post coronary artery bypass graft in 2015 and also had a stent placed at [facility] in 07/2017. He began to experience chest pain on 10/30/2017. The pain was located on the left side and there was no radiation to the jaw or to the shoulder Clinical Findings Show: He was given aspirin and Plavix and was continued on Toprol-XL 50 mg and Coreg was discontinued. He was given Norvasc and Lipitor. Echocardiogram done showed ejection fraction of 60% with normal left ventricular size, function, and wall motion. He was ruled out for myocardial infarction. Please document the suspected etiology of Chest Pain: a.Type: []Cardiac []Non-cardiac []Unspecified b.Etiology - cardiac [] Aortic dissection []Mitral valve prolapsed [] Acute myocardial infarction []Spasm of coronary arteries [] Coronary Artery Disease []Pericarditis c.Etiology - non-cardiac [] Anxiety []Pleurisy [] Cancer []Pneumonia, type [] Costochondritis []Pneumothorax [] GERD/Esophagitis []Pulmonary embolism [] Unable to determine []Other: JUAN SPENCE M.D. DATE & TIME MTDD
== END 2017-11-04 18:00 | disposition home or self-care (01) | DRG 313 ==
LOC: 2E 22:42
PROC: 5A1D70Z Performance of Urinary Filtration, Intermittent, Less than 6 Hours Per Day (ICD-10-PCS; principal; 2017-11-01)
PROC: 5A1D70Z Performance of Urinary Filtration, Intermittent, Less than 6 Hours Per Day (ICD-10-PCS; 2017-11-03)
DX: R07.9 Chest pain, unspecified (principal); I25.2 Old myocardial infarction; I13.2 Hypertensive heart and chronic kidney disease with heart failure and with stage 5 chronic kidney disease, or end stage renal disease; N18.6 End stage renal disease; E11.21 Type 2 diabetes mellitus with diabetic nephropathy; I50.9 Heart failure, unspecified; E11.40 Type 2 diabetes mellitus with diabetic neuropathy, unspecified; E87.5 Hyperkalemia; E11.22 Type 2 diabetes mellitus with diabetic chronic kidney disease; Z99.2 Dependence on renal dialysis; I73.9 Peripheral vascular disease, unspecified; I25.10 Atherosclerotic heart disease of native coronary artery without angina pectoris; J41.1 Mucopurulent chronic bronchitis; Z95.1 Presence of aortocoronary bypass graft; E66.01 Morbid (severe) obesity due to excess calories; Z95.5 Presence of coronary angioplasty implant and graft; Z79.02 Long term (current) use of antithrombotics/antiplatelets; Z89.432 Acquired absence of left foot; Z89.431 Acquired absence of right foot; Z87.891 Personal history of nicotine dependence; D63.1 Anemia in chronic kidney disease
CPT/HCPCS: 36415; 71045; 71046; 80048; 80053; 80061; 82378; 82607; 82746; 82962; 82977; 83036; 83540; 83550; 83615; 83735; 83880; 84100; 84443; 84484; 84550; 85007; 85025; 85044; 85060; 85610; 85651; 85730; 86140; 93005; 93306; J1815; J2405